=== PATIENT | male | born 1930 | race Caucasian/White ===

== ENCOUNTER → 2016-04-17 | Outpatient (CLI) | payer MEDICARE, BC, OTHER | LOC: YCHH 10:20 | PROVIDERS: ATTEND Family Medicine | DX: I50.33 Acute on chronic diastolic (congestive) heart failure (principal); E11.9 Type 2 diabetes mellitus without complications; D50.9 Iron deficiency anemia, unspecified; N19 Unspecified kidney failure ==

== ENCOUNTER → 2016-05-09 | Outpatient (CLI) | payer MEDICARE, BC, OTHER | LOC: YCHH 10:19 | PROVIDERS: ATTEND Family Medicine | DX: N18.3 Chronic kidney disease, stage 3 (moderate) (principal); N17.9 Acute kidney failure, unspecified ==

== ENCOUNTER → 2016-05-15 | Outpatient (CLI) | payer MEDICARE, BC, OTHER | LOC: YCHH 11:40 | PROVIDERS: ATTEND Family Medicine | DX: N18.3 Chronic kidney disease, stage 3 (moderate) (principal); N17.9 Acute kidney failure, unspecified; E11.9 Type 2 diabetes mellitus without complications ==

== ENCOUNTER 2016-06-04 15:11 | Inpatient (IN) | payer MEDICARE, BC, OTHER ==
[2016-06-04] MEDS ORDERED: FUROSEMIDE INJ 40 MG/4 ML VIAL IV ONE ×2 (15:58→19:58)
[2016-06-04] MEDS ORDERED: metOLazone 2.5 MG TAB PO ONE (15:58)
--- NOTE | 2016-06-04 16:39 | RAD ---
EXAM DESCRIPTION: XR CHEST 2 VIEWS CLINICAL HISTORY: Shortness of Breath. COMPARISON: 12/07/2015 TECHNIQUE: Two-views of the chest. FINDINGS: Median sternotomy wires. Heart size normal. Atherosclerotic aorta. Hiatal hernia Stable increased density medial left lung base likely linear subsegmental atelectasis or scar. Paucity of vascular markings in the lung apices similar to prior study. There is some linear scar in the left lung apex No pulmonary edema, acute alveolar infiltrate or effusion. No pneumothorax IMPRESSION: Stable chest. No acute infiltrate Paucity of vascular markings in the lung apices may relate to emphysema Stable linear subsegmental atelectasis or scar Electronically signed by: Hitesh Olvera MD 06/04/2016 16:37
--- NOTE | 2016-06-04 17:32 | ED.PDOC ---
History of Present Illness - General Chief Complaint: Cardiovascular Problem Stated Complaint: increased of work of breathing, weight gain Time Seen by Provider: 06/04/16 15:35 Source: patient Exam Limitations: no limitations - History of Present Illness Initial Comments: The patient is an 86-year-old male presenting to the emergency room secondary to progressive shortness of breath over the last week to week and a half. He has been retaining fluid with an increase in his baseline weight of approximately 7 pounds over the last week. He does take Lasix but his Lasix dose was decreased about a week ago as well. He does have some renal insufficiency which is the reason for reducing the Lasix dose. He is technically saturating well as far as his oxygen levels but he gets very short of breath with any activity. His abdomen is distended with some moderate ascites. No real peripheral edema. He does have some mild rales at bilateral lung bases. He does have a history of iron deficiency. He has had upper and lower endoscopies along with a pill endoscopy that were negative for any source of bleeding he has also been followed by Dr. Murguia and has received IV iron infusions in the past. No chest pain. No syncope. No near syncope.he does have a history of congestive heart failure. He has had admissions for this in the past. Timing/Duration: 1 week Severity: moderate Improving Factors: rest Worsening Factors: movement Associated Symptoms: loss of appetite, malaise, shortness of breath, weakness Allergies/Adverse Reactions: Allergies Clonidine [From Catapres-TTS] Allergy (Verified 06/04/16 15:26) Rash Lisinopril Allergy (Verified 06/04/16 15:26) Anaphylaxis Home Medications: Ambulatory Orders Aspirin [Aspirin EC] 81 mg PO DAILY 01/31/14 Fexofenadine HCl [Natividad Allergy] 180 mg PO DAILY 01/31/14 Simvastatin 20 mg PO BEDTIME 11/25/14 DULoxetine HCL [Cymbalta] 60 mg PO BEDTIME 06/14/15 Diltiazem HCl [Diltiazem HCl ER] 90 mg PO BID 06/14/15 Dutasteride [Avodart] 0.5 mg PO DAILY 06/14/15 Fluticasone/Salmeterol 250/50 [Advair 250/50 Diskus] 1 puff INH BID 06/14/15 Ipratropium/Albuterol [Duoneb] 3 ml NEB QID 06/14/15 Nystatin Powder 15 gm TOP DAILY PRN 06/15/15 Ferrous Gluconate [Fergon] 325 mg PO DAILY 09/05/15 Furosemide 40 mg PO DAILY 09/05/15 Glucosamine 1 each PO DAILY 09/05/15 Metoprolol Tartrate 50 mg PO BID 09/05/15 Ondansetron [Zofran Odt] 4 mg PO Q6HRS PRN #20 tab 09/05/15 Pantoprazole Sodium 40 mg PO DAILY 09/05/15 Polyethylene Glycol 3350 [Miralax] 17 gm PO DAILY 09/05/15 Sucralfate Suspension [Carafate Suspension] 1 gm PO QID 09/05/15 Tamsulosin HCl [Flomax] 0.4 mg PO DAILY 09/05/15 hydrALAZINE HCl [HydrALAzine HCl] 25 mg PO TID 09/05/15 Carbamazepine [Tegretol-Xr] 400 mg PO BID 12/07/15 Spiriva Respimat 2 puff INH DAILY 12/07/15 Cefdinir [Omnicef] 300 mg PO BID #12 cap 12/09/15 Magnesium Hydroxide [Milk Of Magnesia] 30 ml PO DAILY PRN #1 bottle 12/09/15 predniSONE [Prednisone] 30 mg PO DAILY #3 tab 12/09/15 Review of Systems - Review of Systems Constitutional: States: malaise EENTM: States: no symptoms reported Respiratory: States: orthopnea, short of breath Cardiology: States: no symptoms reported Gastrointestinal/Abdominal: States: no symptoms reported Genitourinary: States: no symptoms reported Musculoskeletal: States: no symptoms reported Skin: States: no symptoms reported Neurological: States: no symptoms reported Endocrine: States: no symptoms reported All other Systems: No Change from Baseline Past Medical History (General) - Patient Medical History Hx Seizures: No Hx Stroke: No Hx Dementia: No - BORDERLINE Hx Asthma: Yes Hx of COPD: Yes Hx Cardiac Disorders: Yes - CABG 2001 Hx Congestive Heart Failure: Yes Hx Pacemaker: No Hx Hypertension: Yes Hx Thyroid Disease: No Hx Diabetes: No Hx Gastroesophageal Reflux: Yes Hx Renal Disease: Yes Hx Cancer: No Hx of HIV: No Hx Hepatitis C: No Hx MRSA: No Surgical History: coronary bypass surgery - Vaccination History Hx Tetanus, Diphtheria Vaccination: Yes Hx Influenza Vaccination: Yes - 2016 Hx Pneumococcal Vaccination: Yes - 2011 - Social History Hx Tobacco Use: Yes - Quit 2004 Hx Chewing Tobacco Use: No Hx Alcohol Use: No Hx Substance Use: No Hx Substance Use Treatment: No Hx Depression: No Hx Physical Abuse: No Hx Emotional Abuse: No Hx Suspected Abuse: No - Activities of Daily Living Fdc/Assisted Living (if applicable):: [facility] Family Medical History - Family History Mother Name: Edilia Cabrera Living Status: Age at (years of age): 79 Cause of : Pneumonia Hx Family Hypertension: Yes Hx Family Diabetes: Yes Physical Exam - Physical Exam General Appearance: Alert, Comfortable, No apparent distress Eye Exam: bilateral normal Ears, Nose, Throat: normal ENT inspection, normal pharynx Neck: non-tender, full range of motion, supple, normal inspection Respiratory: chest non-tender, no respiratory distress, no accessory muscle use , crackles Cardiovascular/Chest: normal peripheral pulses, no edema, other - regular rate Peripheral Pulses: radial,right: 2+, radial,left: 2+, dorsalis pedis,right: 2+, dorsalis pedis,left: 2+ Gastrointestinal/Abdominal: non tender, soft, other - ascites Rectal Exam: deferred Back Exam: normal inspection, no CVA tenderness Extremity: normal range of motion, non-tender, normal inspection, no pedal edema , normal capillary refill Neurologic: alert, normal mood/affect, oriented x 3 Skin Exam: normal color Comments: Vital Signs - 24 hr 06/04/16 15:24 Temperature 98.1 F Pulse Rate [ 63 Left Radial] Respiratory 26 H Rate Blood Pressure 154/50 [Left Arm] O2 Sat by Pulse 94 L Oximetry Progress - Progress Progress: 06/04/16 17:37 the patient is an 86-year-old male presenting to the emergency room secondary to symptoms consistent with a CHF exacerbation including increasing abdominal distention along with orthopnea and dyspnea on exertion. He does have a history of congestive heart failure. He has been dosed with dose of IV Lasix and oral metolazone here. The issue is likely being exacerbated by symptomatic anemia. He has had multiple workups for the anemia but the source is not yet identified identified. No evidence of any bernarda GI bleed at this time. He is not having any chest pain. He does have a mild elevation of his CK and CK-MB. I would recommend that he have another set performed in approximately 8 hours to confirm no recent myocardial infarction however he is not having any chest pain whatsoever or any acute changes in the last 12 hours. The patient will be brought in and transfuse. Monitor renal function. He may benefit symptomatically from some low flow supplemental oxygen. 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 - Results/Orders Results/Orders: Laboratory Tests 06/04/16 16:15 WBC 4.4 L RBC 2.80 L Hgb 7.4 L* Hct 23.7 L MCV 84.8 MCH 26.4 L MCHC 31.3 L RDW 17.8 H Plt Count 195 MPV 7.2 L Absolute Neuts (auto) 2.80 Absolute Lymphs (auto) 0.80 L Absolute Monos (auto) 0.40 Absolute Eos (auto) 0.30 Absolute Basos (auto) 0.10 Neutrophils % 63.7 Lymphocytes % 17.6 L Monocytes % 8.8 Eosinophils % 7.4 H Basophils % 2.5 H PT 11.2 INR 0.990 PTT (SP) 30.2 Sodium 135 Potassium 4.5 Chloride 100 L Carbon Dioxide 26 Anion Gap 13.5 BUN 34 H Creatinine 1.70 H BUN/Creatinine Ratio 20.0 Random Glucose 108 H Serum Osmolality 278.2 Calcium 8.1 L Total Bilirubin 0.4 AST 18 ALT 15 Alkaline Phosphatase 74 Creatine Kinase 220 H* CK-MB (CK-2) 6.2 H* CK-MB (CK-2) % 2.82 Troponin I 0.02 B-Natriuretic Peptide 529.0 H* Serum Total Protein 6.3 L Albumin 3.9 Globulin 2.4 Albumin/Globulin Ratio 1.6 ekg with a regular rhythm but can not confirm sinus rhythm on this ekg. mild bradycardia. slow r wave progression. no acute st seg ment changes. cxr without acute changes. chronic changes present. Departure - Departure Clinical Impression: Symptomatic anemia Congestive heart failure Qualifiers: Congestive heart failure type: unspecified congestive heart failure type Congestive heart failure chronicity: acute on chronic Qualifier Code: (I50.9) Heart failure, unspecified Disposition: Admit Patient Home Medications: Ambulatory Orders Aspirin [Aspirin EC] 81 mg PO DAILY 01/31/14 Fexofenadine HCl [Natividad Allergy] 180 mg PO DAILY 01/31/14 Simvastatin 20 mg PO BEDTIME 11/25/14 DULoxetine HCL [Cymbalta] 60 mg PO BEDTIME 06/14/15 Diltiazem HCl [Diltiazem HCl ER] 90 mg PO BID 06/14/15 Dutasteride [Avodart] 0.5 mg PO DAILY 06/14/15 Fluticasone/Salmeterol 250/50 [Advair 250/50 Diskus] 1 puff INH BID 06/14/15 Ipratropium/Albuterol [Duoneb] 3 ml NEB QID 06/14/15 Nystatin Powder 15 gm TOP DAILY PRN 06/15/15 Ferrous Gluconate [Fergon] 325 mg PO DAILY 09/05/15 Furosemide 40 mg PO DAILY 09/05/15 Glucosamine 1 each PO DAILY 09/05/15 Metoprolol Tartrate 50 mg PO BID 09/05/15 Ondansetron [Zofran Odt] 4 mg PO Q6HRS PRN #20 tab 09/05/15 Pantoprazole Sodium 40 mg PO DAILY 09/05/15 Polyethylene Glycol 3350 [Miralax] 17 gm PO DAILY 09/05/15 Sucralfate Suspension [Carafate Suspension] 1 gm PO QID 09/05/15 Tamsulosin HCl [Flomax] 0.4 mg PO DAILY 09/05/15 hydrALAZINE HCl [HydrALAzine HCl] 25 mg PO TID 09/05/15 Carbamazepine [Tegretol-Xr] 400 mg PO BID 12/07/15 Spiriva Respimat 2 puff INH DAILY 12/07/15 Cefdinir [Omnicef] 300 mg PO BID #12 cap 12/09/15 Magnesium Hydroxide [Milk Of Magnesia] 30 ml PO DAILY PRN #1 bottle 12/09/15 predniSONE [Prednisone] 30 mg PO DAILY #3 tab 12/09/15 Decision To Admit - Decistion To Admit Decision to Admit Reason: Medical Nature Decision to Admit Date: 06/04/16 Decision to Admit Time: 17:39
[2016-06-04] MEDS ORDERED: ACETAMINOPHEN 325 MG TAB PO ONE ×2 (17:42→19:58)
[2016-06-04] MEDS ORDERED: predniSONE 20 MG TAB PO ONE (17:42)
--- NOTE | 2016-06-04 18:08 | HP ---
SUPERVISING PHYSICIAN: Valdez Gilman M.D. CHIEF COMPLAINT: Shortness of breath. HISTORY OF PRESENT ILLNESS: This is an 86 year-old male patient who lives at [facility]. He is a patient of Dr. Mccord. He has had progressive shortness of breath over the last week to week and a half, but over the last 2 days it has progressed to the point that he had to come to the Emergency Room. He has had a 5 to 7 pound weight gain over the last week or so. He does have a history of congestive heart failure as well as chronic obstructive pulmonary disease. He was thinking it was his chronic obstructive pulmonary disease that was causing the problem, although he felt like he had "fluid on his stomach." He also has a history of chronic anemia that is associated with iron deficiency anemia as well as anemia of chronic disease due to his chronic kidney disease. He received several units of blood and some iron within the last [address] Tolentino did an endoscopy recently and it was negative for any source of bleeding. In the Emergency Room, his oxygen saturations remained above 93% but his BNP was 529. He was found to have a hemoglobin of 7.4 and hematocrit 23.7. BUN 34, creatinine 1.7. He has a baseline creatinine of about 1.4 to 1.7. His chest x-ray in the Emergency Room showed a stable chest with no acute infiltrates and paucity of vascular markings in the lung apices that may be related to the emphysema. PT 11.2, INR 0.99, PTT 30.2. I was called for admission to the hospital. PAST MEDICAL HISTORY: 1. Anemia of chronic kidney disease. 2. Chronic kidney disease stage III. 3. Chronic obstructive pulmonary disease. 4. Gastroesophageal reflux disease. 5. History of tobacco abuse. 6. Hyperlipidemia. 7. Hypertension. 8. Idiopathic progressive polyneuropathy. 9. Congestive heart failure. He sees Dr. Combs in [place] and his last echocardiogram that I have has an ejection fraction of 57% in 2009. PAST SURGICAL HISTORY: 1. Coronary artery bypass graft in 1989. 2. Hernia repair. OUTPATIENT MEDICATIONS: Per the EMR and awaiting verification. ALLERGIES: LISINOPRIL AND ADHESIVE IN THE CATAPRES PATCH. SOCIAL HISTORY: He is retired . He is . He lives at [facility]. He has 4 children. He has a past history of cigarette smoking but he quit in 1988. He drinks alcohol socially approximately 1 to 2 times per month. He denies any illicit drug use. REVIEW OF SYSTEMS: GENERAL: Complains of fatigue and weight change of 5 to 7 pounds over the last 1 to 2 weeks. Denies fever or chills. HEENT: Denies sinus symptoms, ear pain, vision changes or sore throat. RESPIRATORY: Complains of shortness of breath and a mild cough as well as occasional wheezing. CARDIAC: Denies chest pain, palpitations or tachycardia. ABDOMEN: Complains of "tightness across my belly" but he denies constipation, diarrhea, nausea or vomiting. EXTREMITIES: Denies edema. NEUROLOGIC: Complains of weakness. Denies seizures, headache or dizziness. PHYSICAL EXAMINATION: VITAL SIGNS: He is afebrile. Pulse rate 68, blood pressure in the Emergency Room was 147/57, it is now 171/62, respiratory rate 22, O2 sat is 93% on 2 liters nasal cannula. GENERAL: This is an 86 year-old male who is lying in his hospital bed. He is in no acute distress. HEENT: Normocephalic and atraumatic. Pupils are equal and reactive. Oropharynx is clear. Oral mucous membranes are moist. NECK: Supple without mass. There is no discernible jugular venous distention. CHEST: There are scattered crackles throughout all lung harding. There is equal rise and fall of the chest with inspiration and expiration. CARDIOVASCULAR: Regular rate and rhythm. ABDOMEN: Rounded. There is ascites. It is non-tender. Bowel sounds are positive. EXTREMITIES: No cyanosis, clubbing or edema. He has a skin tear to the right arm that has a bandage on it and it is dry and intact. NEUROLOGIC: He is awake, alert and oriented times three. LABORATORY: As per the history of present illness with the exception of WBCs are 4.4, chloride 100. Urine is within normal limits. All other labs and films have been reviewed via the EMR. ASSESSMENT: 1. Congestive heart failure, unknown etiology. He has a BNP of 529 and his last echocardiogram on record is in 2009 with an ejection fraction of 57%. 2. Anemia most likely due to chronic disease with an H&H of 7.2 and 23.7. 3. Chronic obstructive pulmonary disease. 4. Chronic kidney disease stage III with a baseline creatinine of 1.4 to 1.7. 5. History of iron deficiency anemia receiving multiple iron infusions as well as multiple blood transfusions in the past. 6. Gastroesophageal reflux disease. 7. Neuropathy. PLAN: We will admit the patient to the hospital. We will initiate congestive heart failure guidelines. I will also give him 2 units of packed red blood cells slowly. I have restarted his medications, including his COPD medications as well as his antihypertensive. I will try to call Dr. Holland's office in the morning and get his latest echocardiogram report as well as the report from Dr. Tolentino on his last scope. I have started routine DuoNeb as well as Albuterol p.r.n. nebulizer treatments and Protonix for ulcer prophylaxis. I will hold off on Lovenox for now to make sure he is not bleeding acutely. I have done stool guaiacs and I have ordered SCDs for DVT prophylaxis. Dr. Gilman is the collaborating physician available for consultation. #[id number] [facility]
[2016-06-04] MEDS ORDERED: diphenhydrAMINE HCL 50 MG/ML VIAL IV ONE (19:58)
[2016-06-04] MEDS ORDERED: SODIUM CHLORIDE 0.9% 500ML 500 ML IVS SCH (20:00)
[2016-06-04] MEDS ORDERED: NITROGLYCERIN 0.4 MG 25 EA TAB SL PRN (20:03)
[2016-06-04] MEDS ORDERED: ACETAMINOPHEN 325 MG TAB PO PRN (20:03)
[2016-06-04] MEDS ORDERED: ONDANSETRON INJ 4 MG/2 ML VIAL IV PRN (20:03)
[2016-06-04] MEDS ORDERED: ALBUTEROL SULFATE 2.5 MG/3 ML VIAL NEB PRN (20:03)
[2016-06-04] MEDS ORDERED: carBAMazepine 200 MG TAB ONE (20:53)
[2016-06-04] MEDS ORDERED: diltiaZEM HCL TAB 30 MG TAB ONE (20:54)
[2016-06-04] MEDS: DILTIAZEM HCL 90 MG PO SCH (20:55)
[2016-06-04] MEDS: CARBAMAZEPINE 400 MG PO SCH (20:55)
[2016-06-04] MEDS: IV SET AND CAP CHANGE INJ INJ SCH (20:55)
[2016-06-04] MEDS: SUCRALFATE 1 GM/10 ML 1 GM UD PO SCH (20:55)
[2016-06-04] MEDS: SIMVASTATIN 20 MG TAB PO SCH (20:56)
[2016-06-04] MEDS ORDERED: METOPROLOL TARTRATE 50 MG TAB PO SCH (21:00)
--- NOTE | 2016-06-04 21:00 | PCM.CORE ---
Physician DVT/VTE - Nurse DVT Assessment & Total Each Risk Factor Represents 3 Points: Age over 75 years, Medical PT with Hx of AK, CHF, Severe infection/sepsis Each Risk Factor is 1 Point: Serious Lung disease (pnemonia <1month, COPD, emphysema,etc) DVT Assessment Score: 7
[2016-06-04] MEDS: FLUTICASONE/SALMETEROL 250/50 14 PUFF/17 GM INH INH SCH (22:00)
[2016-06-05] MEDS ORDERED: SODIUM CHLORIDE 0.9% 500ML 500 ML IVS PRN (07:06)
[2016-06-05] MEDS ORDERED: SODIUM CHLORIDE 0.9% 10 ML VIAL IV PRN (07:07)
[2016-06-05] MEDS: METOPROLOL TARTRATE 50 MG TAB PO SCH ×3 (08:01→17:31)
[2016-06-05] MEDS: NON-FORMULARY MEDICATION 1 EA MIS (Tiotropium Bromide Monohydrate [Spiriva Respimat] 2 PUF IN SCH (08:48)
[2016-06-05] MEDS: IPRATROPIUM/ALBUTEROL 3 ML VIAL INH SCH ×4 (08:48→20:29)
[2016-06-05] MEDS: FLUTICASONE/SALMETEROL 250/50 14 PUFF/17 GM INH INH SCH ×2 (08:48→20:33)
[2016-06-05] MEDS: FUROSEMIDE INJ 40 MG/4 ML VIAL IV SCH ×2 (09:17→17:31)
[2016-06-05] MEDS: DUTASTERIDE 0.5 MG CAP PO SCH (09:18)
[2016-06-05] MEDS: DULoxetine HCL 30 MG CAP PO SCH (09:19)
[2016-06-05] MEDS: SUCRALFATE 1 GM/10 ML 1 GM UD PO SCH ×3 (09:19→21:18)
[2016-06-05] MEDS: LORATADINE 10 MG TAB PO SCH (09:19)
[2016-06-05] MEDS: DILTIAZEM HCL 90 MG PO SCH ×2 (09:19→21:18)
[2016-06-05] MEDS: TAMSULOSIN 0.4 MG CAP PO SCH (09:19)
[2016-06-05] MEDS: CARBAMAZEPINE 400 MG PO SCH ×2 (09:20→21:23)
[2016-06-05] MEDS ORDERED: predniSONE 20 MG TAB PO ONE (14:33)
[2016-06-05] MEDS ORDERED: IPRATROPIUM/ALBUTEROL 3 ML VIAL NEB ONE (14:34)
[2016-06-05] MEDS ORDERED: cefTRIAXone SODIUM 1 GM VIAL ONE (15:00)
[2016-06-05] MEDS ORDERED: SODIUM CHL 0.9% 50ML MIN-BAG+ 50 ML IVPB ONE (15:00)
[2016-06-05] MEDS: cefTRIAXone SODIUM 1 GM in SODIUM CHL 0.9% 50ML MIN-BAG+ 50 ML IVPB SCH (15:08)
--- NOTE | 2016-06-05 15:29 | RAD ---
EXAM DESCRIPTION: XR ABDOMEN 2 VIEWS SUPINE ERECT CLINICAL HISTORY: Anemia, Abdominal distention COMPARISON: September 05, 2015 FINDINGS: AP supine and upright views of the abdomen show a nonspecific, nonobstructive bowel gas pattern with no evidence for free intraperitoneal air. Findings suggest moderate left retrocardiac hiatal hernia. No air-filled dilated loops of small bowel are seen. No significant air-fluid levels are identified. Increased amount of formed fecal material throughout the colon is seen. No obvious organomegaly is seen. No abnormal calcifications are seen in the expected location of the renal collecting systems. Visualized lung bases show no acute infiltrate. IMPRESSION: Nonspecific abdominal series. Moderate constipation or obstipation is seen. Probable retrocardiac hiatal hernia. Electronically signed by: Siva Gary MD 06/05/2016 15:27
[2016-06-05] MEDS ORDERED: MAGNESIUM HYDROXIDE 30 ML UD PO ONE (20:00)
--- NOTE | 2016-06-05 20:25 | PN ---
DATE: 06/05/16 SUPERVISING PHYSICIAN: Valdez Gilman M.D. SUBJECTIVE: The patient is lying in his hospital bed. He is in no acute distress. His daughter is at the bedside. He states he feels much better since he has gotten the blood. He also denies any shortness of breath, chest pain or dizziness. He does complain of some abdominal pain that is rather diffuse in nature mostly along the epigastric and right upper quadrant. He did say he had a bowel movement today but it was very small. OBJECTIVE: He is afebrile, heart rate 62, blood pressure 152/60, respiratory rate 22, O2 sat is 93%. GENERAL: This is an 86 year-old male patient who is lying in his hospital bed in no acute distress. RESPIRATORY: Coarse breath sounds throughout and there are no noticeable crackles. He does have a few expiratory wheezes in the apices. CARDIAC: Regular rate and rhythm. ABDOMEN: Rounded. He does have an umbilical hernia and he is slightly tender in that left upper quadrant. Bowel sounds are positive. There is some ascites but it is slightly improved since yesterday. EXTREMITIES: No cyanosis, clubbing or edema. NEUROLOGIC: He is awake, alert and oriented times three. LABORATORY: His WBCs have improved from 4.4 to 5.3 today. Hemoglobin and hematocrit are improved to 10 and 31.7 since the 2 units of blood yesterday. Sodium 139, potassium 4.8, chloride 99, BUN 35, creatinine 1.68, glucose 133, magnesium 2.7. Abdominal x-ray shows moderate constipation with a retrocardiac hiatal hernia. All other labs and films have been reviewed via the EMR. ASSESSMENT: 1. Congestive heart failure of unknown etiology with a BNP of 529 and his last echocardiogram on record is 2009 with an ejection fraction of 57%. 2. Anemia most likely due to chronic disease that has improved after 2 units of packed red blood cells. 3. Exacerbation of chronic obstructive pulmonary disease. 4. Chronic kidney disease stage III with a baseline creatinine of 1.4 to 1.7. 5. History of iron deficiency anemia receiving multiple iron infusions as well as multiple blood transfusions in the past. 6. Gastroesophageal reflux disease. 7. Neuropathy. PLAN: His anemia has improved, but I believe his condition has been complicated by an exacerbation of chronic obstructive pulmonary disease. I have given him 1 dose of p.o. steroids and will continue a tapered dose tomorrow. I have started him on some Rocephin and I will continue with some gentle diuresis. We have ordered pulmonary hygiene as well as incentive spirometry. I am going to give him 2 doses of Milk of Magnesia today as I think his abdominal pain is most likely due to constipation. I will leave him NPO at midnight as we may need to do a CT, but I will discuss that with Dr. Gilman. I will do routine repeat of labs in the morning as well as a chest x- ray. We will continue to monitor the patient closely and followup as needed. #[id number] [facility]
[2016-06-05] MEDS: SIMVASTATIN 20 MG TAB PO SCH (21:17)
[2016-06-05] MEDS: MAGNESIUM HYDROXIDE 30 ML UD PO SCH (21:18)
[2016-06-06] MEDS ORDERED: SODIUM CHL 0.9% 50ML MIN-BAG+ 50 ML IVPB ONE ×2 (03:51→15:39)
[2016-06-06] MEDS ORDERED: cefTRIAXone SODIUM 1 GM VIAL ONE ×2 (03:51→15:39)
[2016-06-06] MEDS: SODIUM CHLORIDE 0.9% (FLUSH) 10 ML SYG IV PRN ×2 (03:55→08:39)
[2016-06-06] MEDS: cefTRIAXone SODIUM 1 GM in SODIUM CHL 0.9% 50ML MIN-BAG+ 50 ML IVPB SCH ×2 (03:55→15:43)
--- NOTE | 2016-06-06 07:02 | RAD ---
EXAM: Two view chest. INDICATION: Chest pain. COMPARISON: Chest x-ray: 06/04/2016. FINDINGS: Cardiac silhouette: Unremarkable. Vicky: Unremarkable. Lobar consolidation: None. Pleural effusion: None. Pneumothorax: None. Other: Median sternotomy wires are noted Bones: Unremarkable. Other: None. IMPRESSION: 1. No acute cardiopulmonary process. 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
[2016-06-06] MEDS: IPRATROPIUM/ALBUTEROL 3 ML VIAL INH SCH ×4 (07:57→20:48)
[2016-06-06] MEDS: NON-FORMULARY MEDICATION 1 EA MIS (Tiotropium Bromide Monohydrate [Spiriva Respimat] 2 PUF IN SCH (07:57)
[2016-06-06] MEDS: FLUTICASONE/SALMETEROL 250/50 14 PUFF/17 GM INH INH SCH ×2 (07:57→20:55)
[2016-06-06] MEDS: METOPROLOL TARTRATE 50 MG TAB PO SCH ×2 (08:07→17:37)
[2016-06-06] MEDS: DUTASTERIDE 0.5 MG CAP PO SCH (08:32)
[2016-06-06] MEDS: DULoxetine HCL 30 MG CAP PO SCH (08:33)
[2016-06-06] MEDS: predniSONE 20 MG TAB PO SCH (08:33)
[2016-06-06] MEDS: LORATADINE 10 MG TAB PO SCH (08:34)
[2016-06-06] MEDS: SUCRALFATE 1 GM/10 ML 1 GM UD PO SCH ×3 (08:35→20:31)
[2016-06-06] MEDS: CARBAMAZEPINE 400 MG PO SCH ×2 (08:35→20:31)
[2016-06-06] MEDS: TAMSULOSIN 0.4 MG CAP PO SCH (08:35)
[2016-06-06] MEDS: DILTIAZEM HCL 90 MG PO SCH ×2 (08:36→20:31)
[2016-06-06] MEDS: FUROSEMIDE INJ 40 MG/4 ML VIAL IV SCH ×2 (08:37→17:35)
--- NOTE | 2016-06-06 10:13 | CT ---
Study: CT abdomen and pelvis. Indication: abdominal pain Technique: CT of the abdomen and pelvis obtained without intravenous contrast. Comparison: None. Findings: Mild left basilar atelectasis versus scarring noted. Mild cardiomegaly. Median sternotomy wires. Large hiatal hernia. Several calcified gallstones within the gallbladder. Liver, pancreas, spleen, adrenal glands, and right kidney demonstrate a normal unenhanced CT appearance. 2 mm central nonobstructing left renal calculus. No hydronephrosis. Bladder distended. Prostatomegaly. Tiny fat containing left inguinal hernia. The sigmoid colon is redundant. There is an umbilical hernia with a fascial defect measuring up to 3.3 cm which contains a loop of mildly constricted mid sigmoid colon. Mild constipation. Mild colonic diverticulosis without diverticulitis. Small bowel and appendix unremarkable. No free fluid. No free air. No pathologically enlarged abdominopelvic lymphadenopathy. Calcific atherosclerosis. No acute osseous abnormality. Impression: Cholelithiasis. 2 mm central nonobstructing left renal calculus. Prostatomegaly. Correlation PSA and physical exam recommended. Distended bladder likely secondary to chronic bladder outlet obstruction. Umbilical hernia containing the anterior wall of the mid sigmoid colon which is mildly constricted. Surgical consultation advised. Large hiatal hernia. Atherosclerosis. Additional findings as above. Electronically signed by: Michael Dolan MD 06/06/2016 10:10
--- NOTE | 2016-06-06 13:20 | CONS ---
DATE OF CONSULTATION: 06/06/16 HISTORY OF PRESENT ILLNESS: The patient is an 86-year-old male who was admitted with shortness of breath and found to have abdominal distention with a history of no bowel movement for several days having passed gas approximately two days ago. He has been on increased diuretics due to an increase in abdominal girth and weight increase. There is no history of melanotic stools, change in bowel habits, blood per rectum, or bloody vomitus. PAST MEDICAL HISTORY: 1. Coronary artery disease status post coronary artery bypassing. 2. Chronic hypertension. 3. Left ventricular hypertrophy. 4. Hypercholesterolemia. 5. Chronic obstructive pulmonary disease, which is severe. PAST SURGICAL HISTORY: 1. Incarcerated ventral hernia repair. 2. Coronary artery bypass grafting. CURRENT MEDICATIONS: 1. Baby aspirin. 2. Advair. 3. Avodart. 4. Duloxetine. 5. Diltiazem. 6. Furosemide. 7. Hydralazine. 8. Metoprolol. 9. Nystatin. 10. Pantoprazole. 11. Simvastatin. 12. Spiriva. 13. Tamsulosin. 14. Sucralfate. 15. Tegretol. 16. Glucosamine. 17. MiraLAX. 18. Probiotic. 19. Cetirizine p.r.n. 20. Albuterol ipratropium. ALLERGIES: NO KNOWN DRUG ALLERGIES. HE HAS BEEN TAKEN OFF RADHA INHIBITORS FOR HIS RENAL DYSFUNCTION. FAMILY HISTORY: Positive for diabetes and coronary artery disease. SOCIAL HISTORY: There is history of tobacco use. He does not drink alcohol. He previously served in the [employer]. He is currently retired. REVIEW OF SYSTEMS: Noncontributory except as in the history of present illness. PHYSICAL EXAMINATION: GENERAL: The patient is awake, alert, cooperative, in no acute distress. ABDOMEN: Soft and distended. There is mild diffuse tenderness. There is a reducible hernia above the umbilicus and associated with a previous incision. It is mildly tender, but reducible with movement of gas associate with it. RECTAL: Deferred. LABORATORY: CT scan is reviewed which reveals a ventral, umbilical, or incisional hernia with colon as the sigmoid colon as part of its wall or within the hernia. White count 7.6, hemoglobin 9.8, platelet count 232,000, 87.9% neutrophils. Coags are normal. Chemistries reveal potassium 4.5, creatinine 1.97, calcium 8.3, magnesium mildly elevated at 3.4. CK was elevated on admission as was CK-MB, but troponin and percentage of CK-MB was within normal limits. BNP was elevated at 529. ASSESSMENT: 1. Reducible hernia containing colon without signs of strangulation or inflammatory process. 2. Obstipation. 3. Coronary artery disease. 4. Chronic obstructive pulmonary disease, seems to be currently stable. PLAN: Recommend gentle catharsis from below today and follow on a daily basis. He probably should have this hernia repaired, but the question is to whether or not this should be done in a hospital with an ICU or here in [place]. We will follow him with you. #[id number] [facility]
[2016-06-06] MEDS ORDERED: SODIUM BICARBONATE 10MEQ/10ML 75 MEQ in DEXTROSE 5% 1000ML 1,000 ML IV PRN (17:09)
[2016-06-06] MEDS ORDERED: SODIUM BICARBONATE VIAL 50 MEQ/50 ML VIAL ONE ×2 (17:20→17:29)
[2016-06-06] MEDS ORDERED: DEXTROSE 5% 1000ML 1,000 ML IVS ONE (17:21)
[2016-06-06] MEDS ORDERED: SODIUM BICARBONATE VIAL 75 MEQ in DEXTROSE 5% 1000ML 1,000 ML IVS PRN (17:34)
--- NOTE | 2016-06-06 18:07 | PN ---
DATE: 06/06/16 SUPERVISING PHYSICIAN: Hitesh Stahl M.D. SUBJECTIVE: The patient is lying in his hospital bed. He continues complaints of some diffuse epigastric and left upper quadrant abdominal pain plus he complains of pain around the umbilical hernia. He received several doses of Milk of Magnesia last night and has not had a bowel movement since. Otherwise he denies any shortness of breath, chest pain, nausea or vomiting. His daughter is at the bedside and she has no questions at this time either. OBJECTIVE: VITAL SIGNS: Temperature 97.4, heart rate 66, blood pressure 157/72 , respiratory rate 18, O2 sats are 92% on room air. GENERAL: This is an 86 year -old obese male patient who is sitting up in his hospital bed. He is in no acute distress. RESPIRATORY: Coarse sounds bilaterally, somewhat diminished at the bases. CARDIAC: regular rate and rhythm. ABDOMEN: Slightly distended. It is somewhat firm. There is some mild tenderness around the umbilical hernia as well as the left upper quadrant. EXTREMITIES: No cyanosis, clubbing or edema. NEUROLOGIC: He is awake, alert and oriented times three. LABORATORY: WBC 7.6, hemoglobin 9.8, hematocrit 30.9, neutrophils 87.9. BUN 47 , creatinine 1.97, calcium 8.3, magnesium 3.4. He has 2 stool occult bloods that are positive. Abdominal x-ray from yesterday shows a moderate amount of constipation. There is a questionable small bowel obstruction. CT of the abdomen shows cholelithiasis with a 2 mm central nonobstructing left renal calculous, prostatomegaly with correlation of PSA and physical exam recommended. He has a distended bladder most likely secondary to chronic bladder outlet obstruction. He also has an umbilical hernia containing the anterior wall of the mid sigmoid colon which is mildly constricted. A surgical consultation is advised. He has a large hiatal hernia and atherosclerosis. All other labs and films have been reviewed via the EMR. ASSESSMENT: 1. Congestive heart failure of diastolic etiology. BNP was 529 on admission and ejection fraction of 67% on his echocardiogram per Dr. Combs in December of 2015. 2. Anemia most likely due to chronic disease that is improved after 2 units of packed red blood cells. 3. Exacerbation of chronic obstructive pulmonary disease. 4. Chronic kidney disease stage III with a baseline creatinine of 1.4 to 1.7. 5. History of iron deficiency anemia receiving multiple iron infusions as well as multiple blood transfusions in the past. 6. Constipation. 7. Reducible hernia containing colon without signs of strangulation or inflammatory process. 8. Neuropathy. 9. Gastroesophageal reflux disease. PLAN: I have consulted Dr. Roy in regards to this hernia. I have taken his recommendations and ordered an soap suds enema. If he has no results or minimal results, we will give him a Dulcolax suppository. We will repeat his labs and a chest and abdominal x-ray in the morning. He has also been placed on a clear liquid diet until his constipation resolves. He may need to be transferred to a higher level of care if there are any complications from his abdominal issues as he has a quite complicated history with his chronic obstructive pulmonary disease and coronary artery disease as well as his chronic renal insufficiency. I will continue to monitor him closely and followup as needed. Dr. Stahl is the collaborating physician available for consultation. #[id number] [facility]
[2016-06-06] MEDS ORDERED: BISACODYL SUPPOSITORY 10 MG PR ONE (20:00)
[2016-06-06] MEDS: SIMVASTATIN 20 MG TAB PO SCH (20:31)
[2016-06-06] MEDS: MAGNESIUM HYDROXIDE 30 ML UD PO SCH (20:31)
[2016-06-07] MEDS ORDERED: cefTRIAXone SODIUM 1 GM VIAL ONE ×2 (03:17→15:05)
[2016-06-07] MEDS ORDERED: SODIUM CHL 0.9% 50ML MIN-BAG+ 50 ML IVPB ONE ×2 (03:17→15:04)
[2016-06-07] MEDS: cefTRIAXone SODIUM 1 GM in SODIUM CHL 0.9% 50ML MIN-BAG+ 50 ML IVPB SCH ×2 (03:21→15:35)
--- NOTE | 2016-06-07 06:41 | RAD ---
EXAM: Two view chest. INDICATION: Chest pain. COMPARISON: Chest x-ray: 06/06/2016. FINDINGS: Cardiac silhouette: Unremarkable. Vicky: Unremarkable. Lobar consolidation: None. Pleural effusion: None. Pneumothorax: None. Other: Median sternotomy wires are noted Bones: Unremarkable. Other: None. IMPRESSION: 1. No acute cardiopulmonary process. Electronically signed by: Tavares Alarcon MD 06/07/2016 6:40 AM BRAND DEVELOPMENT MANAGER
--- NOTE | 2016-06-07 06:41 | RAD ---
CLINICAL HISTORY:?SBO. :1930. Sex:Male. TECHNIQUE: Supine and upright views of the abdomen. There is moderate, nonspecific gaseous distention of the colon. There is a large amount of stool within the colon. There are no dilated loops of small bowel. There is no mass. There is no free air. There is no opaque calculus. Skeletal structures are unremarkable. The visible lung bases are clear IMPRESSION: Moderate distention of the colon with a large amount of stool. Electronically signed by: Tavares Alarcon MD 06/07/2016 6:40 AM FIRE CONTROL MECHANIC
[2016-06-07] MEDS: METOPROLOL TARTRATE 50 MG TAB PO SCH ×2 (08:00→16:44)
[2016-06-07] MEDS: NON-FORMULARY MEDICATION 1 EA MIS (Tiotropium Bromide Monohydrate [Spiriva Respimat] 2 PUF IN SCH (08:50)
[2016-06-07] MEDS: FLUTICASONE/SALMETEROL 250/50 14 PUFF/17 GM INH INH SCH ×2 (08:50→20:21)
[2016-06-07] MEDS: IPRATROPIUM/ALBUTEROL 3 ML VIAL INH SCH ×4 (08:50→20:21)
[2016-06-07] MEDS: SUCRALFATE 1 GM/10 ML 1 GM UD PO SCH ×3 (09:14→21:14)
[2016-06-07] MEDS: LORATADINE 10 MG TAB PO SCH (09:14)
[2016-06-07] MEDS: DULoxetine HCL 30 MG CAP PO SCH (09:14)
[2016-06-07] MEDS: DUTASTERIDE 0.5 MG CAP PO SCH (09:14)
[2016-06-07] MEDS: predniSONE 20 MG TAB PO SCH (09:14)
[2016-06-07] MEDS: TAMSULOSIN 0.4 MG CAP PO SCH (09:15)
[2016-06-07] MEDS: FUROSEMIDE INJ 40 MG/4 ML VIAL IV SCH (09:15)
[2016-06-07] MEDS: CARBAMAZEPINE 400 MG PO SCH ×2 (09:15→21:30)
[2016-06-07] MEDS: DILTIAZEM HCL 90 MG PO SCH ×2 (09:16→21:30)
[2016-06-07] MEDS ORDERED: BISACODYL TAB 5 MG TAB PO ONE ×2 (10:11→11:31)
[2016-06-07] MEDS: POLYETHYLENE GLYCOL 3350 17 GM PCKT PO SCH (11:35)
--- NOTE | 2016-06-07 14:26 | PN ---
DATE: 06/07/16 SUPERVISING PHYSICIAN: Hitesh Stahl M.D. SUBJECTIVE: The patient is sitting on the side of the bed. He has just ambulated in the hallway. He has no complaints of shortness of breath, chest pain, nausea or vomiting or dizziness. He does state he has abdominal pain but it is much less painful than it was yesterday. He says that he had a very small bowel movement at midnight last night, but he felt better after getting up and walking in the halls. Dr. Roy is at bedside and had a lengthy discussion about his plan of care, including additional enemas as well as a laxative and putting him on MiraLAX. The patient's daughter states that he has an appointment with Dr. Tolentino next Thursday to review one of his tests. OBJECTIVE: VITAL SIGNS: He is afebrile, pulse rate 58, blood pressure 130s to 150s/70s, but his last blood pressure was 188/68. Respiratory rate 20, O2 sat 96% on room air. GENERAL: This is an 86 year-old male patient who is sitting on the side of his bed. He is in no acute distress. RESPIRATORY: He is essentially clear to auscultation. CARDIAC: Regular rate and rhythm. ABDOMEN: Rounded, slightly firm. He still has an umbilical hernia that is reducible. There is no acute tenderness noted other than around the hernia and it has improved since yesterday. Bowel sounds are positive. EXTREMITIES: No cyanosis , clubbing or edema. NEUROLOGIC: He is awake, alert and oriented times three. LABORATORY: Hemoglobin 9.3, hematocrit 29.2. Sodium 135, potassium 3.8, chloride 93, carbon dioxide 32, BUN 53, creatinine 1.88, magnesium 3.7. Abdominal x-ray is somewhat improved since yesterday, but he still has moderate distention of the colon along with a large amount of stool. Chest x-ray shows a stable chest. All other labs and films have been reviewed via the EMR. ASSESSMENT: 1. Congestive heart failure of diastolic etiology. His BNP was 529 on admission and and ejection fraction of 67% on his echocardiogram per Dr. Bragg in 2015. The congestive mechanism is mostly resolved. 2. Anemia most likely due to chronic disease as it has improved after 2 units of packed red blood cells. May be beneficial to watch his H&H as it is stable at this time but it is slightly trending downward. 3. Reducible hernia containing colon without signs of strangulation or inflammatory process. 4. Constipation. 5. Exacerbation of chronic obstructive pulmonary disease that has improved and now stable. 6. Chronic kidney disease stage III with a baseline creatinine of 1.4 to 1.7. 7. History of iron deficiency anemia. 8. Neuropathy. 9. Gastroesophageal reflux disease. Dr. Roy is monitoring the patient's gastrointestinal status. PLAN: We will give 1,000 mL of soap suds enema today as well as some Dulcolax laxative. If he has no results by this afternoon, we will repeat that. I have also added MiraLAX daily. He may need to be on Amitiza or Linzess at some point. Most of his chronic obstructive pulmonary disease and congestive heart failure symptoms have resolved. I will repeat an H&H, a BNP and magnesium in the morning. I will taper off his steroids. I will discontinue his IV Lasix and put him on p.o. Lasix. Continue to monitor the patient closely and followup as needed. Dr. Stahl is the collaborating physician available for consultation. #[id number] [facility]
[2016-06-07] MEDS: IV SET AND CAP CHANGE INJ INJ SCH (20:30)
[2016-06-07] MEDS: SIMVASTATIN 20 MG TAB PO SCH (21:14)
[2016-06-07] MEDS: MAGNESIUM HYDROXIDE 30 ML UD PO SCH (21:14)
[2016-06-07] MEDS: SODIUM CHLORIDE 0.9% (FLUSH) 10 ML SYG IV SCH (21:14)
[2016-06-08] MEDS ORDERED: SODIUM CHL 0.9% 50ML MIN-BAG+ 50 ML IVPB ONE ×2 (03:00→14:17)
[2016-06-08] MEDS ORDERED: cefTRIAXone SODIUM 1 GM VIAL ONE ×2 (03:00→14:17)
[2016-06-08] MEDS: SODIUM CHLORIDE 0.9% (FLUSH) 10 ML SYG IV PRN (03:05)
[2016-06-08] MEDS: cefTRIAXone SODIUM 1 GM in SODIUM CHL 0.9% 50ML MIN-BAG+ 50 ML IVPB SCH ×2 (03:06→15:02)
[2016-06-08] MEDS ORDERED: predniSONE 10 MG TAB ONE (07:29)
[2016-06-08] MEDS ORDERED: FUROSEMIDE 40 MG TAB ONE (07:29)
[2016-06-08] MEDS: METOPROLOL TARTRATE 50 MG TAB PO SCH ×2 (07:58→16:51)
[2016-06-08] MEDS: NON-FORMULARY MEDICATION 1 EA MIS (Tiotropium Bromide Monohydrate [Spiriva Respimat] 2 PUF IN SCH (08:40)
[2016-06-08] MEDS: FLUTICASONE/SALMETEROL 250/50 14 PUFF/17 GM INH INH SCH ×2 (08:40→19:56)
[2016-06-08] MEDS: IPRATROPIUM/ALBUTEROL 3 ML VIAL INH SCH ×3 (08:40→19:55)
[2016-06-08] MEDS: FUROSEMIDE 40 MG TAB PO SCH (08:55)
[2016-06-08] MEDS: SUCRALFATE 1 GM/10 ML 1 GM UD PO SCH ×3 (08:55→20:48)
[2016-06-08] MEDS: POLYETHYLENE GLYCOL 3350 17 GM PCKT PO SCH (08:55)
[2016-06-08] MEDS: DULoxetine HCL 30 MG CAP PO SCH (08:56)
[2016-06-08] MEDS: CARBAMAZEPINE 400 MG PO SCH ×2 (08:56→20:47)
[2016-06-08] MEDS: LORATADINE 10 MG TAB PO SCH (08:56)
[2016-06-08] MEDS: DILTIAZEM HCL 90 MG PO SCH ×2 (08:56→20:47)
[2016-06-08] MEDS: DUTASTERIDE 0.5 MG CAP PO SCH (08:57)
[2016-06-08] MEDS: TAMSULOSIN 0.4 MG CAP PO SCH (08:59)
[2016-06-08] MEDS: PANTOPRAZOLE SODIUM TAB 40 MG PO SCH (09:00)
[2016-06-08] MEDS ORDERED: predniSONE 10 MG TAB PO SCH (09:00)
[2016-06-08] MEDS: SODIUM CHLORIDE 0.9% (FLUSH) 10 ML SYG IV SCH ×2 (09:01→20:48)
[2016-06-08] MEDS ORDERED: BISACODYL SUPPOSITORY 10 MG PR ONE ×2 (09:26→11:05)
[2016-06-08] MEDS ORDERED: BISACODYL TAB 5 MG TAB PO ONE ×2 (09:27→11:05)
--- NOTE | 2016-06-08 11:24 | PN ---
DATE: 06/08/16 SUBJECTIVE: The patient is lying in the bed but admits to special interest in increasing his activity today. Moderate response to enemas yesterday which will be repeated and continued to observe for today. Abdomen is a little more tight and distended today compared to yesterday. Still with a hernia in the lower abdomen to the left of midline. Appetite is slightly improved. He admits to having had a colonoscopy in the past as well as swallowed a camera which has followed through his small bowel. He is scheduled to be seen by Dr. Tolentino this next Thursday in the [place] office. OBJECTIVE: Afebrile, pulse 58, blood pressure 143/66, pulse oximetry 99% on 2 liters and will attempt to decrease some of his oxygen supplementation. He is fully alert. The patient is seen along with Dr. Roy, General Surgery, for evaluation. Appetite is slightly improved but abdomen is still somewhat tender upon palpation. He does have faint bowel tone activities. No significant tympani. Moderate results to soap suds enema yesterday. Heart and lungs otherwise unchanged. Hernia is still present in the lower abdomen. His weight is down a little bit. LABORATORY: Hemoglobin has dropped from 9.3 from a high of 10 down to 8.7 to be reevaluated tomorrow. Chemistry does show his BUN is still elevated at 51 while creatinine is down to 1.66. Sodium 134, osmolality normal at 282, calcium 7.5 while albumin is 3.9. Magnesium is high at 3.7. Third stool hemoccult is positive. Chest x-ray yesterday showed no acute findings and abdominal film yesterday showed colonic distention with fecal impaction. ASSESSMENT: 1. History of congestive heart failure with an acute exacerbation. Apparent diastolic etiology with BNP elevated at 529 on admission with an ejection fraction 67% on echocardiogram performed by Dr. Bragg 12/2015. 2. Significant anemia requiring 2 units of packed red blood cells with persistence with a hypochromic normocytic presentation. 3. Gastrointestinal hemorrhage with repeat hemoccults positive. 4. Large reducible hernia containing part of the colon without signs of strangulation though somewhat tender today compared to yesterday. 5. Significant fecal impaction with constipation contributing to some of his symptoms. 6. History of chronic obstructive pulmonary disease with an acute exacerbation showing slight improvement. 7. Chronic kidney disease stage III with a baseline creatinine of 1.4. 8. History of iron deficiency anemia. 9. History of neuropathy. 10. History of gastroesophageal reflux disease. PLAN: Will repeat some Dulcolax suppository and if no results consider soap suds enema. Try Dulcolax p.o. for peristaltic stimulation. To discuss the case with Dr. Tolentino, GI clinic, tomorrow. The patient to have an appointment with the GI clinic on Thursday to discuss the swallowed camera small bowel follow-through. Will decrease corticosteroid administration. Start the patient on proton pump inhibitors. Repeat lab in the morning to check on anemia state with continued GI bleed and to discuss with Dr. Tolentino. #[id number] [facility]
[2016-06-08] MEDS: SIMVASTATIN 20 MG TAB PO SCH (20:47)
[2016-06-08] MEDS: MAGNESIUM HYDROXIDE 30 ML UD PO SCH (20:48)
--- NOTE | 2016-06-09 00:52 | RAD ---
CLINICAL HISTORY:Anemia, Abdominal distention. :1930. Sex:Male. TECHNIQUE: Supine and upright views of the abdomen. There is no intraperitoneal free air. There is a dilated loop of bowel within the mid abdomen measuring up to 7.7 cm. There are some nonspecific air-fluid levels along the right side of the abdomen. There are no abnormal calcifications. There is no acute fracture. IMPRESSION: Nonspecific bowel gas pattern with dilated loops of bowel and air-fluid levels. This could be due to a small bowel obstruction. Electronically signed by: Tavares Alarcon MD 06/06/2016 7:00 AM SENIOR MOBILE SOLUTIONS ARCHITECT
--- NOTE | 2016-06-09 00:53 | RAD ---
EXAM: Two view chest. INDICATION: Chest pain. COMPARISON: Chest x-ray: 06/04/2016. FINDINGS: Cardiac silhouette: Unremarkable. Vicky: Unremarkable. Lobar consolidation: None. Pleural effusion: None. Pneumothorax: None. Other: Median sternotomy wires are noted Bones: Unremarkable. Other: None. IMPRESSION: 1. No acute cardiopulmonary process. Electronically signed by: Tavares Alarcon MD 06/06/2016 7:01 AM STORAGE FACILITY HOUSEKEEPER
--- NOTE | 2016-06-09 00:57 | RAD ---
EXAM: Two view chest. INDICATION: Chest pain. COMPARISON: Chest x-ray: 06/06/2016. FINDINGS: Cardiac silhouette: Unremarkable. Vicky: Unremarkable. Lobar consolidation: None. Pleural effusion: None. Pneumothorax: None. Other: Median sternotomy wires are noted Bones: Unremarkable. Other: None. IMPRESSION: 1. No acute cardiopulmonary process. Electronically signed by: Tavares Alarcon MD 06/07/2016 6:40 AM FARM EQUIPMENT ENGINEER
[2016-06-09] MEDS ORDERED: cefTRIAXone SODIUM 1 GM VIAL ONE ×2 (01:19→12:47)
[2016-06-09] MEDS ORDERED: SODIUM CHL 0.9% 50ML MIN-BAG+ 50 ML IVPB ONE ×2 (01:19→12:47)
[2016-06-09] MEDS: SODIUM CHLORIDE 0.9% (FLUSH) 10 ML SYG IV PRN (02:29)
[2016-06-09] MEDS: cefTRIAXone SODIUM 1 GM in SODIUM CHL 0.9% 50ML MIN-BAG+ 50 ML IVPB SCH ×2 (02:30→15:00)
[2016-06-09] MEDS: PANTOPRAZOLE SODIUM TAB 40 MG PO SCH (06:11)
--- NOTE | 2016-06-09 07:14 | RAD ---
CLINICAL HISTORY:fecal impaction. :1930. Sex:Male. TECHNIQUE: Supine and upright views of the abdomen. There are some dilated loops of bowel with some nonspecific air-fluid levels.. There is no mass. There is no free air. There is no opaque calculus. Skeletal structures are unremarkable. IMPRESSION: Dilated loops of bowel with nonspecific air-fluid levels. This may be due to an obstruction. Electronically signed by: Tavares Alarcon MD 06/09/2016 7:12 AM COMPUTED TOMOGRAPHY TECHNICIAN
[2016-06-09] MEDS: METOPROLOL TARTRATE 50 MG TAB PO SCH ×2 (07:41→16:58)
[2016-06-09] MEDS: FLUTICASONE/SALMETEROL 250/50 14 PUFF/17 GM INH INH SCH ×2 (07:50→21:14)
[2016-06-09] MEDS: IPRATROPIUM/ALBUTEROL 3 ML VIAL INH SCH ×4 (07:50→21:14)
[2016-06-09] MEDS: NON-FORMULARY MEDICATION 1 EA MIS (Tiotropium Bromide Monohydrate [Spiriva Respimat] 2 PUF IN SCH (07:50)
[2016-06-09] MEDS: FUROSEMIDE 40 MG TAB PO SCH (09:07)
[2016-06-09] MEDS: LORATADINE 10 MG TAB PO SCH (09:07)
[2016-06-09] MEDS: DUTASTERIDE 0.5 MG CAP PO SCH (09:07)
[2016-06-09] MEDS: predniSONE 20 MG TAB PO SCH (09:08)
[2016-06-09] MEDS: DULoxetine HCL 30 MG CAP PO SCH (09:08)
[2016-06-09] MEDS: CARBAMAZEPINE 400 MG PO SCH ×2 (09:08→20:38)
[2016-06-09] MEDS: TAMSULOSIN 0.4 MG CAP PO SCH (09:08)
[2016-06-09] MEDS: DILTIAZEM HCL 90 MG PO SCH ×2 (09:09→20:38)
[2016-06-09] MEDS: SODIUM CHLORIDE 0.9% (FLUSH) 10 ML SYG IV SCH ×2 (09:10→20:37)
[2016-06-09] MEDS: POLYETHYLENE GLYCOL 3350 17 GM PCKT PO SCH (09:10)
[2016-06-09] MEDS: SUCRALFATE 1 GM/10 ML 1 GM UD PO SCH ×3 (09:10→20:39)
[2016-06-09] MEDS ORDERED: MAGNESIUM HYDROXIDE 30 ML UD PO ONE (13:00)
--- NOTE | 2016-06-09 14:48 | PN ---
DATE: 06/09/16 SUBJECTIVE: The patient is able to sit up and even encouraged to increase his activity to help with the bowel ileus and elimination problems. He is awake, alert, and communicative. He is a little hungrier today than yesterday. His abdomen is still distended, but seems to be less tender today compared to yesterday. OBJECTIVE: VITAL SIGNS: Afebrile. Pulse 54. Blood pressure 146/60. Pulse oximetry 96% on room air. Weight 97.5 kg. LUNGS: Clear. HEART: Regular. ABDOMEN: Bowel tone activity is present though slightly decreased compared to yesterday. Increased tympany especially noted across the upper abdomen, possibly with gas in the transverse colon. Less tender today compared to yesterday. X-rays of the abdomen show gas distention with some stool present, maybe less stool compared to yesterday. ASSESSMENT: 1. Significant anemia on presentation and admission, requiring 2 units of packed red blood cells with persistence with a normocytic/hypochromic presentation. 2. Chronic gastrointestinal hemorrhage with repeat Hemoccults positive. 3. History of congestive heart failure with an acute exacerbation showing stabilization and an apparent diastolic etiology with a BNP elevated at 529 on admission with an ejection fraction of 67% on echocardiogram performed by Dr. Bragg in December 2015. 4. Large reducible ventral hernia containing a portion of the sigmoid colon with no evidence at this point of clinical strangulation or incarceration. 5. Significant fecal impaction with constipation and associated ileus with treatment adjustments to continue. 6. History of chronic obstructive pulmonary disease with an acute exacerbation, showing improvement. 7. Chronic renal disease, stage 3, baseline creatinine of 1.4, slowing improving with fluid hydration. 8. History of iron deficiency anemia. 9. History of neuropathy. 10. History of gastroesophageal reflux disease. PLAN: Dr. Tolentino, GI specialist in [place], was contacted and he was able to review his recent treatment of the patient. This includes an upper endoscopy two months ago and a lower endoscopy about three weeks ago, all of which failed to show a source of bleeding. A couple of weeks ago, he did have a PillCam that he swallowed to evaluate the small bowel and no pathology was evident from that study. He was notified of the persistence of the stool guaiac -positive results and the fecal impaction with hernia and will assist with ongoing followup. He will call the patient's home in a couple of days to reschedule another appointment. Dr. Holland is to assist with ongoing clinical followup as well here. Increase laxatives today and observe. We will advance to a full liquid and observe response with increased activity level. Reevaluate in the morning and home if stable. #[id number] [facility]
[2016-06-09] MEDS: SIMVASTATIN 20 MG TAB PO SCH (20:38)
[2016-06-09] MEDS: MAGNESIUM HYDROXIDE 30 ML UD PO SCH (20:38)
[2016-06-10] MEDS ORDERED: cefTRIAXone SODIUM 1 GM VIAL ONE ×2 (00:47→15:54)
[2016-06-10] MEDS ORDERED: SODIUM CHL 0.9% 50ML MIN-BAG+ 50 ML IVPB ONE ×2 (00:47→15:53)
[2016-06-10] MEDS: SODIUM CHLORIDE 0.9% (FLUSH) 10 ML SYG IV PRN (02:42)
[2016-06-10] MEDS: cefTRIAXone SODIUM 1 GM in SODIUM CHL 0.9% 50ML MIN-BAG+ 50 ML IVPB SCH ×2 (02:43→16:03)
[2016-06-10] MEDS: PANTOPRAZOLE SODIUM TAB 40 MG PO SCH (06:00)
[2016-06-10] MEDS: METOPROLOL TARTRATE 50 MG TAB PO SCH ×2 (08:00→17:03)
[2016-06-10] MEDS: TAMSULOSIN 0.4 MG CAP PO SCH (09:08)
[2016-06-10] MEDS: LORATADINE 10 MG TAB PO SCH (09:08)
[2016-06-10] MEDS: DUTASTERIDE 0.5 MG CAP PO SCH (09:08)
[2016-06-10] MEDS: predniSONE 20 MG TAB PO SCH (09:08)
[2016-06-10] MEDS: DULoxetine HCL 30 MG CAP PO SCH (09:08)
[2016-06-10] MEDS: FUROSEMIDE 40 MG TAB PO SCH (09:08)
[2016-06-10] MEDS: CARBAMAZEPINE 400 MG PO SCH ×2 (09:09→20:53)
[2016-06-10] MEDS: POLYETHYLENE GLYCOL 3350 17 GM PCKT PO SCH (09:09)
[2016-06-10] MEDS: DILTIAZEM HCL 90 MG PO SCH ×2 (09:09→20:54)
[2016-06-10] MEDS: SODIUM CHLORIDE 0.9% (FLUSH) 10 ML SYG IV SCH ×2 (09:11→20:55)
[2016-06-10] MEDS: SUCRALFATE 1 GM/10 ML 1 GM UD PO SCH ×3 (09:11→20:54)
[2016-06-10] MEDS: IPRATROPIUM/ALBUTEROL 3 ML VIAL INH SCH ×4 (09:55→21:23)
[2016-06-10] MEDS: NON-FORMULARY MEDICATION 1 EA MIS (Tiotropium Bromide Monohydrate [Spiriva Respimat] 2 PUF IN SCH (09:55)
[2016-06-10] MEDS: FLUTICASONE/SALMETEROL 250/50 14 PUFF/17 GM INH INH SCH ×2 (09:55→21:24)
[2016-06-10] MEDS ORDERED: BISACODYL TAB 5 MG TAB PO ONE ×2 (10:38→16:00)
[2016-06-10] MEDS ORDERED: POLYETHYLENE GLYCOL 3350 17 GM PCKT PO ONE (10:38)
--- NOTE | 2016-06-10 11:15 | PN ---
DATE: 06/10/16 SUBJECTIVE: The patient is resting today but has increasing abdominal distention. He has had a large abdomen for a number of years. Unfortunately he has had some dehiscence of a ventral hernia after hernia repair in the past which has resulted in a ventral hernia with a small portion of the sigmoid colon within it. At this time, there is no nausea or vomiting. Appetite is fair. Still no definitive bowel movement in the last day and will work on assisting that bowel movement today after the patient was seen by Dr. Roy. He has suggested the orders as listed with increased Dulcolax and an enema as needed in an effort to help open up and get rid of some gas and stools to make sure that we are not dealing with an early obstructive phenomenon. OBJECTIVE: Afebrile, pulse 51, blood pressure 134/64, pulse oximetry 96% on room air. No lab today. ASSESSMENT: 1. Significant anemia requiring 2 units of packed red blood cells chronic in nature with normocytic hypochromic presentation. History of iron deficiency state receiving parenteral iron in the past and will require further close followup. 2. Chronic gastrointestinal hemorrhage with repeat hemoccults positive with no known source of the bleeding after colonoscopy pill camera sweep of the small bowel as well as upper endoscopy a couple of months ago. 3. History of congestive heart failure with a recent acute exacerbation improving with stabilization with diastolic etiology. 4. Large reducible ventral hernia containing a portion of the sigmoid colon with no evidence of clinical strangulation or incarceration yet with an increased abdominal girth and pressure has to be observed with surgical followup necessary for at least 1 more day before home. 5. Significant fecal impaction with constipation and ileus with treatment to continue. 6. History of chronic obstructive pulmonary disease with acute exacerbation improved. 7. Chronic renal disease stage III with baseline creatinine of 1.4. 8. History of iron deficiency anemia. 9. History of neuropathy. 10. History of gastroesophageal reflux disease. PLAN: Dr. Roy has seen the patient and requests Dulcolax pills as well as an extra dose of MiraLAX today and if no results by 6:00 PM today, will try a little Fleet's enema for stimulation effect for increased passage of gas and stool. Reevaluate in the morning and consider transfer back to [place] at that time after surgical clearance with continued treatment. #[id number] [facility]
[2016-06-10] MEDS ORDERED: SODIUM PHOS/BIPHOS ENEMA ADULT 133 ML BTTL PR ONE (18:00)
[2016-06-10] MEDS: IV SET AND CAP CHANGE INJ INJ SCH (20:53)
[2016-06-10] MEDS: SIMVASTATIN 20 MG TAB PO SCH (20:53)
[2016-06-10] MEDS: MAGNESIUM HYDROXIDE 30 ML UD PO SCH (21:06)
[2016-06-11] MEDS ORDERED: cefTRIAXone SODIUM 1 GM VIAL ONE ×2 (02:27→14:14)
[2016-06-11] MEDS ORDERED: SODIUM CHL 0.9% 50ML MIN-BAG+ 50 ML IVPB ONE ×2 (02:27→14:14)
[2016-06-11] MEDS: SODIUM CHLORIDE 0.9% (FLUSH) 10 ML SYG IV PRN (02:31)
[2016-06-11] MEDS: cefTRIAXone SODIUM 1 GM in SODIUM CHL 0.9% 50ML MIN-BAG+ 50 ML IVPB SCH ×2 (02:32→15:09)
[2016-06-11] MEDS: PANTOPRAZOLE SODIUM TAB 40 MG PO SCH (06:12)
[2016-06-11] MEDS: METOPROLOL TARTRATE 50 MG TAB PO SCH ×2 (07:48→17:50)
[2016-06-11] MEDS: FLUTICASONE/SALMETEROL 250/50 14 PUFF/17 GM INH INH SCH ×3 (08:35→21:00)
[2016-06-11] MEDS: NON-FORMULARY MEDICATION 1 EA MIS (Tiotropium Bromide Monohydrate [Spiriva Respimat] 2 PUF IN SCH ×2 (08:35)
[2016-06-11] MEDS: IPRATROPIUM/ALBUTEROL 3 ML VIAL INH SCH ×5 (08:35→21:00)
[2016-06-11] MEDS: DUTASTERIDE 0.5 MG CAP PO SCH (11:10)
[2016-06-11] MEDS: DILTIAZEM HCL 90 MG PO SCH ×2 (11:12→21:45)
[2016-06-11] MEDS: LORATADINE 10 MG TAB PO SCH (11:12)
[2016-06-11] MEDS: CARBAMAZEPINE 400 MG PO SCH ×2 (11:12→21:45)
[2016-06-11] MEDS: DULoxetine HCL 30 MG CAP PO SCH (11:12)
[2016-06-11] MEDS: SUCRALFATE 1 GM/10 ML 1 GM UD PO SCH ×3 (11:12→21:45)
[2016-06-11] MEDS: FUROSEMIDE 40 MG TAB PO SCH (11:13)
[2016-06-11] MEDS: TAMSULOSIN 0.4 MG CAP PO SCH (11:13)
[2016-06-11] MEDS: POLYETHYLENE GLYCOL 3350 17 GM PCKT PO SCH (11:13)
[2016-06-11] MEDS: SODIUM CHLORIDE 0.9% (FLUSH) 10 ML SYG IV SCH ×2 (11:14→21:46)
[2016-06-11] MEDS: predniSONE 20 MG TAB PO SCH (11:14)
--- NOTE | 2016-06-11 12:42 | RAD ---
EXAM DESCRIPTION: Abdomen Flat Upright CLINICAL HISTORY: 86 years Male, n/v COMPARISON: June 09, 2016 FINDINGS: Again seen are postoperative changes in the mediastinum. There is no free subdiaphragmatic gas. Air-fluid levels in the upper abdomen are likely of colonic origin. There is a large amount of stool and gas scattered throughout the colon without dilated small bowel loop. Vascular calcifications are noted in the pelvis. There are degenerative changes in the lumbar spine at several levels. IMPRESSION: Large amount of colonic stool and gas with probable colonic air-fluid levels, but no pneumoperitoneum, small bowel obstruction or other acute intra-abdominal abnormality. Overall, no significant change from June 09, 2016. Electronically signed by: Cliff Enrique MD 06/11/2016 12:41 PM COMMERCIAL INSTRUCTOR SUPERVISOR
--- NOTE | 2016-06-11 12:45 | RAD ---
EXAM DESCRIPTION: Chest,2 Views CLINICAL HISTORY: CHF COMPARISON: June 07, 2016 FINDINGS: The right costophrenic angle is excluded from this exam. Again seen are postoperative changes in the mediastinum. There are mural calcifications of the aortic arch. The cardiomediastinal silhouette is unremarkable. There is no airspace consolidation. There is a possible tiny left-sided pleural effusion. No large right-sided effusion is seen. The central bronchovascular markings are slightly indistinct, and there is mild peribronchial cuffing bilaterally. There is no pneumothorax or acute fracture. IMPRESSION: Indistinct central bronchovascular markings with mild peribronchial cuffing suggestive of mild central pulmonary vascular congestion. Bronchitis could have a similar appearance. Possible tiny left-sided pleural effusion. Electronically signed by: Cliff Enrique MD 06/11/2016 12:44 PM FIRER RETORT
[2016-06-11] MEDS: MAGNESIUM HYDROXIDE 30 ML UD PO SCH (21:00)
[2016-06-11] MEDS: SIMVASTATIN 20 MG TAB PO SCH (21:45)
[2016-06-12] MEDS ORDERED: SODIUM CHL 0.9% 50ML MIN-BAG+ 0 ML IVPB ONE (02:34)
[2016-06-12] MEDS ORDERED: cefTRIAXone SODIUM 1 GM VIAL ONE ×2 (02:34→15:30)
[2016-06-12] MEDS: SODIUM CHLORIDE 0.9% (FLUSH) 10 ML SYG IV PRN (02:51)
[2016-06-12] MEDS: cefTRIAXone SODIUM 1 GM in SODIUM CHL 0.9% 50ML MIN-BAG+ 50 ML IVPB SCH ×2 (02:55→16:21)
[2016-06-12] MEDS: PANTOPRAZOLE SODIUM TAB 40 MG PO SCH (06:25)
[2016-06-12] MEDS: METOPROLOL TARTRATE 50 MG TAB PO SCH ×2 (06:26→16:28)
[2016-06-12] MEDS: IPRATROPIUM/ALBUTEROL 3 ML VIAL INH SCH ×3 (07:57→17:03)
[2016-06-12] MEDS: NON-FORMULARY MEDICATION 1 EA MIS (Tiotropium Bromide Monohydrate [Spiriva Respimat] 2 PUF IN SCH (08:30)
[2016-06-12] MEDS: FLUTICASONE/SALMETEROL 250/50 14 PUFF/17 GM INH INH SCH (08:30)
[2016-06-12] MEDS: SUCRALFATE 1 GM/10 ML 1 GM UD PO SCH ×2 (09:05→16:00)
[2016-06-12] MEDS: TAMSULOSIN 0.4 MG CAP PO SCH (09:05)
[2016-06-12] MEDS: FUROSEMIDE 40 MG TAB PO SCH (09:05)
[2016-06-12] MEDS: DULoxetine HCL 30 MG CAP PO SCH (09:06)
[2016-06-12] MEDS: POLYETHYLENE GLYCOL 3350 17 GM PCKT PO SCH (09:06)
[2016-06-12] MEDS: LORATADINE 10 MG TAB PO SCH (09:06)
[2016-06-12] MEDS: SODIUM CHLORIDE 0.9% (FLUSH) 10 ML SYG IV SCH (09:06)
[2016-06-12] MEDS: predniSONE 20 MG TAB PO SCH (09:06)
[2016-06-12] MEDS: DUTASTERIDE 0.5 MG CAP PO SCH (09:08)
[2016-06-12] MEDS: DILTIAZEM HCL 90 MG PO SCH (09:09)
[2016-06-12] MEDS: CARBAMAZEPINE 400 MG PO SCH (09:09)
--- NOTE | 2016-06-12 10:16 | PN ---
SUPERVISING PHYSICIAN: Samir Stahl MD DATE: 06/11/16 SUBJECTIVE: The patient was lying in bed. He is somewhat lethargic. He complains of nausea as well as shortness of breath. His oxygen saturation dropped to the low 80s and was placed on oxygen. He also vomited several times and he complained of abdominal pain. Dr. Roy also evaluated the patient. Lab was done and chest x-ray and abdominal x-ray were obtained. The x-rays were slightly delayed due to the patient's continued complaints of nausea. He received some Zofran and his x-rays were done about noon. While he was going to x-ray, he was incontinent of stool in the wheelchair. He returned to his room. He slept some in the early afternoon and at about 2:30, he was much more alert and awake. He recognized me and his daughter. He had no complaints at that time of shortness of breath, abdominal pain, nausea or vomiting. OBJECTIVE: VITAL SIGNS: Afebrile. Pulse in the 50s. Blood pressure 157/60. Respiratory rate 20. O2 saturations about 11:30 this morning dropped to the low 80s. Oxygen was placed on the patient and it came up to 92%. LUNGS: He has a few scattered crackles throughout as well as some rhonchi. CARDIAC: Regular rate and rhythm. ABDOMEN: Distended, but soft, nontender. Bowel sounds are positive. NEUROLOGIC: Awake, alert and oriented times three. LABORATORY: Hemoglobin 9.3, hematocrit 29.8. D-dimer less than 200. Creatinine kinase was 371, CK 8.0, troponin negative. BNP 723. Chest x-ray showed indistinct central bronchovascular markings with mild peribronchial cupping suggestive of mild central pulmonary vascular congestion with consideration of bronchitis and a possible tiny left sided pleural effusion. His abdominal x-ray showed a large amount of colonic stool and gas with probable colonic air-fluid levels, but no pneumoperitoneum, small bowel obstruction or other acute intraarticular abnormality. All other labs and films have been reviewed via the EMR. ASSESSMENT: 1. Significant anemia requiring 2 units of packed red blood cells, chronic in nature with normocytic/hypochromic presentation. History of iron deficiency state. 2. Chronic gastrointestinal hemorrhage with repeat Hemoccult positive stools with no known source of the bleeding after colonoscopy pill camera sweep of the small bowel as well as upper endoscopy several months ago. 3. History of congestive heart failure with a recent acute exacerbation with stabilization with diastolic etiology. 4. Large reducible ventral hernia containing a portion of the sigmoid colon with no evidence of clinical strangulation or incarceration. 5. Significant fecal impaction with constipation and ileus with treatment to continue, being followed by Dr. Roy. 6. History of chronic obstructive pulmonary disease. 7. Chronic renal disease stage III with baseline creatinine of 1.4. 8. History of iron deficiency anemia. 9. Neuropathy. 10. Gastroesophageal reflux disease. PLAN: The patient has improved greatly from this morning, but we will continue to monitor him closely. We will most likely need to advance his diet. I attempted to call Dr. Tolentino's office to see if it would be beneficial for the patient to be started on Amitiza and I will try to followup with that tomorrow. I will get a CBC, BMP and magnesium in the morning. We will continue to encourage good pulmonary toilet. I have discontinued his Milk of Magnesia. I have also ordered a physical therapy evaluation tomorrow due to his lengthy hospital stay and multiple problems while being hospitalized, he may benefit from strengthening and conditioning in a Swing Bed admission. He will also need a followup with his charge entry clerk as well as his strip cleaner in case hernia repair is needed as at this point is a very high risk and would most likely need some clearance from those specialists. We will continue to encourage good pulmonary toilet. He may need an additional dose of furosemide at some point, but we will continue to watch him as he improved greatly this afternoon. Dr. Stahl is the collaborating physician and available for consultation. #[id number] [facility]
[2016-06-12 10:55] VITALS: TEMP 97.4
[2016-06-12] MEDS ORDERED: SODIUM CHL 0.9% 50ML MIN-BAG+ 50 ML IVPB ONE (15:30)
[2016-06-12 16:29] VITALS: BP 171/74; O2SAT 97
--- NOTE | 2016-06-19 08:21 | DS ---
SUPERVISING PHYSICIAN: Samir Stahl MD DISCHARGE DIAGNOSIS: 1. Significant anemia requiring 2 units of packed red blood cells, chronic in nature with normocytic/hypochromic presentation. History of iron deficiency state. 2. Chronic gastrointestinal hemorrhage with repeat occult positive blood stools with no known source of the bleeding after colonoscopy, PillCam sweep of small bowel as well as an esophagogastroduodenoscopy several months ago per Dr. Tolentino. 3. History of congestive heart failure with a recent acute exacerbation with stabilization with diastolic in etiology. 4. Large reducible ventral hernia containing a portion of the sigmoid colon with no evidence of clinical strangulation or incarceration. 5. Significant fecal impaction with constipation and ileus with treatment to continue, being followed by Dr. Roy. 6. History of chronic obstructive pulmonary disease. 7. History of chronic renal disease, stage 3 with baseline creatinine of 1.4. 8. History of iron deficiency anemia. 9. Neuropathy. 10. Gastroesophageal reflux disease. HISTORY OF PRESENT ILLNESS: This is an 86-year-old male patient who lives at [facility]. He is a patient of Dr. Mccord. On day of admission, he had progressive shortness of breath over the last week and a half, but it had progressed over the last 2 days to the point that he had to come to the Emergency Room. He also had a 5 to 7 pound weight gain over the last week or so. He does have a history of congestive heart failure as well as chronic obstructive pulmonary disease. Initially, he thought it was his chronic obstructive pulmonary disease that was causing the problem, although he felt like he had "fluid on his stomach." He also has a history of chronic anemia that is associated with iron deficiency anemia. Dr. Tolentino did an endoscopy as well as swallow pill study and there was no evidence of an acute bleed, although in the hospital his Hemoccults were positive. He also had had several units of blood and some iron over the last 2 to 3 months. In the Emergency Room , his oxygen saturations were 93% but his BNP was 529. He was found to have a hemoglobin of 7.4 and hematocrit 23.7. BUN 34, creatinine 1.7. He has a baseline creatinine of about 1.4 to 1.7. He was admitted to the hospital. HOSPITAL COURSE: He was given 2 units of packed red blood cells. He was also given Lasix and his congestive mechanism improved. During his stay, he did have complaint of abdominal pain and his abdominopelvic CT showed an umbilical hernia containing the anterior wall of the mid sigmoid colon which is mildly constricted and they recommended surgery consultation. Dr. Roy saw the patient. The patient was also severely constipated, so after 2 to 3 days of aggressive clean out, he finally was no longer constipated and Dr. Ryo felt that the hernia was at least stable at this point. He is stable enough now to be discharged back to [facility]. DISCHARGE PLAN: The patient will be discharged back to [facility]. He will be sent home on MiraLAX. I tried multiple times to call Dr. Tolentino to see if it would be advisable to start him on some Amitiza, but I did not get a hold of him. Dr. Roy recommended that he have at least clearance from Dr. Combs, his lye peel operator, and a pulmonary consult in regards to having the hernia repaired. He does have extensive comorbidities and it may not be advisable, but there could be an issue that he would need to have that hernia repaired at some point in the next few months. He has a followup appointment with Dr. Holland on 06/19/16. He was to resume a bland diet and to followup with Dr. Holland or return to the Emergency Room with any further complications. DISCHARGE MEDICATIONS: 1. Aspirin. 2. Simvastatin. 3. Advair. 4. Diltiazem. 5. Avodart. 6. DuoNeb. 7. Cymbalta. 8. Nystatin. 9. Pantoprazole. 10. Metoprolol tartrate. 11. Hydralazine. 12. Carafate. 13. Furosemide. 14. MiraLAX. 15. Glucosamine. 16. Tamsulosin. 17. Tegretol. 18. Spiriva. 19. Multivitamins. 20. Fexofenadine. 21. Acetaminophen. 22. Milk of Magnesia. 23. Prednisone taper. #[id number] [facility]
== END 2016-06-12 17:23 | DRG 291 ==
LOC: ER 15:11 → MS 18:06
PROVIDERS: ADMIT Nurse Practitioner Acute Care; ATTEND Nurse Practitioner Acute Care
PROC: 30233N1 Transfusion of Nonautologous Red Blood Cells into Peripheral Vein, Percutaneous Approach (ICD-10-PCS; principal; 2016-06-04)
DX: I13.0 Hypertensive heart and chronic kidney disease with heart failure and stage 1 through stage 4 chronic kidney disease, or unspecified chronic kidney disease (principal); I50.33 Acute on chronic diastolic (congestive) heart failure; J44.1 Chronic obstructive pulmonary disease with (acute) exacerbation; K56.7 Ileus, unspecified; D50.9 Iron deficiency anemia, unspecified; I25.10 Atherosclerotic heart disease of native coronary artery without angina pectoris; E78.00 Pure hypercholesterolemia, unspecified; D63.1 Anemia in chronic kidney disease; N18.3 Chronic kidney disease, stage 3 (moderate); K21.9 Gastro-esophageal reflux disease without esophagitis; E78.5 Hyperlipidemia, unspecified; G60.3 Idiopathic progressive neuropathy; K43.9 Ventral hernia without obstruction or gangrene; K59.00 Constipation, unspecified; R19.5 Other fecal abnormalities; Z87.891 Personal history of nicotine dependence; Z95.1 Presence of aortocoronary bypass graft; Z79.899 Other long term (current) drug therapy; Z79.82 Long term (current) use of aspirin; Z79.51 Long term (current) use of inhaled steroids; Z98.890 Other specified postprocedural states

== ENCOUNTER → 2016-07-10 | Outpatient (CLI) | payer MEDICARE, BC, OTHER | LOC: YCHH 10:50 | PROVIDERS: ATTEND Family Medicine | DX: I50.33 Acute on chronic diastolic (congestive) heart failure (principal); R06.02 Shortness of breath; N18.3 Chronic kidney disease, stage 3 (moderate); R60.9 Edema, unspecified; D64.9 Anemia, unspecified ==

== ENCOUNTER → 2016-08-05 | Outpatient (CLI) | payer MEDICARE, BC, OTHER | LOC: GMAB 16:43 | PROVIDERS: ATTEND Family Medicine | DX: L02.411 Cutaneous abscess of right axilla (principal) ==

== ENCOUNTER → 2016-08-21 | Outpatient (CLI) | payer MEDICARE, BC, OTHER | LOC: YCHH 10:07 | PROVIDERS: ATTEND Family Medicine | DX: E11.9 Type 2 diabetes mellitus without complications (principal); D50.9 Iron deficiency anemia, unspecified ==

== ENCOUNTER 2016-10-14 12:48 | Emergency (ER) | payer MEDICARE, BC, OTHER ==
--- NOTE | 2016-10-14 13:00 | ED.PDOC ---
History of Present Illness - General Chief Complaint: Skin/Abrasion/Tear Stated Complaint: skin abscess Time Seen by Provider: 10/14/16 12:54 Source: patient, RN notes reviewed, Vital Signs reviewed Exam Limitations: no limitations - History of Present Illness Initial Comments: Ad Montaño 86 y/o male stated 3 days ago had tender soft tissue swelling developed on his right axillary area which got worse. Timing/Duration: other - 3 days ago Severity: moderate Location: torso Improving Factors: nothing Worsening Factors: nothing Associated Symptoms: change in skin texture Allergies/Adverse Reactions: Allergies Clonidine [From Catapres-TTS] Allergy (Verified 06/04/16 15:26) Rash Lisinopril Allergy (Verified 06/04/16 15:26) Anaphylaxis Home Medications: Ambulatory Orders Aspirin [Aspirin EC] 81 mg PO DAILY 01/31/14 Simvastatin 20 mg PO BEDTIME 11/25/14 DULoxetine HCL [Cymbalta] 60 mg PO DAILY 06/14/15 Diltiazem HCl [Diltiazem HCl ER] 90 mg PO BID 06/14/15 Dutasteride [Avodart] 0.5 mg PO DAILY 06/14/15 Fluticasone/Salmeterol 250/50 [Advair 250/50 Diskus] 1 puff INH BID 06/14/15 Ipratropium/Albuterol [Duoneb] 3 ml NEB QID 06/14/15 Nystatin Powder 15 gm TOP DAILY PRN 06/15/15 Furosemide 80 mg PO DAILY 09/05/15 Glucosamine Hydrochloride [Glucosamine] 500 mg PO DAILY #0 09/05/15 Metoprolol Tartrate 50 mg PO BID 09/05/15 Pantoprazole Sodium 40 mg PO DAILY 09/05/15 Polyethylene Glycol 3350 [Miralax] 17 gm PO DAILY 09/05/15 Sucralfate Suspension [Carafate Suspension] 1 gm PO TID 09/05/15 Tamsulosin HCl [Flomax] 0.4 mg PO DAILY 09/05/15 hydrALAZINE HCl [HydrALAzine HCl] 25 mg PO TID 09/05/15 Carbamazepine [Tegretol-Xr] 400 mg PO BID 12/07/15 Tiotropium [place] Monohydrate [Spiriva Respimat] 2 puff IN DAILY #0 12/07/15 Acetaminophen [Tylenol] 500 - 1,000 mg PO PRN PRN 06/04/16 Fexofenadine HCl 180 mg PO DAILY 06/04/16 Magnesium Hydroxide [Milk Of Magnesia] 30 ml PO WKLY PRN 06/04/16 Multiple Vitamins W/ Minerals [Centrum Silver] 1 tab PO DAILY 06/04/16 Polyethylene Glycol 3350 [Miralax] 17 gm PO DAILY #30 pckt 06/12/16 predniSONE 20 mg PO DAILY #9 tab 06/12/16 Clindamycin HCl 300 mg PO BID #30 cap 10/14/16 Review of Systems - Review of Systems Constitutional: States: no symptoms reported EENTM: States: no symptoms reported Respiratory: States: no symptoms reported Cardiology: States: no symptoms reported Gastrointestinal/Abdominal: States: no symptoms reported Genitourinary: States: no symptoms reported Musculoskeletal: States: no symptoms reported Neurological: States: see HPI Endocrine: States: no symptoms reported Hematologic/Lymphatic: States: no symptoms reported Past Medical History (General) - Patient Medical History Hx Seizures: No Hx Stroke: No Hx Dementia: No - BORDERLINE Hx Asthma: No Hx of COPD: Yes Hx Cardiac Disorders: Yes - CABG 2001 Hx Congestive Heart Failure: Yes Hx Pacemaker: No Hx Hypertension: Yes Hx Thyroid Disease: No Hx Diabetes: No Hx Gastroesophageal Reflux: Yes Hx Renal Disease: Yes Hx Cancer: No Hx of HIV: No Hx Hepatitis C: No Hx MRSA: No Surgical History: coronary bypass surgery, other - hernia repair - Vaccination History Hx Tetanus, Diphtheria Vaccination: Yes Hx Influenza Vaccination: Yes - 2015 Hx Pneumococcal Vaccination: Yes - 2011 - Social History Hx Tobacco Use: Yes - Quit 2004 Hx Chewing Tobacco Use: No Hx Alcohol Use: No Hx Substance Use: No Hx Substance Use Treatment: No Hx Depression: No Hx Physical Abuse: No Hx Emotional Abuse: No Hx Suspected Abuse: No - Activities of Daily Living Fdc/Assisted Living (if applicable):: [place] Grooming Ability: Independent Eating (Feeding) Ability: Independent Toileting Ability: Independent Family Medical History - Family History Mother Name: Edilia Cabrera Living Status: Age at (years of age): 79 Cause of : Pneumonia Hx Family Hypertension: Yes Hx Family Diabetes: Yes Physical Exam - Physical Exam General Appearance: Alert, Comfortable, No apparent distress Eyes, Ears, Nose, Throat Exam: PERRL/EOMI, normal ENT inspection, TMs normal Neck: non-tender, full range of motion, supple Cardiovascular/Chest: normal peripheral pulses, regular rate, rhythm, no edema, no gallop, no murmur Respiratory: chest non-tender, lungs clear, normal breath sounds Gastrointestinal/Abdominal: normal bowel sounds, non tender, soft Back Exam: normal inspection, no CVA tenderness Extremity: normal range of motion, non-tender, no pedal edema, no calf tenderness Neurologic: alert, normal mood/affect, oriented x 3 Skin Exam: warm/dry, normal color Skin Problem Location: torso - right axillary area Skin Character: abscess, erythema, tenderness Lymphatic: no adenopathy Procedures - Incision and Drainage #1 Site: right axillary area Procedure and Prep: sterile drapes applied, sterile dressings applied, gauze wick placed, irrigated, wound culture collected, pus drained Departure - Departure Clinical Impression: Abscess of skin or subcutaneous tissue Qualifiers: Site of cutaneous abscess of extremity: axilla Laterality: right Time of Disposition: 14:08 Disposition: Discharge to Home or Self Care Condition: Good Instructions: DI for Incision and Drainage of a Skin Abscess, DI for Skin Abscess Referrals: Cassius Holland MD [Primary Care Provider] - 1-2 Weeks Prescriptions: Clindamycin HCl 300 mg PO BID #30 cap Home Medications: Ambulatory Orders Aspirin [Aspirin EC] 81 mg PO DAILY 01/31/14 Simvastatin 20 mg PO BEDTIME 11/25/14 DULoxetine HCL [Cymbalta] 60 mg PO DAILY 06/14/15 Diltiazem HCl [Diltiazem HCl ER] 90 mg PO BID 06/14/15 Dutasteride [Avodart] 0.5 mg PO DAILY 06/14/15 Fluticasone/Salmeterol 250/50 [Advair 250/50 Diskus] 1 puff INH BID 06/14/15 Ipratropium/Albuterol [Duoneb] 3 ml NEB QID 06/14/15 Nystatin Powder 15 gm TOP DAILY PRN 06/15/15 Furosemide 80 mg PO DAILY 09/05/15 Glucosamine Hydrochloride [Glucosamine] 500 mg PO DAILY #0 09/05/15 Metoprolol Tartrate 50 mg PO BID 09/05/15 Pantoprazole Sodium 40 mg PO DAILY 09/05/15 Polyethylene Glycol 3350 [Miralax] 17 gm PO DAILY 09/05/15 Sucralfate Suspension [Carafate Suspension] 1 gm PO TID 09/05/15 Tamsulosin HCl [Flomax] 0.4 mg PO DAILY 09/05/15 hydrALAZINE HCl [HydrALAzine HCl] 25 mg PO TID 09/05/15 Carbamazepine [Tegretol-Xr] 400 mg PO BID 12/07/15 Tiotropium [place] Monohydrate [Spiriva Respimat] 2 puff IN DAILY #0 12/07/15 Acetaminophen [Tylenol] 500 - 1,000 mg PO PRN PRN 06/04/16 Fexofenadine HCl 180 mg PO DAILY 06/04/16 Magnesium Hydroxide [Milk Of Magnesia] 30 ml PO WKLY PRN 06/04/16 Multiple Vitamins W/ Minerals [Centrum Silver] 1 tab PO DAILY 06/04/16 Polyethylene Glycol 3350 [Miralax] 17 gm PO DAILY #30 pckt 06/12/16 predniSONE 20 mg PO DAILY #9 tab 06/12/16 Clindamycin HCl 300 mg PO BID #30 cap 10/14/16 Additional Instructions: Return to emergency room for removal of packing o10/15/2016
[2016-10-14] MEDS ORDERED: CLINDAMYCIN PHOSPHATE 150 MG/ML VIAL IM ONE (13:06)
[2016-10-14] MEDS ORDERED: CLINDAMYCIN HCL CAP 150 MG CAP PO ONE (13:07)
[2016-10-14 13:08] VITALS: TEMP 99.2; O2SAT 95
[2016-10-14] MEDS ORDERED: LIDOCAINE 1% 10 ML VIAL INJ ONE (13:22)
[2016-10-14] MEDS ORDERED: NEOMYCIN-BACITRACIN-POLYMYXIN 0.9 GM UD TOP ONE (13:34)
[2016-10-14 14:20] VITALS: BP 144/57
== END 2016-10-14 14:20 | disposition home or self-care (01) ==
LOC: ER 12:48
DX: L02.411 Cutaneous abscess of right axilla (principal); I11.0 Hypertensive heart disease with heart failure; I50.9 Heart failure, unspecified; K21.9 Gastro-esophageal reflux disease without esophagitis; N28.9 Disorder of kidney and ureter, unspecified; J44.9 Chronic obstructive pulmonary disease, unspecified; Z95.1 Presence of aortocoronary bypass graft; Z87.891 Personal history of nicotine dependence; Z79.899 Other long term (current) drug therapy; Z79.82 Long term (current) use of aspirin; Z88.8 Allergy status to other drugs, medicaments and biological substances
CPT/HCPCS: 87070; J3490

== ENCOUNTER → 2016-11-06 | Outpatient (CLI) | payer MEDICARE, BC, OTHER | END | disposition home or self-care (01) | LOC: YCHH 08:56 | PROVIDERS: ATTEND Family Medicine | DX: D50.9 Iron deficiency anemia, unspecified (principal); I50.33 Acute on chronic diastolic (congestive) heart failure; G50.9 Disorder of trigeminal nerve, unspecified ==

== ENCOUNTER → 2016-11-27 | Outpatient (CLI) | payer MEDICARE, BC, OTHER | END | disposition home or self-care (01) | LOC: GMAB 09:57 | PROVIDERS: ATTEND Family Medicine | DX: D64.9 Anemia, unspecified (principal); E11.9 Type 2 diabetes mellitus without complications ==

== ENCOUNTER → 2016-12-11 | Outpatient (CLI) | payer MEDICARE, BC, OTHER | END | disposition home or self-care (01) | LOC: YCHH 10:47 | PROVIDERS: ATTEND Family Medicine | DX: E78.5 Hyperlipidemia, unspecified (principal); R97.20 Elevated prostate specific antigen [PSA]; E11.9 Type 2 diabetes mellitus without complications; D50.9 Iron deficiency anemia, unspecified ==

== ENCOUNTER → 2017-02-03 | Outpatient (CLI) | payer MEDICARE, BC, OTHER | END | disposition home or self-care (01) | LOC: YCHH 08:53 | PROVIDERS: ATTEND Family Medicine | DX: D50.9 Iron deficiency anemia, unspecified (principal); E11.9 Type 2 diabetes mellitus without complications ==

== ENCOUNTER → 2017-02-19 | Outpatient (CLI) | payer MEDICARE, BC, OTHER | END | disposition home or self-care (01) | LOC: YCHH 08:35 | PROVIDERS: ATTEND Family Medicine | DX: D64.9 Anemia, unspecified (principal); D50.9 Iron deficiency anemia, unspecified; E11.9 Type 2 diabetes mellitus without complications ==

== ENCOUNTER 2017-02-28 10:38 | Emergency (ER) | payer MEDICARE, BC, OTHER ==
[2017-02-28 10:55] VITALS: BP 156/61; TEMP 98.4; O2SAT 98
--- NOTE | 2017-02-28 11:23 | ED.PDOC ---
History of Present Illness - General Chief Complaint: Lower Extremity Injury Stated Complaint: Left welch pain Time Seen by Provider: 02/28/17 11:16 Source: RN notes reviewed - History of Present Illness Initial Comments: 86 YEAR OLD FELL 8 DAYS AGO AND SUSTAINED SUPERFICIAL SKIN ABRASION BELOW BOTH KNEES HE HAS BEEN SEEN BY HIS PCP AND TREATED TODAY HIS DAUGHTER BROUGHT HIM HERE WITH CONCERNS OF A BLUISH LONG BRUISE ON THE WELCH OF THE LEFT TIBIA NO NEW FALL REPORTED PATIENT IS ABLE TO WEIGHT BEAR ON THAT LEG AND AMBULATE Improving Factors: immobilization, rest Worsening Factors: nothing Associated Symptoms: denies symptoms Allergies/Adverse Reactions: Allergies Clonidine [From Catapres-TTS] Allergy (Verified 02/28/17 10:54) Rash Lisinopril Allergy (Verified 02/28/17 10:54) Anaphylaxis Home Medications: Ambulatory Orders Aspirin [Aspirin EC] 81 mg PO DAILY 01/31/14 Simvastatin 20 mg PO BEDTIME 11/25/14 DULoxetine HCL [Cymbalta] 60 mg PO DAILY 06/14/15 Diltiazem HCl [Diltiazem HCl ER] 90 mg PO DAILY 06/14/15 Dutasteride [Avodart] 0.5 mg PO DAILY 06/14/15 Fluticasone/Salmeterol 250/50 [Advair 250/50 Diskus] 1 puff INH BID 06/14/15 Ipratropium/Albuterol [Duoneb] 3 ml NEB QID 06/14/15 Nystatin Powder 15 gm TOP BID PRN 06/15/15 Furosemide 60 mg PO DAILY 09/05/15 Pantoprazole Sodium 40 mg PO BID 09/05/15 Sucralfate Suspension [Carafate Suspension] 1 gm PO TID 09/05/15 Tamsulosin HCl [Flomax] 0.4 mg PO DAILY 09/05/15 hydrALAZINE HCl [HydrALAzine HCl] 25 mg PO TID 09/05/15 Tiotropium [place] Monohydrate [Spiriva Respimat] 2 puff IN DAILY #0 12/07/15 Acetaminophen [Tylenol] 500 - 1,000 mg PO PRN PRN 06/04/16 Fexofenadine HCl 100 mg PO DAILY 06/04/16 Magnesium Hydroxide [Milk Of Magnesia] 30 ml PO WKLY PRN 06/04/16 Multiple Vitamins W/ Minerals [Centrum Silver] 1 tab PO DAILY 06/04/16 Polyethylene Glycol 3350 [Miralax] 17 gm PO DAILY #30 pckt 06/12/16 Ferrous Gluconate [Iron 27] 500 mg PO DAILY 10/14/16 Review of Systems - Review of Systems Constitutional: States: no symptoms reported EENTM: States: no symptoms reported Respiratory: States: no symptoms reported Cardiology: States: no symptoms reported Gastrointestinal/Abdominal: States: no symptoms reported Genitourinary: States: no symptoms reported Musculoskeletal: States: no symptoms reported Skin: States: no symptoms reported Neurological: States: no symptoms reported Endocrine: States: no symptoms reported Hematologic/Lymphatic: States: no symptoms reported Past Medical History (General) - Patient Medical History Hx Seizures: No Hx Stroke: No Hx Dementia: No - BORDERLINE Hx Asthma: No Hx of COPD: Yes Hx Cardiac Disorders: Yes - hypercholesterolemia Hx Congestive Heart Failure: Yes Hx Pacemaker: No Hx Hypertension: Yes Hx Thyroid Disease: No Hx Diabetes: No Hx Gastroesophageal Reflux: Yes Hx Renal Disease: Yes Hx Cancer: No Hx of HIV: No Hx Hepatitis C: No Hx MRSA: No MRSA Source:: Wound - Vaccination History Hx Tetanus, Diphtheria Vaccination: Yes Hx Influenza Vaccination: Yes - 2016 Hx Pneumococcal Vaccination: Yes - 2011 - Social History Hx Tobacco Use: Yes - Quit 2004 Hx Chewing Tobacco Use: No Hx Alcohol Use: No Hx Substance Use: No Hx Substance Use Treatment: No Hx Depression: No Hx Physical Abuse: No Hx Emotional Abuse: No Hx Suspected Abuse: No Family Medical History - Family History Mother Name: Edilia Cabrera Living Status: Age at (years of age): 79 Cause of : Pneumonia Hx Family Hypertension: Yes Hx Family Diabetes: Yes Physical Exam - Physical Exam General Appearance: Alert, Comfortable Eye Exam: bilateral normal Ears, Nose, Throat: hearing grossly normal, normal ENT inspection, normal pharynx Neck: non-tender, full range of motion, supple, normal inspection Respiratory: chest non-tender, lungs clear, normal breath sounds, no respiratory distress, no accessory muscle use, respiratory distress Cardiovascular/Chest: normal peripheral pulses, regular rate, rhythm, no edema, no gallop, no JVD, no murmur Gastrointestinal/Abdominal: normal bowel sounds, non tender, soft, no organomegaly Extremity: normal range of motion, non-tender - HE HAS BILATERAL SUPERFICIAL SKIN ABRASIONS BELOW BOTH KNESS THERE IS BRUISING NOTED ON THE LEFT LEG THAT APPEARS OLD Neurologic: alert, normal mood/affect, oriented x 3 Skin Exam: warm/dry Departure - Departure Clinical Impression: Contusion Disposition: Discharge to Home or Self Care Departure Forms: ED Discharge - Pt. Copy, Patient Portal Self Enrollment Activity: ambulate only with walker - FOLLOW UP WITH YOUR PCP Referrals: Cassius Holland MD [Primary Care Provider] - 1-2 Weeks Home Medications: Ambulatory Orders Aspirin [Aspirin EC] 81 mg PO DAILY 01/31/14 Simvastatin 20 mg PO BEDTIME 11/25/14 DULoxetine HCL [Cymbalta] 60 mg PO DAILY 06/14/15 Diltiazem HCl [Diltiazem HCl ER] 90 mg PO DAILY 06/14/15 Dutasteride [Avodart] 0.5 mg PO DAILY 06/14/15 Fluticasone/Salmeterol 250/50 [Advair 250/50 Diskus] 1 puff INH BID 06/14/15 Ipratropium/Albuterol [Duoneb] 3 ml NEB QID 06/14/15 Nystatin Powder 15 gm TOP BID PRN 06/15/15 Furosemide 60 mg PO DAILY 09/05/15 Pantoprazole Sodium 40 mg PO BID 09/05/15 Sucralfate Suspension [Carafate Suspension] 1 gm PO TID 09/05/15 Tamsulosin HCl [Flomax] 0.4 mg PO DAILY 09/05/15 hydrALAZINE HCl [HydrALAzine HCl] 25 mg PO TID 09/05/15 Tiotropium [place] Monohydrate [Spiriva Respimat] 2 puff IN DAILY #0 12/07/15 Acetaminophen [Tylenol] 500 - 1,000 mg PO PRN PRN 06/04/16 Fexofenadine HCl 100 mg PO DAILY 06/04/16 Magnesium Hydroxide [Milk Of Magnesia] 30 ml PO WKLY PRN 06/04/16 Multiple Vitamins W/ Minerals [Centrum Silver] 1 tab PO DAILY 06/04/16 Polyethylene Glycol 3350 [Miralax] 17 gm PO DAILY #30 pckt 06/12/16 Ferrous Gluconate [Iron 27] 500 mg PO DAILY 10/14/16
== END 2017-02-28 11:42 | disposition home or self-care (01) ==
LOC: ER 10:38
DX: S80.12XA Contusion of left lower leg, initial encounter (principal); I11.0 Hypertensive heart disease with heart failure; I50.9 Heart failure, unspecified; J44.9 Chronic obstructive pulmonary disease, unspecified; E78.00 Pure hypercholesterolemia, unspecified; Z79.899 Other long term (current) drug therapy; Z79.82 Long term (current) use of aspirin; Z87.891 Personal history of nicotine dependence; W19.XXXA Unspecified fall, initial encounter

== ENCOUNTER → 2017-03-16 | Outpatient (CLI) | payer MEDICARE, BC, OTHER | END | disposition home or self-care (01) | LOC: GMAB 15:02 | PROVIDERS: ATTEND Family Medicine | DX: D50.0 Iron deficiency anemia secondary to blood loss (chronic) (principal) ==

== ENCOUNTER → 2017-03-23 | Outpatient (CLI) | payer MEDICARE, BC, OTHER | LOC: GMA 21:14 | PROVIDERS: ATTEND Nurse Practitioner Acute Care | DX: L02.414 Cutaneous abscess of left upper limb (principal) ==

== ENCOUNTER → 2017-04-28 | Outpatient (CLI) | payer MEDICARE, BC, OTHER | END | disposition home or self-care (01) | LOC: YCHH 10:14 | PROVIDERS: ATTEND Family Medicine | DX: D50.8 Other iron deficiency anemias (principal) ==

== ENCOUNTER → 2017-05-19 | Outpatient (CLI) | payer MEDICARE, BC | LOC: YCHH 10:25 | PROVIDERS: ATTEND Family Medicine | DX: D64.9 Anemia, unspecified (principal); E11.9 Type 2 diabetes mellitus without complications ==

== ENCOUNTER → 2017-06-09 | Outpatient (CLI) | payer MEDICARE, BC | LOC: YCHH 10:03 | PROVIDERS: ATTEND Family Medicine | DX: D50.9 Iron deficiency anemia, unspecified (principal) ==

== ENCOUNTER → 2017-06-29 | Outpatient (CLI) | payer MEDICARE, BC | LOC: YCHH 13:51 | PROVIDERS: ATTEND Family Medicine | DX: D64.9 Anemia, unspecified (principal) ==

== ENCOUNTER → 2017-08-11 | Outpatient (CLI) | payer MEDICARE, BC | LOC: YCHH 09:49 | PROVIDERS: ATTEND Family Medicine | DX: D64.9 Anemia, unspecified (principal) ==

== ENCOUNTER → 2017-08-25 | Outpatient (CLI) | payer MEDICARE, BC | LOC: YCHH 10:04 | PROVIDERS: ATTEND Family Medicine | DX: D64.9 Anemia, unspecified (principal); E11.9 Type 2 diabetes mellitus without complications ==

== ENCOUNTER → 2017-09-29 | Outpatient (CLI) | payer MEDICARE, BC | LOC: YCHH 11:24 | PROVIDERS: ATTEND Family Medicine | DX: D64.9 Anemia, unspecified (principal); E11.9 Type 2 diabetes mellitus without complications; D50.9 Iron deficiency anemia, unspecified ==

== ENCOUNTER 2017-10-05 13:03 | Emergency (ER) | payer MEDICARE, BC ==
[2017-10-05] MEDS ORDERED: ONDANSETRON INJ 4 MG/2 ML VIAL IV ONE (15:04)
[2017-10-05] MEDS ORDERED: SODIUM CHLORIDE 0.9% (FLUSH) 10 ML SYG IV PRN (15:04)
[2017-10-05] MEDS ORDERED: MORPHINE SULFATE INJ 10 MG/ML VIAL IV ONE (15:05)
[2017-10-05 15:14] VITALS: TEMP 97.5
--- NOTE | 2017-10-05 15:42 | ED.PDOC ---
History of Present Illness - General Chief Complaint: Abdominal Pain Stated Complaint: ABDOMINAL PAIN Time Seen by Provider: 10/05/17 14:26 Information Source: patient, family Exam Limitations: no limitations - History of Present Illness Initial Comments: PT PRESENTS TO THE ED WITH COMPLAINT OF PAIN TO THE SITE OF HIS UMBILICAL HERNIA. PT REPORTS INTERMITTENT NAUSEA/VOMITING. HE REPORTS HE WAS ABLE TO HAVE A BOWEL MOVEMENT AND PASS GAS TODAY. Abdominal Pain Onset Location: periumbilical Pain Radiation: no radiation Quality: moderate, aching Timing/Duration: days Improving Factors: nothing Worsening Factors: nothing Associated Symptoms: nausea/vomiting, swelling/mass in abdomen Review of Systems - Review of Systems Constitutional: Denies: chills, fever EENTM: Denies: nose congestion, throat swelling Respiratory: Denies: cough, short of breath Cardiology: Denies: chest pain, palpitations Gastrointestinal/Abdominal: States: abdominal pain, nausea, vomiting. Denies: diarrhea Genitourinary: Denies: dysuria, frequency Musculoskeletal: Denies: joint pain, joint swelling Skin: Denies: dryness, lesions Neurological: Denies: headache, numbness Endocrine: States: no symptoms reported Hematologic/Lymphatic: States: no symptoms reported Past Medical History (General) - Patient Medical History Hx Seizures: No Hx Stroke: No Hx Dementia: No Hx Asthma: No Hx of COPD: Yes Hx Cardiac Disorders: Yes Hx Congestive Heart Failure: Yes Hx Pacemaker: No Hx Hypertension: Yes Hx Thyroid Disease: No Hx Diabetes: No Hx Gastroesophageal Reflux: Yes Hx Renal Disease: No Hx Cancer: No Hx of HIV: No Hx Hepatitis C: No Hx MRSA: No MRSA Source:: Wound - Vaccination History Hx Tetanus, Diphtheria Vaccination: Yes Hx Influenza Vaccination: Yes Hx Pneumococcal Vaccination: Yes Immunizations Up to Date: Yes - Social History Hx Tobacco Use: No Hx Chewing Tobacco Use: No Hx Alcohol Use: No Hx Substance Use: No Hx Substance Use Treatment: No Hx Depression: No Feels Threatened In Home Enviroment: No Feels Threatened In a Relationship: No Hx Physical Abuse: No Hx Emotional Abuse: No Hx Suspected Abuse: No - Activities of Daily Living Hospice Agency (if applicable):: None Family Medical History - Family History Mother Name: Edilia Cabrera Living Status: Age at (years of age): 79 Cause of : Pneumonia Hx Family Hypertension: Yes Hx Family Diabetes: Yes Physical Exam - Physical Exam General Appearance: Alert, Well Developed, Well Hydrated, Well Nourished Eyes, Ears, Nose, Throat Exam: normal ENT inspection Neck: full range of motion, supple Respiratory: lungs clear, normal breath sounds, no respiratory distress Cardiovascular/Chest: regular rate, rhythm, no murmur Gastrointestinal/Abdominal: soft, tenderness, hernia - NON REDUCIBLE, WITH MILD ERYTHEMA AT HERNIA SITE. Extremity: normal range of motion, non-tender, normal inspection Neurologic: alert, normal mood/affect, oriented x 3 Skin Exam: normal color, warm/dry Progress - Progress Progress: 10/05/17 16:44 PT RESTING COMFORTABLY ON RE-EVAL. LABS AND DIAGNOSTICS DISCUSSED. WILL PLACE ICE PACK AND ATTEMPT TO REDUCE HERNIA. 10/05/17 17:35 PRESSURE APPLIED TO HERNIA WITH SUCCESSFUL REDUCTION, HOWEVER, HERNIA IMMEDIATELY COMES BACK OUT. - EKG/XRAY/CT EKG: Atrial, Fibrillation - @82BPM, RAD, POOR R WAVE PROGRESSION, ST depression - WITH T WAVE INVERSIONS IN LATERAL LEADS, Changed from - 06/04/16. - Consult/PCP Consult/PCP: DR. LEE Consult Reason/Comments: CASE DISCUSSED, FEELS THAT PT SHOULD BE TRANSFERRED. Departure - Departure Clinical Impression: Ventral hernia with bowel obstruction Time of Disposition: 17:36 Disposition: Transfer to Hospital Condition: Fair Departure Forms: ED Discharge - Pt. Copy, Patient Portal Self Enrollment Instructions: DI for Abdominal Pain-Adult Referrals: Cassius Holland MD [Primary Care Provider] - 1-2 Weeks Home Medications: Ambulatory Orders Aspirin [Aspirin EC] 81 mg PO DAILY 01/31/14 Simvastatin 20 mg PO BEDTIME 11/25/14 DULoxetine HCL [Cymbalta] 60 mg PO DAILY 06/14/15 Diltiazem HCl [Diltiazem HCl ER] 90 mg PO DAILY 06/14/15 Dutasteride [Avodart] 0.5 mg PO DAILY 06/14/15 Fluticasone/Salmeterol 250/50 [Advair 250/50 Diskus] 1 puff INH BID 06/14/15 Ipratropium/Albuterol [Duoneb] 3 ml NEB QID 06/14/15 Nystatin Powder 15 gm TOP BID PRN 06/15/15 Furosemide 60 mg PO DAILY 09/05/15 Pantoprazole Sodium 40 mg PO BID 09/05/15 Sucralfate Suspension [Carafate Suspension] 1 gm PO TID 09/05/15 Tamsulosin HCl [Flomax] 0.4 mg PO DAILY 09/05/15 hydrALAZINE HCl [HydrALAzine HCl] 25 mg PO TID 09/05/15 Tiotropium [place] Monohydrate [Spiriva Respimat] 2 puff IN DAILY #0 12/07/15 Acetaminophen [Tylenol] 500 - 1,000 mg PO PRN PRN 06/04/16 Fexofenadine HCl 100 mg PO DAILY 06/04/16 Magnesium Hydroxide [Milk Of Magnesia] 30 ml PO WKLY PRN 06/04/16 Multiple Vitamins W/ Minerals [Centrum Silver] 1 tab PO DAILY 06/04/16 Polyethylene Glycol 3350 [Miralax] 17 gm PO DAILY #30 pckt 06/12/16 Ferrous Gluconate [Iron 27] 500 mg PO DAILY 10/14/16 Transfer to Outside Facility - Transfer Information Accepting Provider:: DR. JEAN-BAPTISTE. Accepting Facility: [facility] Reason for Transfer: required specialist not available - SURGERY
--- NOTE | 2017-10-05 16:35 | CT ---
EXAM DESCRIPTION: Abdomen/Pelvis w/Contrast CLINICAL HISTORY: 87 years Male pain at umbilical hernia site, COMPARISON: 06/06/2016 TECHNIQUE: Contiguous axial images obtained through the abdomen and pelvis following IV contrast. Reformatted images obtained. This exam was performed according to our department optimization program which includes automated exposure control, adjustment of the mA and/or kv according to patient size and/or use of iterative reconstruction technique. FINDINGS: There is an area of rounded atelectasis and pleural thickening in the left lung base similar to the previous study. Large hiatal hernia. Calcification in the coronary arteries and aorta. There is trace perihepatic fluid. Liver appears otherwise unremarkable. The spleen and pancreas are within normal limits. No adrenal masses. No evidence of hydronephrosis. Calcifications in the renal hilum on the left which may reflect vascular calcifications. Stones or not excluded. The gallbladder is present with gallstones noted. No obvious wall thickening or surrounding inflammation. No aneurysmal dilatation of the aorta. There is mild fluid-filled distention of loops of small bowel concerning for obstruction or partial obstruction with relative zone of transition at the level of the large ventral hernia which contains multiple loops of bowel and a small amount of fluid. The distal small bowel appears decompressed. The appendix is unremarkable. Question small area of wall thickening in a loop of colon in the right anterior abdomen. This may reflect area of wall thickening or inflammation such as colitis. The possibility of an underlying mass is not entirely excluded. Incomplete distention of the urinary bladder with a Walton catheter in place. Wall appears thickened. Prostate is enlarged. IMPRESSION: Findings concerning for partial or developing small bowel obstruction with the zone of transition in the region of the ventral hernia which contains loops of decompressed small bowel and small amount of fluid Area of wall thickening in the redundant sigmoid colon , just to the right of the area of herniation which may reflect infectious or inflammatory process. Possibility of an underlying wall mass is not entirely excluded Small amount of free fluid Rounded atelectasis in the left base Moderate hiatal hernia Cholelithiasis Electronically signed by: Jolynn Jay MD 10/05/2017 4:34 PM CDT
[2017-10-05 18:12] VITALS: BP 138/70; O2SAT 95
== END 2017-10-05 18:50 | disposition short-term general hospital (02) ==
LOC: ER 13:03
DX: K43.6 Other and unspecified ventral hernia with obstruction, without gangrene (principal); J44.9 Chronic obstructive pulmonary disease, unspecified; I50.9 Heart failure, unspecified; I11.0 Hypertensive heart disease with heart failure; K21.9 Gastro-esophageal reflux disease without esophagitis; Z79.82 Long term (current) use of aspirin; Z79.899 Other long term (current) drug therapy
CPT/HCPCS: 36415; 74177; 80048; 80076; 83690; 85025; 93005; J2270; J2405

== ENCOUNTER → 2017-12-15 | Outpatient (CLI) | payer MEDICARE, BC | LOC: YCHH 12:17 | PROVIDERS: ATTEND Family Medicine | DX: D64.9 Anemia, unspecified (principal) ==

== ENCOUNTER → 2018-01-16 | Outpatient (CLI) | payer MEDICARE, BC | LOC: YCHH 09:18 | PROVIDERS: ATTEND Family Medicine | DX: N39.0 Urinary tract infection, site not specified (principal) ==

== ENCOUNTER → 2018-01-18 | Outpatient (CLI) | payer MEDICARE, BC | LOC: YCHH 14:18 | PROVIDERS: ATTEND Family Medicine | DX: D64.9 Anemia, unspecified (principal); D62 Acute posthemorrhagic anemia ==

== ENCOUNTER 2018-01-24 17:40 | Emergency (ER) | payer MEDICARE, BC ==
--- NOTE | 2018-01-24 18:20 | ED.PDOC ---
History of Present Illness - General Chief Complaint: Problem Stated Complaint: hematuria Time Seen by Provider: 01/24/18 17:59 Source: patient, family Exam Limitations: no limitations - History of Present Illness Initial Comments: Patient presents with a change in color of his urine. He has a Walton with a leg bag and was recently treated for a UTI with Bactrim. He was on a 5 day course until two days ago. Today he noticed the urine becoming more rust colored. He does not have significant bladder pain like he had last week with his UTI. He says he is drinking plenty of fluids. He has an appointment with a urologist tomorrow. No other complaints. Denies fever or back pain. Timing/Duration: 4-6 hours Severity: mild Improving Factors: nothing Worsening Factors: nothing Associated Symptoms: denies symptoms Allergies/Adverse Reactions: Allergies Lisinopril Allergy (Severe, Verified 11/19/17 00:05) Anaphylaxis Clonidine [From Catapres-TTS] Allergy (Verified 11/19/17 00:05) Rash Home Medications: Ambulatory Orders Simvastatin 20 mg PO BEDTIME 11/25/14 DULoxetine HCL [Cymbalta] 60 mg PO DAILY 06/14/15 Dutasteride [Avodart] 0.5 mg PO DAILY 06/14/15 Nystatin Powder 15 gm TOP BID PRN 06/15/15 Furosemide 40 mg PO DAILY 09/05/15 Pantoprazole Sodium 40 mg PO ACBK 09/05/15 Sucralfate Suspension [Carafate Suspension] 1 gm PO ACHS 09/05/15 Tamsulosin HCl [Flomax] 0.4 mg PO DAILY 09/05/15 hydrALAZINE HCl [HydrALAzine HCl] 50 mg PO TID 09/05/15 Tiotropium [place] Monohydrate [Spiriva Respimat] 2 puff IN RTDAILY #0 12/07/15 Fexofenadine HCl 100 mg PO DAILY 06/04/16 Multiple Vitamins W/ Minerals [Centrum Silver] 1 tab PO DAILY 06/04/16 Apixaban [Eliquis] 2.5 mg PO BID 11/19/17 Arformoterol Tartrate Nebs [Brovana Nebs] 15 mcg NEB RTBID 11/19/17 Budesonide (Inhalation) [Pulmicort] 0.5 mg IN RTBID 11/19/17 Carbamazepine [Tegretol-Xr] 400 mg PO BID 11/19/17 Diltiazem HCl [Diltiazem HCl ER] 90 mg PO BID 11/19/17 HYDROcodone 5MG/APAP 325MG [[place] 5/325] 1 tab PO Q4H PRN 11/19/17 Ipratropium [place] Nebs [Atrovent NEBS] 0.5 mg INH RTQID 11/19/17 Megestrol Acetate (Appetite) [Megace Es] 625 mg PO DAILY 11/19/17 Metoprolol Succinate [Toprol Xl] 50 mg PO BID 11/19/17 Polyethylene Glycol 3350 [Miralax] 17 gm PO BID 11/19/17 Ropinirole Hydrochloride [Ropinirole HCl] 0.25 mg PO BEDTIME PRN 11/20/17 Senna/Docusate Tab [Senokot-S] 2 ea PO BID PRN 11/22/17 ALPRAZolam [Xanax] 0.25 mg PO Q6H PRN 11/25/17 Bifidobacterium Infantis [Align] 4 mg PO DAILY 11/25/17 Sulfa/Trimeth 800/160 (Ds) Tab [Bactrim DS] 1 tablet PO BID #20 tab 01/24/18 Review of Systems - Review of Systems Constitutional: States: no symptoms reported EENTM: States: no symptoms reported Respiratory: States: no symptoms reported Cardiology: States: no symptoms reported Gastrointestinal/Abdominal: States: no symptoms reported Genitourinary: States: see HPI Musculoskeletal: States: no symptoms reported Skin: States: no symptoms reported Neurological: States: no symptoms reported Endocrine: States: no symptoms reported Hematologic/Lymphatic: States: no symptoms reported Past Medical History (General) - Patient Medical History Hx Seizures: No Hx Stroke: No Hx Dementia: No Hx Asthma: Yes Hx of COPD: Yes Hx Cardiac Disorders: Yes Hx Congestive Heart Failure: Yes Hx Pacemaker: No Hx Hypertension: Yes Hx Thyroid Disease: No Hx Diabetes: No Hx Gastroesophageal Reflux: Yes Hx Renal Disease: No Hx Cancer: No Hx of HIV: No Hx Hepatitis C: No Hx MRSA: Yes MRSA Source:: Urine Surgical History: coronary bypass surgery, other - Vaccination History Hx Tetanus, Diphtheria Vaccination: Yes Hx Influenza Vaccination: Yes - 2016 Hx Pneumococcal Vaccination: Yes - 2012 - Social History Hx Tobacco Use: Yes - Quit 1987 Hx Chewing Tobacco Use: No Hx Alcohol Use: No Hx Substance Use: No Hx Substance Use Treatment: No Hx Depression: No Hx Physical Abuse: No Hx Emotional Abuse: No Hx Suspected Abuse: No Family Medical History - Family History Mother Name: Edilia Cabrera Living Status: Age at (years of age): 79 Cause of : Pneumonia Hx Family Hypertension: Yes Hx Family Diabetes: Yes Physical Exam - Physical Exam General Appearance: Alert Respiratory: lungs clear, normal breath sounds Cardiovascular/Chest: normal peripheral pulses, regular rate, rhythm, no edema Gastrointestinal/Abdominal: normal bowel sounds, non tender, soft, other - bladder mildly TTP Back Exam: normal inspection, no CVA tenderness Skin Exam: normal color Lymphatic: no adenopathy Progress - Progress Progress: 01/24/18 19:31 Patient remained asymptomatic in the E.D. His UA showed TNTC blood. His Hct has not fallen from his previous. He is due for evaluation for his anemia this week. Because I cannot rule out an occult UTI, will start Bactrim DS and let him be further evaluated by his pcp on Thursday. Also, his creatinine is 1.42 which is above his baseline. I spoke with the patient and his daughter about the option to admit for fluids versus the option to go home and rehydrate orally. They chose to go home and rehydrate orally and have his BUN/Cr rechecked in Thursday by Dr. Bay. E.D. warnings given. Care instructions given. Questions were elicited and answered. The patient and his daughther voiced understanding and agreement with the plan. Laboratory Tests 01/24/18 01/24/18 01/24/18 18:00 18:22 18:22 WBC 5.1 RBC 2.84 L Hgb 8.3 L Hct 25.9 L MCV 90.9 MCH 29.2 MCHC 32.2 L RDW 15.7 H Plt Count 338 MPV 6.8 L Absolute Neuts (auto) 3.20 Absolute Lymphs (auto) 1.20 Absolute Monos (auto) 0.40 Absolute Eos (auto) 0.30 Absolute Basos (auto) 0.00 Neutrophils % 62.6 Lymphocytes % 23.2 Monocytes % 7.9 Eosinophils % 5.5 H Basophils % 0.8 Sodium 132 L Potassium 5.1 H Chloride 102 Carbon Dioxide 23 Anion Gap 12.1 BUN 36 H Creatinine 1.42 H BUN/Creatinine Ratio 25.4 H Random Glucose 116 H Serum Osmolality 273.8 L Calcium 8.2 L Urine Color Red Urine Appearance Cloudy Urine pH 6.0 Ur Specific [place] 1.015 Urine Protein 100 H Urine Glucose (UA) Negative Urine Ketones Trace Urine Blood Large H Urine Nitrite Positive H Urine Bilirubin Negative Urine Urobilinogen 0.2 Ur Leukocyte Esterase Small H Urine RBC Tntc H Urine WBC Obscured by rbc's H Ur Epithelial Cells 0 Urine Bacteria Obscured by rbc's H Departure - Departure Clinical Impression: Hematuria, Dehydration Disposition: Discharge to Home or Self Care Condition: Fair Departure Forms: ED Discharge - Pt. Copy, Patient Portal Self Enrollment Diet: other - Increase oral fluids by at least two quarts of water per day until your BUN and Creatinine are remeasured. Referrals: KERA BAY MD [Primary Care Provider] - 1-2 Weeks Prescriptions: Sulfa/Trimeth 800/160 (Ds) Tab [Bactrim DS] 1 tablet PO BID #20 tab Home Medications: Ambulatory Orders Simvastatin 20 mg PO BEDTIME 11/25/14 DULoxetine HCL [Cymbalta] 60 mg PO DAILY 06/14/15 Dutasteride [Avodart] 0.5 mg PO DAILY 06/14/15 Nystatin Powder 15 gm TOP BID PRN 06/15/15 Furosemide 40 mg PO DAILY 09/05/15 Pantoprazole Sodium 40 mg PO ACBK 09/05/15 Sucralfate Suspension [Carafate Suspension] 1 gm PO ACHS 09/05/15 Tamsulosin HCl [Flomax] 0.4 mg PO DAILY 09/05/15 hydrALAZINE HCl [HydrALAzine HCl] 50 mg PO TID 09/05/15 Tiotropium [place] Monohydrate [Spiriva Respimat] 2 puff IN RTDAILY #0 12/07/15 Fexofenadine HCl 100 mg PO DAILY 06/04/16 Multiple Vitamins W/ Minerals [Centrum Silver] 1 tab PO DAILY 06/04/16 Apixaban [Eliquis] 2.5 mg PO BID 11/19/17 Arformoterol Tartrate Nebs [Brovana Nebs] 15 mcg NEB RTBID 11/19/17 Budesonide (Inhalation) [Pulmicort] 0.5 mg IN RTBID 11/19/17 Carbamazepine [Tegretol-Xr] 400 mg PO BID 11/19/17 Diltiazem HCl [Diltiazem HCl ER] 90 mg PO BID 11/19/17 HYDROcodone 5MG/APAP 325MG [[place] 5/325] 1 tab PO Q4H PRN 11/19/17 Ipratropium [place] Nebs [Atrovent NEBS] 0.5 mg INH RTQID 11/19/17 Megestrol Acetate (Appetite) [Megace Es] 625 mg PO DAILY 11/19/17 Metoprolol Succinate [Toprol Xl] 50 mg PO BID 11/19/17 Polyethylene Glycol 3350 [Miralax] 17 gm PO BID 11/19/17 Ropinirole Hydrochloride [Ropinirole HCl] 0.25 mg PO BEDTIME PRN 11/20/17 Senna/Docusate Tab [Senokot-S] 2 ea PO BID PRN 11/22/17 ALPRAZolam [Xanax] 0.25 mg PO Q6H PRN 11/25/17 Bifidobacterium Infantis [Align] 4 mg PO DAILY 11/25/17 Sulfa/Trimeth 800/160 (Ds) Tab [Bactrim DS] 1 tablet PO BID #20 tab 01/24/18 Additional Instructions: Increase your fluids by two quarts every day until you can have your BUN and creatinine checked by Dr. Bay. I recommend that you do that on Thursday ( in two days). Return to the E.R. for light-headedness, fainting, or temperature above 100.4. Take your new medications as prescribed. Have your anemia evaluated as scheduled since you are losing some blood in the urine.
[2018-01-24 19:07] VITALS: O2SAT 98
[2018-01-24] MEDS ORDERED: SULFA/TRIMETH 800/160 (DS) TAB 1 EA TAB PO ONE (19:30)
[2018-01-24 19:48] VITALS: BP 149/69; TEMP 98.4
== END 2018-01-24 19:47 | disposition home or self-care (01) ==
LOC: ER 17:40
DX: R31.0 Gross hematuria (principal); E86.0 Dehydration; J44.9 Chronic obstructive pulmonary disease, unspecified; I50.9 Heart failure, unspecified; I11.0 Hypertensive heart disease with heart failure; K21.9 Gastro-esophageal reflux disease without esophagitis; Z87.891 Personal history of nicotine dependence; Z87.440 Personal history of urinary (tract) infections; Z79.899 Other long term (current) drug therapy; Z88.8 Allergy status to other drugs, medicaments and biological substances

== ENCOUNTER → 2018-01-28 | Outpatient (CLI) | payer MEDICARE, BC | LOC: YCHH 10:32 | PROVIDERS: ATTEND Family Medicine | DX: D64.9 Anemia, unspecified (principal) ==

== ENCOUNTER → 2018-02-08 | Outpatient (CLI) | payer MEDICARE, BC | LOC: YCHH 12:13 | PROVIDERS: ATTEND Family Medicine | DX: D64.9 Anemia, unspecified (principal) ==

== ENCOUNTER → 2018-02-15 | Outpatient (CLI) | payer MEDICARE, BC | LOC: YCHH 10:12 | PROVIDERS: ATTEND Family Medicine | DX: D64.9 Anemia, unspecified (principal); E11.9 Type 2 diabetes mellitus without complications; E78.5 Hyperlipidemia, unspecified; R97.20 Elevated prostate specific antigen [PSA] | CPT/HCPCS: 80053; 80061; 82728; 83036; 85025; G0103 ==

== ENCOUNTER → 2018-03-01 | Outpatient (CLI) | payer MEDICARE, BC | LOC: YCHH 11:18 | PROVIDERS: ATTEND Family Medicine | DX: D64.9 Anemia, unspecified (principal) ==

== ENCOUNTER 2018-03-07 11:43 | Inpatient (IN) | payer MEDICARE, BC ==
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
--- NOTE | 2018-03-07 13:04 | RAD ---
PROCEDURE: XR CHEST 1 VIEW HISTORY: SOB COMPARISON: 11/23/2017 TECHNIQUE: Single projection of the chest was done. FINDINGS: There is median sternotomy. Small hiatal hernia is noted . There are no discrete airspace infiltrates, pneumothoraces or pleural effusions. The pulmonary vascularity is normal. The cardiomediastinal silhouette is stable. IMPRESSION: There is no acute pleural-parenchymal process seen in the imaged lung harding. Location of Interpretation: Teleradiology Electronically signed by: Raghavendra Brambila MD 03/07/2018 1:03 PM [facility] Workstation: [id number]
--- NOTE | 2018-03-07 13:06 | CT ---
PROCEDURE: Head HISTORY: CONFUSION, FALL Indication: Same as above Comparison: None Technique: CT of the head was done without intravenous contrast was done in the orthogonal planes. This exam was performed according to our departmental dose-optimization program, which includes automated exposure control, adjustment of the mA and/or KV according to the patient's size and/or use of iterative reconstruction technique. FINDINGS: There is no intracranial hemorrhage, midline shift mass effect or acute focal infarct. There is prominence of the sylvian fissures and the cortical sulci reflecting age related volume loss. There is periventricular and deep white matter low attenuation, most likely related to small vessel white matter ischemic disease. Intracranial atherosclerotic vascular wall calcifications are seen. If clinical concern exists regarding an acute ischemic/vascular pathology being responsible for patient's symptomatology, an MRI of the brain is more sensitive than the current study, in ruling out such a possibility. There is good portillo/white matter differentiation. The ventricular system is normal. The mastoid air cells are unremarkable . The paranasal sinuses are unremarkable . There is no visualization of acute fractures involving the calvarium or the skull base. IMPRESSION: There is no acute intracranial abnormality. Age related and chronic involutional changes are seen. Electronically signed by: Ragahvendra Brambila MD 03/07/2018 1:[address] [facility] Workstation: [id number]
[2018-03-07] MEDS ORDERED: ACETAMINOPHEN 500 MG TAB PO ONE (13:54)
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
[2018-03-07] MEDS ORDERED: ACETAMINOPHEN 325 MG TAB PO ONE (15:36)
[2018-03-07] MEDS ORDERED: diphenhydrAMINE HCL 50 MG/ML VIAL IV ONE (15:36)
[2018-03-07] MEDS ORDERED: ONDANSETRON INJ 4 MG/2 ML VIAL IV PRN (15:38)
[2018-03-07] MEDS ORDERED: SODIUM CHLORIDE 0.9% 500ML 500 ML IVS SCH (16:00)
[2018-03-07] MEDS ORDERED: IV SET AND CAP CHANGE INJ INJ SCH (16:00)
[2018-03-07] MEDS ORDERED: levoFLOXacin 250MG IV 50 ML IVPB ONE (16:03)
[2018-03-07] MEDS: levoFLOXacin 250MG IV 250 MG in PREMIX BAG 1 BAG IVPB SCH (16:06)
[2018-03-07] MEDS: SODIUM CHLORIDE 0.9% (FLUSH) 10 ML SYG IV PRN ×2 (16:06→20:43)
[2018-03-07] MEDS: ALPRAZolam 0.25 MG TAB PO PRN ×2 (17:30→23:50)
[2018-03-07] MEDS ORDERED: FUROSEMIDE INJ 20 MG/2 ML VIAL IV ONE (18:21)
[2018-03-07] MEDS ORDERED: SUCRALFATE 1 GM TAB PO ONE (19:32)
[2018-03-07] MEDS ORDERED: BUDESONIDE 0.5 MG IN SCH (20:00)
[2018-03-07] MEDS: ARFORMOTEROL TARTRATE 15 MCG/2 ML NEB NEB SCH (20:03)
[2018-03-07] MEDS: CARBAMAZEPINE 400 MG PO SCH (20:40)
[2018-03-07] MEDS: APIXABAN 2.5 MG TAB PO SCH (20:40)
[2018-03-07] MEDS: POLYETHYLENE GLYCOL 3350 17 GM PCKT PO SCH (20:40)
[2018-03-07] MEDS: SUCRALFATE 1 GM/10 ML 1 GM UD PO SCH (20:41)
[2018-03-07] MEDS: METOPROLOL SUCCINATE XL 50 MG TAB PO SCH (20:41)
[2018-03-07] MEDS: SIMVASTATIN 20 MG TAB PO SCH (20:41)
[2018-03-07] MEDS: ACETAMINOPHEN PO SCH (22:09)
[2018-03-08] MEDS ORDERED: SUCRALFATE 1 GM TAB PO ONE (05:38)
[2018-03-08] MEDS: SUCRALFATE 1 GM/10 ML 1 GM UD PO SCH ×4 (06:16→20:40)
[2018-03-08] MEDS: PANTOPRAZOLE SODIUM TAB 40 MG PO SCH (06:16)
[2018-03-08] MEDS: ACETAMINOPHEN PO SCH ×2 (06:17→14:02)
[2018-03-08] MEDS: ACETAMINOPHEN 325 MG TAB PO PRN ×2 (07:05→19:47)
[2018-03-08] MEDS: BUDESONIDE 0.5 MG IN SCH ×2 (08:15→20:37)
[2018-03-08] MEDS ORDERED: diltiaZEM HCL CD 180 MG CAP ONE (08:17)
[2018-03-08] MEDS: ARFORMOTEROL TARTRATE 15 MCG/2 ML NEB NEB SCH ×2 (08:17→20:37)
[2018-03-08] MEDS ORDERED: BIFIDOBACTERIUM INFANTIS 4 MG CAP ONE (08:18)
[2018-03-08] MEDS ORDERED: DULoxetine HCL 30 MG CAP PO ONE (08:18)
[2018-03-08] MEDS ORDERED: MEGESTROL ACETATE 625 MG PO SCH (09:00)
[2018-03-08] MEDS ORDERED: LORATADINE 10 MG TAB PO SCH (09:00)
[2018-03-08] MEDS ORDERED: LORATADINE 10 MG TAB PO ONE (09:05)
--- NOTE | 2018-03-08 09:19 | RAD ---
Study: Frontal and Lateral Views of the Chest. Indication: copd Comparison: March 07, 2018 Impression: Median sternotomy wires. Mild cardiomegaly. Atherosclerosis aorta. Hiatal hernia suspected. Emphysema suspected. Tiny left pleural effusion. Patchy bibasilar atelectasis versus scarring. No definite consolidation or pneumothorax. Osteopenia. If this is a new finding, DEXA scan recommended as well as evaluation for possible osteoporosis treatment. Electronically signed by: Michael Dolan MD 03/08/2018 9:18 AM [facility]
[2018-03-08] MEDS: DUTASTERIDE 0.5 MG CAP PO SCH (09:20)
[2018-03-08] MEDS: APIXABAN 2.5 MG TAB PO SCH ×2 (09:20→20:40)
[2018-03-08] MEDS: TAMSULOSIN 0.4 MG CAP PO SCH (09:21)
[2018-03-08] MEDS: diltiaZEM HCL CD 180 MG CAP PO SCH (09:23)
[2018-03-08] MEDS: DULoxetine HCL 30 MG CAP PO SCH (09:23)
[2018-03-08] MEDS: CARBAMAZEPINE 400 MG PO SCH ×2 (09:24→20:42)
[2018-03-08] MEDS: FUROSEMIDE 40 MG TAB PO SCH (09:27)
[2018-03-08] MEDS: POLYETHYLENE GLYCOL 3350 17 GM PCKT PO SCH ×2 (09:28→20:40)
[2018-03-08] MEDS: SENNOSIDES 8.6 MG TAB PO SCH (10:13)
[2018-03-08] MEDS: METOPROLOL SUCCINATE XL 50 MG TAB PO SCH ×2 (10:13→20:40)
[2018-03-08] MEDS: BIFIDOBACTERIUM INFANTIS 4 MG CAP PO SCH (10:13)
--- NOTE | 2018-03-08 10:30 | PN ---
SUPERVISING PHYSICIAN: Valdez Gilman MD DATE: 03/08/18 SUBJECTIVE: The patient is lying in bed, states he feels much stronger than yesterday. He still has occasional shortness of breath but since he received the blood he feels much better. He denies chest pain, nausea, vomiting, diarrhea or constipation. OBJECTIVE: VITAL SIGNS: T-max 24-hours is 99, heart rate 73, blood pressure 167/74, respiratory rate is 20, 02 saturation 98% on 2 liters. RESPIRATORY: Scattered rhonchi throughout, somewhat diminished at the bases. CARDIAC: Regular rate, irregular rhythm. GI: Abdomen soft, nondistended, non- tender. Bowel sounds are positive. EXTREMITIES: No cyanosis, clubbing, or edema. NEURO: He is awake, alert and oriented x 3. LABORATORY WBC 7.8, hemoglobin 9.9, hematocrit 31 after 2 units of packed red blood cells. He continues to have a left shift on his differential. Electrolytes are basically within normal limits except his calcium is low at 8.2 , BUN 41, creatinine 1.62. Urine cultures are pending. Chest x-ray shows emphysema with type 2 bibasilar atelectasis versus scaring. No definite consolidations or pneumothorax. Osteopenia, DEXA is recommended, no evaluation has been done for osteoporosis in the past. All other labs and films have been reviewed via the EMR. ASSESSMENT: 1. Symptomatic anemia secondary to chronic iron deficiency anemia. There is no current evidence of blood loss. Continue to await stools for occult blood sampling. . 2. Chronic obstructive pulmonary disease with concerns for possible bibasilar pneumonia, community acquired. 3. Chronic atrial fibrillation on chronic anticoagulation with Eliquis showing controlled ventricular rate. 4. Chronic kidney disease with some worsening from baseline may be due to prerenal azotemic due to his severe anemia. 5. History of congestive heart failure with diastolic etiology with an ejection fraction of 57% on echocardiogram of 2009. There is no current exacerbation on admission, although patient did have an elevated BNP on admission. 6. Gastroesophageal reflux disease. 7. Urinary tract infection with chronic Walton catheter. His culture results from 03/05 showed Klebsiella aerogenes. He is presently on Levaquin. . PLAN: We will continue present supportive care. Recheck his labs in the morning as well as monitor cultures as those become available. Will continue his Levaquin and I have discontinued his IV fluids. Will plan for discharge in the next one to two days. He lives in [facility] and has [facility]. #[id number] MTDD
[2018-03-08] MEDS ORDERED: levoFLOXacin 250MG IV 50 ML IVPB ONE (15:06)
[2018-03-08] MEDS: levoFLOXacin 250MG IV 250 MG in PREMIX BAG 1 BAG IVPB SCH (15:14)
[2018-03-08] MEDS: ALPRAZolam 0.25 MG TAB PO PRN (19:47)
[2018-03-08] MEDS: SODIUM CHLORIDE 0.9% (FLUSH) 10 ML SYG IV PRN (20:41)
[2018-03-08] MEDS: SIMVASTATIN 20 MG TAB PO SCH (20:41)
[2018-03-09] MEDS: PANTOPRAZOLE SODIUM TAB 40 MG PO SCH (06:09)
[2018-03-09] MEDS: SUCRALFATE 1 GM/10 ML 1 GM UD PO SCH ×4 (06:09→20:56)
[2018-03-09] MEDS: ARFORMOTEROL TARTRATE 15 MCG/2 ML NEB NEB SCH ×2 (08:22→20:05)
[2018-03-09] MEDS: BUDESONIDE 0.5 MG IN SCH ×2 (08:22→20:05)
[2018-03-09] MEDS: CARBAMAZEPINE 400 MG PO SCH ×2 (08:51→20:57)
[2018-03-09] MEDS: MEGESTROL ACETATE 40 MG/ML PO SCH (08:52)
[2018-03-09] MEDS: diltiaZEM HCL CD 180 MG CAP PO SCH (08:53)
[2018-03-09] MEDS: FUROSEMIDE 40 MG TAB PO SCH (08:53)
[2018-03-09] MEDS: POLYETHYLENE GLYCOL 3350 17 GM PCKT PO SCH ×2 (08:53→20:57)
[2018-03-09] MEDS: DUTASTERIDE 0.5 MG CAP PO SCH (08:54)
[2018-03-09] MEDS: DULoxetine HCL 30 MG CAP PO SCH (08:54)
[2018-03-09] MEDS: BIFIDOBACTERIUM INFANTIS 4 MG CAP PO SCH (08:54)
[2018-03-09] MEDS: APIXABAN 2.5 MG TAB PO SCH ×2 (08:55→20:57)
[2018-03-09] MEDS: SENNOSIDES 8.6 MG TAB PO SCH (08:55)
[2018-03-09] MEDS: METOPROLOL SUCCINATE XL 50 MG TAB PO SCH ×2 (08:55→20:57)
[2018-03-09] MEDS: TAMSULOSIN 0.4 MG CAP PO SCH (08:55)
[2018-03-09] MEDS ORDERED: MEGESTROL ACETATE SUSP 400 MG/10 ML UD PO SCH (09:00)
--- NOTE | 2018-03-09 13:15 | PN ---
SUPERVISING PHYSICIAN: Valdez Gilman MD DATE: 03/09/18 SUBJECTIVE: The patient is sitting in his chair in his room. He is in no acute distress. He complains of continued weakness as well as shortness of breath with exertion, but feels much improved since yesterday. He denies chest pain, nausea, vomiting, diarrhea or constipation. OBJECTIVE: VITAL SIGNS: T-max 24-hours is 99. Heart rate 94. Blood pressure 152/69. Respiratory rate 20. O2 saturation 92% on 2 liters nasal cannula. RESPIRATORY: Diminished at the bases with a few scattered rhonchi. CARDIAC: Regular rate, irregular rhythm. GASTROINTESTINAL: Abdomen soft, nondistended, nontender. Bowel sounds are positive. EXTREMITIES: No cyanosis, clubbing, or edema. NEUROLOGIC: He is awake, alert and oriented x 3. LABORATORY WBC 6.5, hemoglobin dropped to 9.4, hematocrit dropped to 28.9. Electrolytes are basically within normal limits. BUN 42, creatinine 1.43. Urine culture is pending. All other labs and films have been reviewed via the EMR. ASSESSMENT: 1. Symptomatic anemia secondary to deficiency anemia. Awaiting stools for occult blood. 2. Chronic obstructive pulmonary disease with concerns for possible bibasilar pneumonia, community acquired. 3. Chronic atrial fibrillation on chronic anticoagulation with Eliquis showing controlled ventricular rate. 4. Chronic kidney disease with some slight improvement from yesterday, but still worsening from baseline, may be due to prerenal azotemic due to his severe anemia. 5. History of congestive heart failure with diastolic etiology with an ejection fraction of 57% on echocardiogram of 2009. There is no current exacerbation on admission, although patient did have an elevated BNP on admission. 6. Gastroesophageal reflux disease. 7. Urinary tract infection with chronic Walton catheter. His culture results from 03/05 showed Klebsiella aerogenes. He is presently on Levaquin. PLAN: We will continue present supportive care. I will repeat his labs in the morning and hopefully he can be discharged tomorrow. He will ambulate in the hallways 4 times daily and I will consult physical therapy for safety on discharge. I have ordered labs and x-ray in the morning. We will continue to follow him closely and followup as needed. #[id number] [facility]
[2018-03-09] MEDS ORDERED: levoFLOXacin 250MG IV 50 ML IVPB ONE (15:43)
[2018-03-09] MEDS: levoFLOXacin 250MG IV 250 MG in PREMIX BAG 1 BAG IVPB SCH (15:50)
[2018-03-09] MEDS: SODIUM CHLORIDE 0.9% (FLUSH) 10 ML SYG IV PRN (20:56)
[2018-03-09] MEDS: SIMVASTATIN 20 MG TAB PO SCH (20:57)
[2018-03-09] MEDS: ALPRAZolam 0.25 MG TAB PO PRN (20:58)
[2018-03-09] MEDS: ACETAMINOPHEN 325 MG TAB PO PRN (20:58)
[2018-03-10] MEDS: PANTOPRAZOLE SODIUM TAB 40 MG PO SCH (06:30)
[2018-03-10] MEDS: SUCRALFATE 1 GM/10 ML 1 GM UD PO SCH ×2 (06:30→12:03)
[2018-03-10] MEDS: ARFORMOTEROL TARTRATE 15 MCG/2 ML NEB NEB SCH (08:50)
[2018-03-10] MEDS: BUDESONIDE 0.5 MG IN SCH (08:50)
--- NOTE | 2018-03-10 08:51 | RAD ---
Study: Frontal and Lateral Views of the Chest. Indication: copd Comparison: February Impression: Median sternotomy wires. Mild cardiomegaly. Atherosclerosis aorta. Hiatal hernia suspected. Emphysema suspected. Tiny left pleural effusion. Stable patchy bibasilar atelectasis versus scarring. No definite consolidation or pneumothorax. Osteopenia. If this is a new finding, DEXA scan recommended as well as evaluation for possible osteoporosis treatment. Electronically signed by: Michael Dolan MD 03/10/2018 8:50 AM [facility]
[2018-03-10] MEDS: DULoxetine HCL 30 MG CAP PO SCH (09:13)
[2018-03-10] MEDS: FUROSEMIDE 40 MG TAB PO SCH (09:13)
[2018-03-10] MEDS: SENNOSIDES 8.6 MG TAB PO SCH (09:13)
[2018-03-10] MEDS: POLYETHYLENE GLYCOL 3350 17 GM PCKT PO SCH (09:13)
[2018-03-10] MEDS: BIFIDOBACTERIUM INFANTIS 4 MG CAP PO SCH (09:13)
[2018-03-10] MEDS: METOPROLOL SUCCINATE XL 50 MG TAB PO SCH (09:13)
[2018-03-10] MEDS: DUTASTERIDE 0.5 MG CAP PO SCH (09:13)
[2018-03-10] MEDS: TAMSULOSIN 0.4 MG CAP PO SCH (09:14)
[2018-03-10] MEDS: APIXABAN 2.5 MG TAB PO SCH (09:14)
[2018-03-10] MEDS: CARBAMAZEPINE 400 MG PO SCH (09:14)
[2018-03-10] MEDS: diltiaZEM HCL CD 180 MG CAP PO SCH (09:14)
[2018-03-10] MEDS: MEGESTROL ACETATE 40 MG/ML PO SCH (09:15)
[2018-03-10] MEDS: ACETAMINOPHEN 325 MG TAB PO PRN (09:24)
[2018-03-10 10:32] VITALS: BP 159/56; TEMP 97.9; O2SAT 98
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
== END 2018-03-10 13:56 | disposition swing bed (61) | DRG 194 ==
LOC: ER 11:43 → MS 13:57
PROVIDERS: ADMIT Family Medicine; ATTEND Nurse Practitioner Family
PROC: 30253N1 (ICD-10-PCS; principal; 2018-03-07)
DX: J18.9 Pneumonia, unspecified organism (principal); I13.0 Hypertensive heart and chronic kidney disease with heart failure and stage 1 through stage 4 chronic kidney disease, or unspecified chronic kidney disease; I50.32 Chronic diastolic (congestive) heart failure; J44.0 Chronic obstructive pulmonary disease with (acute) lower respiratory infection; T83.511A Infection and inflammatory reaction due to indwelling urethral catheter, initial encounter; N39.0 Urinary tract infection, site not specified; D50.9 Iron deficiency anemia, unspecified; N18.9 Chronic kidney disease, unspecified; G50.0 Trigeminal neuralgia; E78.5 Hyperlipidemia, unspecified; I25.10 Atherosclerotic heart disease of native coronary artery without angina pectoris; R33.9 Retention of urine, unspecified; Z95.1 Presence of aortocoronary bypass graft; Z88.8 Allergy status to other drugs, medicaments and biological substances; I48.91 Unspecified atrial fibrillation; Z79.01 Long term (current) use of anticoagulants; K21.9 Gastro-esophageal reflux disease without esophagitis; B96.1 Klebsiella pneumoniae [K. pneumoniae] as the cause of diseases classified elsewhere

== ENCOUNTER 2018-03-10 14:00 | Inpatient (IN) | payer MEDICARE, BC ==
[2018-03-10] MEDS ORDERED: SODIUM PHOS/BIPHOS ENEMA ADULT 133 ML BTTL PR PRN (15:33)
[2018-03-10] MEDS ORDERED: MAGNESIUM HYDROXIDE 30 ML UD PO PRN (15:33)
[2018-03-10] MEDS ORDERED: ALBUTEROL SULFATE 2.5 MG/3 ML VIAL NEB PRN (15:37)
[2018-03-10] MEDS ORDERED: NYSTATIN POWDER 15GM BTTL TOP PRN ×2 (15:49→16:02)
[2018-03-10] MEDS: IPRATROPIUM/ALBUTEROL 3 ML VIAL INH SCH ×2 (16:45→20:30)
[2018-03-10] MEDS: levoFLOXacin 500 MG TAB PO SCH (16:52)
[2018-03-10] MEDS: SUCRALFATE 1 GM/10 ML 1 GM UD PO SCH ×2 (16:52→21:05)
[2018-03-10] MEDS ORDERED: IPRATROPIUM/ALBUTEROL 3 ML VIAL NEB SCH (17:00)
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
[2018-03-10] MEDS: IPRATROPIUM/ALBUTEROL 3 ML VIAL NEB SCH ×2 (17:20→22:50)
[2018-03-10] MEDS ORDERED: BUDESONIDE NEBS 0.5 MG/2 ML VIAL NEB SCH (20:00)
[2018-03-10] MEDS ORDERED: ARFORMOTEROL TARTRATE 15 MCG/2 ML NEB NEB SCH (20:00)
[2018-03-10] MEDS: ARFORMOTEROL TARTRATE 15 MCG/2 ML NEB NEB SCH (20:30)
[2018-03-10] MEDS ORDERED: ALPRAZolam 0.5 MG TAB ONE (20:30)
[2018-03-10] MEDS: BUDESONIDE NEBS 0.5 MG/2 ML VIAL NEB SCH (20:30)
[2018-03-10] MEDS ORDERED: CARBAMAZEPINE 400 MG PO SCH (21:00)
[2018-03-10] MEDS ORDERED: SIMVASTATIN 20 MG TAB PO SCH (21:00)
[2018-03-10] MEDS: METOPROLOL SUCCINATE XL 50 MG TAB PO SCH (21:05)
[2018-03-10] MEDS: ACETAMINOPHEN 500 MG TAB PO PRN (21:05)
[2018-03-10] MEDS: CARBAMAZEPINE 400 MG PO SCH (21:05)
[2018-03-10] MEDS: APIXABAN 2.5 MG TAB PO SCH (21:05)
[2018-03-10] MEDS: POLYETHYLENE GLYCOL 3350 17 GM PCKT PO SCH (21:05)
[2018-03-10] MEDS: SIMVASTATIN 20 MG TAB PO SCH (21:06)
[2018-03-10] MEDS: ALPRAZolam 0.25 MG TAB PO PRN (21:07)
[2018-03-11] MEDS ORDERED: PANTOPRAZOLE SODIUM TAB 40 MG PO ONE (02:19)
[2018-03-11] MEDS: SUCRALFATE 1 GM/10 ML 1 GM UD PO SCH ×4 (06:44→21:26)
[2018-03-11] MEDS: PANTOPRAZOLE SODIUM TAB 40 MG PO SCH (06:44)
[2018-03-11] MEDS ORDERED: NON-FORMULARY MEDICATION 1 EA MIS (Tiotropium Bromide Monohydrate [Spiriva Respimat] 2 PUF IN SCH (08:00)
[2018-03-11] MEDS: BUDESONIDE NEBS 0.5 MG/2 ML VIAL NEB SCH ×2 (08:05→19:58)
[2018-03-11] MEDS: IPRATROPIUM/ALBUTEROL 3 ML VIAL NEB SCH ×4 (08:05→19:58)
[2018-03-11] MEDS: ARFORMOTEROL TARTRATE 15 MCG/2 ML NEB NEB SCH ×2 (08:05→19:57)
[2018-03-11] MEDS: NON-FORMULARY MEDICATION 1 EA MIS (Tiotropium Bromide Monohydrate [Spiriva Respimat] 2 PUF IN SCH (08:05)
[2018-03-11] MEDS ORDERED: NON-FORMULARY MEDICATION 1 EA MIS (Duloxetine Hcl [Cymbalta] 60 MG) PO SCH (09:00)
[2018-03-11] MEDS ORDERED: FEXOFENADINE HCL 180 MG PO SCH (09:00)
[2018-03-11] MEDS ORDERED: SENNOSIDES 8.6 MG TAB PO SCH ×3 (09:00→19:00)
[2018-03-11] MEDS ORDERED: MEGESTROL ACETATE SUSP 400 MG/10 ML UD PO SCH (09:00)
[2018-03-11] MEDS ORDERED: MULTIPLE VITAMINS W/ MINERALS 1 EA TAB PO SCH (09:00)
[2018-03-11] MEDS ORDERED: LORATADINE 10 MG TAB PO SCH ×2 (09:00)
[2018-03-11] MEDS ORDERED: DILTIAZEM HCL PO SCH (09:00)
[2018-03-11] MEDS: DOCUSATE SODIUM 100 MG CAP PO SCH (09:04)
[2018-03-11] MEDS: DULoxetine HCL 30 MG CAP PO SCH (09:04)
[2018-03-11] MEDS: FUROSEMIDE 40 MG TAB PO SCH (09:04)
[2018-03-11] MEDS: MULTIPLE VITAMINS W/ MINERALS 1 EA TAB PO SCH (09:04)
[2018-03-11] MEDS: METOPROLOL SUCCINATE XL 50 MG TAB PO SCH ×2 (09:05→21:27)
[2018-03-11] MEDS: TAMSULOSIN 0.4 MG CAP PO SCH (09:05)
[2018-03-11] MEDS: BIFIDOBACTERIUM INFANTIS 4 MG CAP PO SCH (09:05)
[2018-03-11] MEDS: CARBAMAZEPINE 400 MG PO SCH ×2 (09:05→21:27)
[2018-03-11] MEDS: APIXABAN 2.5 MG TAB PO SCH ×2 (09:05→21:26)
[2018-03-11] MEDS: diltiaZEM HCL CD 180 MG CAP PO SCH (09:05)
[2018-03-11] MEDS: MEGESTROL ACETATE SUSP 400 MG/10 ML UD PO SCH (09:06)
[2018-03-11] MEDS: FEXOFENADINE HCL 180 MG PO SCH (09:07)
[2018-03-11] MEDS: POLYETHYLENE GLYCOL 3350 17 GM PCKT PO SCH ×2 (09:08→21:27)
[2018-03-11] MEDS: DUTASTERIDE 0.5 MG CAP PO SCH (09:16)
[2018-03-11] MEDS: levoFLOXacin 500 MG TAB PO SCH (15:32)
[2018-03-11] MEDS: ACETAMINOPHEN 500 MG TAB PO PRN (17:55)
[2018-03-11] MEDS ORDERED: ALPRAZolam 0.5 MG TAB ONE (19:44)
[2018-03-11] MEDS: SIMVASTATIN 20 MG TAB PO SCH (21:26)
[2018-03-11] MEDS: ALPRAZolam 0.25 MG TAB PO PRN (21:28)
[2018-03-12] MEDS: PANTOPRAZOLE SODIUM TAB 40 MG PO SCH (06:30)
[2018-03-12] MEDS: SUCRALFATE 1 GM/10 ML 1 GM UD PO SCH ×4 (06:30→20:40)
[2018-03-12] MEDS: FEXOFENADINE HCL 180 MG PO SCH (08:03)
[2018-03-12] MEDS: MEGESTROL ACETATE SUSP 400 MG/10 ML UD PO SCH (08:03)
[2018-03-12] MEDS: CARBAMAZEPINE 400 MG PO SCH ×2 (08:04→20:40)
[2018-03-12] MEDS: FUROSEMIDE 40 MG TAB PO SCH (08:04)
[2018-03-12] MEDS: DULoxetine HCL 30 MG CAP PO SCH (08:04)
[2018-03-12] MEDS: METOPROLOL SUCCINATE XL 50 MG TAB PO SCH ×2 (08:04→20:41)
[2018-03-12] MEDS: DOCUSATE SODIUM 100 MG CAP PO SCH (08:05)
[2018-03-12] MEDS: diltiaZEM HCL CD 180 MG CAP PO SCH (08:05)
[2018-03-12] MEDS: DUTASTERIDE 0.5 MG CAP PO SCH (08:05)
[2018-03-12] MEDS: BIFIDOBACTERIUM INFANTIS 4 MG CAP PO SCH (08:05)
[2018-03-12] MEDS: MULTIPLE VITAMINS W/ MINERALS 1 EA TAB PO SCH (08:05)
[2018-03-12] MEDS: TAMSULOSIN 0.4 MG CAP PO SCH (08:05)
[2018-03-12] MEDS: APIXABAN 2.5 MG TAB PO SCH ×2 (08:05→20:41)
[2018-03-12] MEDS: POLYETHYLENE GLYCOL 3350 17 GM PCKT PO SCH ×2 (08:06→20:41)
[2018-03-12] MEDS: ARFORMOTEROL TARTRATE 15 MCG/2 ML NEB NEB SCH ×2 (08:45→20:17)
[2018-03-12] MEDS: BUDESONIDE NEBS 0.5 MG/2 ML VIAL NEB SCH ×2 (08:45→20:17)
[2018-03-12] MEDS: IPRATROPIUM/ALBUTEROL 3 ML VIAL NEB SCH ×4 (08:45→20:17)
[2018-03-12] MEDS: NON-FORMULARY MEDICATION 1 EA MIS (Tiotropium Bromide Monohydrate [Spiriva Respimat] 2 PUF IN SCH (08:46)
[2018-03-12] MEDS: levoFLOXacin 500 MG TAB PO SCH (15:34)
[2018-03-12] MEDS ORDERED: ALPRAZolam 0.5 MG TAB ONE (20:27)
[2018-03-12] MEDS: SIMVASTATIN 20 MG TAB PO SCH (20:42)
[2018-03-12] MEDS: ALPRAZolam 0.25 MG TAB PO PRN (20:43)
[2018-03-12] MEDS: ACETAMINOPHEN 500 MG TAB PO PRN (20:46)
[2018-03-13] MEDS: SUCRALFATE 1 GM/10 ML 1 GM UD PO SCH ×4 (06:43→20:29)
[2018-03-13] MEDS: PANTOPRAZOLE SODIUM TAB 40 MG PO SCH (06:43)
[2018-03-13] MEDS: diltiaZEM HCL CD 180 MG CAP PO SCH (08:02)
[2018-03-13] MEDS: MULTIPLE VITAMINS W/ MINERALS 1 EA TAB PO SCH (08:02)
[2018-03-13] MEDS: DULoxetine HCL 30 MG CAP PO SCH (08:02)
[2018-03-13] MEDS: DUTASTERIDE 0.5 MG CAP PO SCH (08:02)
[2018-03-13] MEDS: TAMSULOSIN 0.4 MG CAP PO SCH (08:03)
[2018-03-13] MEDS: APIXABAN 2.5 MG TAB PO SCH ×2 (08:03→20:29)
[2018-03-13] MEDS: METOPROLOL SUCCINATE XL 50 MG TAB PO SCH ×2 (08:03→20:29)
[2018-03-13] MEDS: FUROSEMIDE 40 MG TAB PO SCH (08:03)
[2018-03-13] MEDS: DOCUSATE SODIUM 100 MG CAP PO SCH (08:03)
[2018-03-13] MEDS: BIFIDOBACTERIUM INFANTIS 4 MG CAP PO SCH (08:03)
[2018-03-13] MEDS: POLYETHYLENE GLYCOL 3350 17 GM PCKT PO SCH ×2 (08:03→20:31)
[2018-03-13] MEDS: CARBAMAZEPINE 400 MG PO SCH ×2 (08:06→20:29)
[2018-03-13] MEDS: FEXOFENADINE HCL 180 MG PO SCH (08:07)
[2018-03-13] MEDS: MEGESTROL ACETATE SUSP 400 MG/10 ML UD PO SCH (08:07)
[2018-03-13] MEDS: ARFORMOTEROL TARTRATE 15 MCG/2 ML NEB NEB SCH ×2 (08:59→20:28)
[2018-03-13] MEDS: BUDESONIDE NEBS 0.5 MG/2 ML VIAL NEB SCH ×2 (08:59→20:28)
[2018-03-13] MEDS: NON-FORMULARY MEDICATION 1 EA MIS (Tiotropium Bromide Monohydrate [Spiriva Respimat] 2 PUF IN SCH (08:59)
[2018-03-13] MEDS: IPRATROPIUM/ALBUTEROL 3 ML VIAL NEB SCH ×4 (08:59→20:28)
[2018-03-13] MEDS: ACETAMINOPHEN 500 MG TAB PO PRN ×2 (10:33→19:35)
[2018-03-13] MEDS: levoFLOXacin 500 MG TAB PO SCH (15:34)
[2018-03-13] MEDS: SIMVASTATIN 20 MG TAB PO SCH (20:29)
[2018-03-14] MEDS: SUCRALFATE 1 GM/10 ML 1 GM UD PO SCH ×4 (06:27→20:33)
[2018-03-14] MEDS: PANTOPRAZOLE SODIUM TAB 40 MG PO SCH (06:27)
[2018-03-14] MEDS: IPRATROPIUM/ALBUTEROL 3 ML VIAL NEB SCH ×4 (07:43→20:39)
[2018-03-14] MEDS: BUDESONIDE NEBS 0.5 MG/2 ML VIAL NEB SCH ×2 (07:43→20:38)
[2018-03-14] MEDS: NON-FORMULARY MEDICATION 1 EA MIS (Tiotropium Bromide Monohydrate [Spiriva Respimat] 2 PUF IN SCH (07:43)
[2018-03-14] MEDS: ARFORMOTEROL TARTRATE 15 MCG/2 ML NEB NEB SCH ×2 (07:43→20:38)
[2018-03-14] MEDS: DUTASTERIDE 0.5 MG CAP PO SCH (09:41)
[2018-03-14] MEDS: APIXABAN 2.5 MG TAB PO SCH ×2 (09:41→20:33)
[2018-03-14] MEDS: MULTIPLE VITAMINS W/ MINERALS 1 EA TAB PO SCH (09:41)
[2018-03-14] MEDS: DULoxetine HCL 30 MG CAP PO SCH (09:41)
[2018-03-14] MEDS: METOPROLOL SUCCINATE XL 50 MG TAB PO SCH ×2 (09:42→20:33)
[2018-03-14] MEDS: DOCUSATE SODIUM 100 MG CAP PO SCH (09:42)
[2018-03-14] MEDS: MEGESTROL ACETATE SUSP 400 MG/10 ML UD PO SCH (09:42)
[2018-03-14] MEDS: FUROSEMIDE 40 MG TAB PO SCH (09:42)
[2018-03-14] MEDS: CARBAMAZEPINE 400 MG PO SCH ×2 (09:42→20:33)
[2018-03-14] MEDS: FEXOFENADINE HCL 180 MG PO SCH (09:42)
[2018-03-14] MEDS: diltiaZEM HCL CD 180 MG CAP PO SCH (09:42)
[2018-03-14] MEDS: BIFIDOBACTERIUM INFANTIS 4 MG CAP PO SCH (09:42)
[2018-03-14] MEDS: POLYETHYLENE GLYCOL 3350 17 GM PCKT PO SCH ×2 (09:43→20:34)
[2018-03-14] MEDS: TAMSULOSIN 0.4 MG CAP PO SCH (11:55)
[2018-03-14] MEDS: levoFLOXacin 500 MG TAB PO SCH (15:50)
[2018-03-14] MEDS: ACETAMINOPHEN 500 MG TAB PO PRN (18:09)
[2018-03-14] MEDS ORDERED: tiZANidine 4 MG TAB PO PRN (18:22)
[2018-03-14] MEDS ORDERED: ALPRAZolam 0.5 MG TAB ONE (19:39)
[2018-03-14] MEDS: SIMVASTATIN 20 MG TAB PO SCH (20:33)
[2018-03-14] MEDS: ALPRAZolam 0.25 MG TAB PO PRN (20:33)
[2018-03-15] MEDS: PANTOPRAZOLE SODIUM TAB 40 MG PO SCH (06:07)
[2018-03-15] MEDS: SUCRALFATE 1 GM/10 ML 1 GM UD PO SCH ×4 (06:07→20:43)
[2018-03-15] MEDS: BUDESONIDE NEBS 0.5 MG/2 ML VIAL NEB SCH ×2 (08:09→20:17)
[2018-03-15] MEDS: NON-FORMULARY MEDICATION 1 EA MIS (Tiotropium Bromide Monohydrate [Spiriva Respimat] 2 PUF IN SCH (08:09)
[2018-03-15] MEDS: IPRATROPIUM/ALBUTEROL 3 ML VIAL NEB SCH ×4 (08:09→20:17)
[2018-03-15] MEDS: ARFORMOTEROL TARTRATE 15 MCG/2 ML NEB NEB SCH ×2 (08:10→20:17)
[2018-03-15] MEDS: MULTIPLE VITAMINS W/ MINERALS 1 EA TAB PO SCH (08:46)
[2018-03-15] MEDS: POLYETHYLENE GLYCOL 3350 17 GM PCKT PO SCH ×2 (08:46→20:45)
[2018-03-15] MEDS: FUROSEMIDE 40 MG TAB PO SCH (08:46)
[2018-03-15] MEDS: METOPROLOL SUCCINATE XL 50 MG TAB PO SCH ×2 (08:46→20:45)
[2018-03-15] MEDS: DUTASTERIDE 0.5 MG CAP PO SCH (08:46)
[2018-03-15] MEDS: APIXABAN 2.5 MG TAB PO SCH ×2 (08:46→20:44)
[2018-03-15] MEDS: BIFIDOBACTERIUM INFANTIS 4 MG CAP PO SCH (08:47)
[2018-03-15] MEDS: TAMSULOSIN 0.4 MG CAP PO SCH (08:47)
[2018-03-15] MEDS: diltiaZEM HCL CD 180 MG CAP PO SCH (08:47)
[2018-03-15] MEDS: MEGESTROL ACETATE SUSP 400 MG/10 ML UD PO SCH (08:47)
[2018-03-15] MEDS: DULoxetine HCL 30 MG CAP PO SCH (08:47)
[2018-03-15] MEDS: FEXOFENADINE HCL 180 MG PO SCH (08:48)
[2018-03-15] MEDS: CARBAMAZEPINE 400 MG PO SCH ×2 (08:48→20:43)
[2018-03-15] MEDS: DOCUSATE SODIUM 100 MG CAP PO SCH (08:49)
[2018-03-15] MEDS: ACETAMINOPHEN 500 MG TAB PO PRN ×2 (14:08→20:44)
[2018-03-15] MEDS: levoFLOXacin 500 MG TAB PO SCH (16:58)
[2018-03-15] MEDS ORDERED: ALPRAZolam 0.5 MG TAB ONE (20:10)
[2018-03-15] MEDS: SIMVASTATIN 20 MG TAB PO SCH (20:44)
[2018-03-15] MEDS: ALPRAZolam 0.25 MG TAB PO PRN (20:45)
[2018-03-16] MEDS: ACETAMINOPHEN 500 MG TAB PO PRN ×3 (05:54→21:46)
[2018-03-16] MEDS: SUCRALFATE 1 GM/10 ML 1 GM UD PO SCH ×4 (06:31→21:31)
[2018-03-16] MEDS: PANTOPRAZOLE SODIUM TAB 40 MG PO SCH (06:31)
--- NOTE | 2018-03-16 07:54 | PN ---
SUPERVISING PHYSICIAN: Hitesh Stahl MD DATE: 03/15/18 SUBJECTIVE: The patient is doing well with his physical therapy. I anticipate he will hopefully be able to discharge later this week if he continues to meet his goals. He continues with catheter complications and I collected additional urine and it is without any significant evidence of infectious process. We will continue full treatment of his course of antibiotics as appropriate. He has had no additional complaints. He has a good appetite and otherwise is progressing well with his physical therapy. OBJECTIVE: VITAL SIGNS: Vital signs stable have been stable. Temperature 97.9 today. Pulse 96. Blood pressure 120/60. Respiratory rate 20. Oxygen saturation 100% on room air. GENERAL: The patient appears to be well-nourished, he is comfortable, in no acute distress. He is in good spirits. CHEST: Lungs clear to auscultation. HEART: Regular rate and rhythm. ABDOMEN: Soft, nontender. Positive bowel sounds. GENITOURINARY: Walton catheter remains in place without any signs of infection. EXTREMITIES: No cyanosis, clubbing or edema. NEUROLOGIC: Alert and oriented times three. LABORATORY: Repeat urinalysis on 03/13/18 showed trace intact blood with 3 to 5 RBCs, but no WBCs, epithelial cells or bacteria and negative for nitrites. ASSESSMENT: 1. Deconditioning due to anemia and chronic illnesses. He is on Swing Bed for strengthening and conditioning with Physical Therapy. 2. Symptomatic anemia secondary to iron-deficiency anemia having received 2 units of packed red blood cells during Acute Care stay. 3. Chronic obstructive pulmonary disease without any signs of exacerbation. He has been on Levaquin. 4. Chronic kidney disease with a baseline creatinine of 1.5. 5. History of congestive heart failure with a diastolic etiology with ejection fraction of 57% on his echocardiogram in 2009. 6. Gastroesophageal reflux disease. 7. Urinary tract infection with a chronic Walton catheter with culture results from 03/05/18 showing Klebsiella aerogenes sensitive to Levaquin with the patient continuing treatment and showing no other signs of urinary tract infection. PLAN: We will continue his Levaquin for full treatment course and continue physical therapy. We will follow him as he continues with his physical therapy and once he meets his goals, hopefully he will be able to discharge back home to assisted living either Thursday or . Again, we will continue to monitor and follow along as needed. #[id number] [facility]
[2018-03-16] MEDS: ARFORMOTEROL TARTRATE 15 MCG/2 ML NEB NEB SCH ×2 (08:29→20:22)
[2018-03-16] MEDS: BUDESONIDE NEBS 0.5 MG/2 ML VIAL NEB SCH ×2 (08:29→20:22)
[2018-03-16] MEDS: IPRATROPIUM/ALBUTEROL 3 ML VIAL NEB SCH ×4 (08:29→20:22)
[2018-03-16] MEDS: NON-FORMULARY MEDICATION 1 EA MIS (Tiotropium Bromide Monohydrate [Spiriva Respimat] 2 PUF IN SCH (08:30)
[2018-03-16] MEDS: diltiaZEM HCL CD 180 MG CAP PO SCH (09:30)
[2018-03-16] MEDS: TAMSULOSIN 0.4 MG CAP PO SCH (09:30)
[2018-03-16] MEDS: BIFIDOBACTERIUM INFANTIS 4 MG CAP PO SCH (09:30)
[2018-03-16] MEDS: CARBAMAZEPINE 400 MG PO SCH ×2 (09:30→21:31)
[2018-03-16] MEDS: FEXOFENADINE HCL 180 MG PO SCH (09:30)
[2018-03-16] MEDS: POLYETHYLENE GLYCOL 3350 17 GM PCKT PO SCH ×2 (09:31→21:32)
[2018-03-16] MEDS: METOPROLOL SUCCINATE XL 50 MG TAB PO SCH ×2 (09:31→21:32)
[2018-03-16] MEDS: APIXABAN 2.5 MG TAB PO SCH ×2 (09:31→21:32)
[2018-03-16] MEDS: DUTASTERIDE 0.5 MG CAP PO SCH (09:31)
[2018-03-16] MEDS: FUROSEMIDE 40 MG TAB PO SCH (09:31)
[2018-03-16] MEDS: MULTIPLE VITAMINS W/ MINERALS 1 EA TAB PO SCH (09:31)
[2018-03-16] MEDS: MEGESTROL ACETATE SUSP 400 MG/10 ML UD PO SCH (09:31)
[2018-03-16] MEDS: DULoxetine HCL 30 MG CAP PO SCH (09:31)
[2018-03-16] MEDS: DOCUSATE SODIUM 100 MG CAP PO SCH (09:37)
[2018-03-16] MEDS: levoFLOXacin 500 MG TAB PO SCH (16:26)
[2018-03-16] MEDS: SIMVASTATIN 20 MG TAB PO SCH (21:33)
[2018-03-16] MEDS ORDERED: ALPRAZolam 0.25 MG TAB ONE (22:39)
[2018-03-16] MEDS: ALPRAZolam 0.25 MG TAB PO PRN (22:41)
[2018-03-17] MEDS: SUCRALFATE 1 GM/10 ML 1 GM UD PO SCH ×4 (06:57→19:45)
[2018-03-17] MEDS: PANTOPRAZOLE SODIUM TAB 40 MG PO SCH (06:57)
[2018-03-17] MEDS: BUDESONIDE NEBS 0.5 MG/2 ML VIAL NEB SCH ×2 (07:35→20:12)
[2018-03-17] MEDS: IPRATROPIUM/ALBUTEROL 3 ML VIAL NEB SCH ×4 (07:35→20:12)
[2018-03-17] MEDS: NON-FORMULARY MEDICATION 1 EA MIS (Tiotropium Bromide Monohydrate [Spiriva Respimat] 2 PUF IN SCH (07:35)
[2018-03-17] MEDS: ARFORMOTEROL TARTRATE 15 MCG/2 ML NEB NEB SCH ×2 (07:35→20:12)
[2018-03-17] MEDS: MULTIPLE VITAMINS W/ MINERALS 1 EA TAB PO SCH (08:00)
[2018-03-17] MEDS: FUROSEMIDE 40 MG TAB PO SCH (08:00)
[2018-03-17] MEDS: BIFIDOBACTERIUM INFANTIS 4 MG CAP PO SCH (08:00)
[2018-03-17] MEDS: DUTASTERIDE 0.5 MG CAP PO SCH (08:00)
[2018-03-17] MEDS: DOCUSATE SODIUM 100 MG CAP PO SCH (08:00)
[2018-03-17] MEDS: POLYETHYLENE GLYCOL 3350 17 GM PCKT PO SCH ×2 (08:00→19:45)
[2018-03-17] MEDS: MEGESTROL ACETATE SUSP 400 MG/10 ML UD PO SCH (08:00)
[2018-03-17] MEDS: METOPROLOL SUCCINATE XL 50 MG TAB PO SCH ×2 (08:00→19:47)
[2018-03-17] MEDS: TAMSULOSIN 0.4 MG CAP PO SCH (08:00)
[2018-03-17] MEDS: DULoxetine HCL 30 MG CAP PO SCH (08:00)
[2018-03-17] MEDS: APIXABAN 2.5 MG TAB PO SCH ×2 (08:00→19:44)
[2018-03-17] MEDS: diltiaZEM HCL CD 180 MG CAP PO SCH (08:00)
[2018-03-17] MEDS: FEXOFENADINE HCL 180 MG PO SCH (08:01)
[2018-03-17] MEDS: CARBAMAZEPINE 400 MG PO SCH ×2 (08:01→21:49)
[2018-03-17] MEDS ORDERED: ALPRAZolam 0.5 MG TAB PO PRN (10:26)
[2018-03-17] MEDS: ACETAMINOPHEN 500 MG TAB PO PRN ×2 (11:28→18:39)
[2018-03-17] MEDS ORDERED: carBAMazepine 200 MG TAB ONE (19:33)
[2018-03-17] MEDS: SIMVASTATIN 20 MG TAB PO SCH (19:44)
[2018-03-18] MEDS: SUCRALFATE 1 GM/10 ML 1 GM UD PO SCH (06:53)
[2018-03-18] MEDS: PANTOPRAZOLE SODIUM TAB 40 MG PO SCH (06:53)
[2018-03-18 07:12] VITALS: TEMP 98.1; O2SAT 96
[2018-03-18 07:14] VITALS: BP 156/71
[2018-03-18] MEDS: BUDESONIDE NEBS 0.5 MG/2 ML VIAL NEB SCH (07:45)
[2018-03-18] MEDS: NON-FORMULARY MEDICATION 1 EA MIS (Tiotropium Bromide Monohydrate [Spiriva Respimat] 2 PUF IN SCH (07:45)
[2018-03-18] MEDS: IPRATROPIUM/ALBUTEROL 3 ML VIAL NEB SCH (07:45)
[2018-03-18] MEDS: ARFORMOTEROL TARTRATE 15 MCG/2 ML NEB NEB SCH (07:45)
[2018-03-18] MEDS: DOCUSATE SODIUM 100 MG CAP PO SCH (08:00)
[2018-03-18] MEDS: MULTIPLE VITAMINS W/ MINERALS 1 EA TAB PO SCH (08:00)
[2018-03-18] MEDS: TAMSULOSIN 0.4 MG CAP PO SCH (08:00)
[2018-03-18] MEDS: FUROSEMIDE 40 MG TAB PO SCH (08:00)
[2018-03-18] MEDS: DUTASTERIDE 0.5 MG CAP PO SCH (08:00)
[2018-03-18] MEDS: diltiaZEM HCL CD 180 MG CAP PO SCH (08:00)
[2018-03-18] MEDS: MEGESTROL ACETATE SUSP 400 MG/10 ML UD PO SCH (08:00)
[2018-03-18] MEDS: METOPROLOL SUCCINATE XL 50 MG TAB PO SCH (08:00)
[2018-03-18] MEDS: DULoxetine HCL 30 MG CAP PO SCH (08:01)
[2018-03-18] MEDS: CARBAMAZEPINE 400 MG PO SCH (08:01)
[2018-03-18] MEDS: APIXABAN 2.5 MG TAB PO SCH (08:01)
[2018-03-18] MEDS: FEXOFENADINE HCL 180 MG PO SCH (08:02)
[2018-03-18] MEDS: BIFIDOBACTERIUM INFANTIS 4 MG CAP PO SCH (08:03)
[2018-03-18] MEDS: POLYETHYLENE GLYCOL 3350 17 GM PCKT PO SCH (08:04)
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
== END 2018-03-18 11:11 | DRG 812 ==
LOC: MS 14:00
PROVIDERS: ADMIT Nurse Practitioner Acute Care; ATTEND Nurse Practitioner Acute Care
DX: D50.9 Iron deficiency anemia, unspecified (principal); I50.42 Chronic combined systolic (congestive) and diastolic (congestive) heart failure; E87.1 Hypo-osmolality and hyponatremia; I13.0 Hypertensive heart and chronic kidney disease with heart failure and stage 1 through stage 4 chronic kidney disease, or unspecified chronic kidney disease; D63.1 Anemia in chronic kidney disease; N18.9 Chronic kidney disease, unspecified; J44.9 Chronic obstructive pulmonary disease, unspecified; K21.9 Gastro-esophageal reflux disease without esophagitis; R33.9 Retention of urine, unspecified; T83.511D Infection and inflammatory reaction due to indwelling urethral catheter, subsequent encounter; Y84.6 Urinary catheterization as the cause of abnormal reaction of the patient, or of later complication, without mention of misadventure at the time of the procedure; E78.5 Hyperlipidemia, unspecified; G50.0 Trigeminal neuralgia

== ENCOUNTER → 2018-03-26 | Outpatient (CLI) | payer MEDICARE, BC | LOC: YCHH 10:24 | PROVIDERS: ATTEND Family Medicine | DX: D50.9 Iron deficiency anemia, unspecified (principal); D64.9 Anemia, unspecified ==

== ENCOUNTER → 2018-04-12 | Outpatient (CLI) | payer MEDICARE, BC | LOC: YCHH 11:51 | PROVIDERS: ATTEND Family Medicine | DX: D64.9 Anemia, unspecified (principal) ==

== ENCOUNTER 2018-04-22 09:09 | Emergency (ER) | payer MEDICARE, BC ==
[2018-04-22 09:18] VITALS: TEMP 98.9; O2SAT 98
--- NOTE | 2018-04-22 09:34 | ED.PDOC ---
History of Present Illness - General Chief Complaint: Problem Time Seen by Provider: 04/22/18 09:15 Source: patient Exam Limitations: no limitations - History of Present Illness Initial Comments: the patient is an 87-year-old male presenting to the emergency room secondary to his Walton catheters ceasing to drain overnight. It is been approximately 12 hours the catheter stopped draining. This Walton catheter has been placed 3-4 weeks. He has been placed secondary tochronic urinary retention. He does have corresponding lower abdominal pain that goes along with the bladder distention. Ultrasound was used to confirm bladder distention before the catheter was changed. Timing/Duration: other - 12 hours Severity: moderate Improving Factors: nothing Worsening Factors: nothing Allergies/Adverse Reactions: Allergies Lisinopril Allergy (Severe, Verified 03/07/18 12:06) Anaphylaxis Clonidine [From Catapres-TTS] Allergy (Verified 03/07/18 12:06) Rash Home Medications: Ambulatory Orders Simvastatin 20 mg PO BEDTIME 11/25/14 Dutasteride [Avodart] 0.5 mg PO DAILY 06/14/15 Nystatin Powder 15 gm TOP BID PRN 06/15/15 Furosemide 40 mg PO DAILY 09/05/15 Pantoprazole Sodium 40 mg PO ACBK 09/05/15 Sucralfate Suspension [Carafate Suspension] 1 gm PO ACHS 09/05/15 Tamsulosin HCl [Flomax] 0.4 mg PO DAILY 09/05/15 hydrALAZINE HCl [HydrALAzine HCl] 50 mg PO TID 09/05/15 Tiotropium [place] Monohydrate [Spiriva Respimat] 2 puff IN RTDAILY #0 12/07/15 Fexofenadine HCl 180 mg PO DAILY 06/04/16 Multiple Vitamins W/ Minerals [Centrum Silver] 1 tab PO DAILY 06/04/16 Apixaban [Eliquis] 2.5 mg PO BID 11/19/17 Budesonide (Inhalation) [Pulmicort] 0.5 mg IN RTBID 11/19/17 Polyethylene Glycol 3350 [Miralax] 17 gm PO BID 11/19/17 ALPRAZolam [Xanax] 0.25 mg PO Q6H PRN 11/25/17 Acetaminophen [Tylenol 8 Hour Arthritis] 2 tablet PO Q8HR 03/07/18 Arformoterol Tartrate Nebs [Brovana Nebs] 15 mcg NEB RTBID 03/07/18 Bifidobacterium Infantis [Align] 4 mg PO DAILY 03/07/18 Carbamazepine [Tegretol-Xr] 400 mg PO BID 03/07/18 Diltiazem HCl Extended Release [Diltiazem HCl ER] 180 mg PO DAILY 03/07/18 Duloxetine HCl [Cymbalta] 60 mg PO DAILY 03/07/18 Ipratropium-Albuterol [Ipratropium [place]/Albut 0.5-2.5 (3) mg/3Ml] 1 perlita IN QID 03/07/18 Metoprolol Succinate [Toprol Xl] 50 mg PO BID 03/07/18 Sennosides [Senokot] 2 tablet PO DAILY 03/07/18 Megestrol Acetate 400 mg PO DAILY 03/09/18 Review of Systems - Review of Systems Review of Systems: 04/22/18 09:33 review of systems is for new symptoms only. Constitutional: States: no symptoms reported EENTM: States: no symptoms reported Respiratory: States: no symptoms reported Cardiology: States: no symptoms reported Gastrointestinal/Abdominal: States: abdominal pain Genitourinary: States: see HPI Musculoskeletal: States: no symptoms reported Skin: States: no symptoms reported Neurological: States: no symptoms reported Endocrine: States: no symptoms reported Hematologic/Lymphatic: States: no symptoms reported All other Systems: No Change from Baseline Past Medical History (General) - Patient Medical History Hx Seizures: No Hx Stroke: No Hx Dementia: No Hx Asthma: Yes Hx of COPD: Yes Hx Cardiac Disorders: - High cholesterol, A fib Hx Congestive Heart Failure: Yes Hx Pacemaker: No Hx Hypertension: Yes Hx Thyroid Disease: No Hx Diabetes: No Hx Gastroesophageal Reflux: Yes Hx Renal Disease: No Hx Cancer: No Hx of HIV: No Hx Hepatitis C: No Hx MRSA: Yes MRSA Source:: Urine - Vaccination History Hx Tetanus, Diphtheria Vaccination: Yes Hx Influenza Vaccination: Yes Hx Pneumococcal Vaccination: Yes - 2013 - Social History Hx Tobacco Use: Yes - Quit around 1994 Hx Chewing Tobacco Use: No Hx Alcohol Use: No Hx Substance Use: No Hx Substance Use Treatment: No Hx Depression: No Hx Physical Abuse: No Hx Emotional Abuse: No Hx Suspected Abuse: No - Activities of Daily Living Snf/Assisted Living (if applicable):: [facility] Family Medical History - Family History Mother Name: Edilia Cabrera Living Status: Age at (years of age): 79 Cause of : Pneumonia Hx Family Hypertension: Yes Hx Family Diabetes: Yes Physical Exam - Physical Exam General Appearance: Alert, Obvious distress Eye Exam: bilateral normal Ears, Nose, Throat: hearing grossly normal, normal pharynx Neck: full range of motion, supple Respiratory: no respiratory distress, no accessory muscle use Cardiovascular/Chest: normal peripheral pulses, no edema, other - regular rate Peripheral Pulses: radial,right: 2+, radial,left: 2+ Gastrointestinal/Abdominal: soft, other - suprapubic discomfort palpation Rectal Exam: deferred Back Exam: no CVA tenderness, no vertebral tenderness Extremity: non-tender, normal inspection, no pedal edema, normal capillary refill Neurologic: manager meat II-XII nml as tested, alert, oriented x 3 Skin Exam: normal color Comments: Vital Signs - 24 hr 04/22/18 09:12 Temperature 98.9 F Pulse Rate [ 97 H Left Radial] Respiratory 20 Rate Blood Pressure 178/78 [Left Arm] O2 Sat by Pulse 98 Oximetry Progress - Progress Progress: 04/22/18 09:34 the patient is an 87-year-old male presenting to the emergency room secondary to urinary retention overnight due to a nondraining Walton catheter. Catheter was changed out and the patient is much more comfortable. Keep routine follow-up with primary care doctor. - Results/Orders Results/Orders: Laboratory Results - last 24 hr 04/22/18 09:48 Urine Color Yellow Urine Appearance Cloudy Urine pH 6.5 Ur Specific [place] 1.015 Urine Protein 100 H Urine Glucose (UA) Negative Urine Ketones Negative Urine Blood Large H Urine Nitrite Negative Urine Bilirubin Negative Urine Urobilinogen 0.2 Ur Leukocyte Esterase Negative Urine RBC Tntc H Urine WBC 0 Ur Epithelial Cells 0 Urine Bacteria 0 Departure - Departure Clinical Impression: Retention of urine Disposition: Discharge to Home or Self Care Condition: Fair Departure Forms: ED Discharge - Pt. Copy, Patient Portal Self Enrollment Instructions: DI for Urinary Retention in Men Diet: regular diet Activity: increase activity as tolerated Referrals: KERA BAY MD [Primary Care Provider] - 1-2 Weeks Home Medications: Ambulatory Orders Simvastatin 20 mg PO BEDTIME 11/25/14 Dutasteride [Avodart] 0.5 mg PO DAILY 06/14/15 Nystatin Powder 15 gm TOP BID PRN 06/15/15 Furosemide 40 mg PO DAILY 09/05/15 Pantoprazole Sodium 40 mg PO ACBK 09/05/15 Sucralfate Suspension [Carafate Suspension] 1 gm PO ACHS 09/05/15 Tamsulosin HCl [Flomax] 0.4 mg PO DAILY 09/05/15 hydrALAZINE HCl [HydrALAzine HCl] 50 mg PO TID 09/05/15 Tiotropium [place] Monohydrate [Spiriva Respimat] 2 puff IN RTDAILY #0 12/07/15 Fexofenadine HCl 180 mg PO DAILY 06/04/16 Multiple Vitamins W/ Minerals [Centrum Silver] 1 tab PO DAILY 06/04/16 Apixaban [Eliquis] 2.5 mg PO BID 11/19/17 Budesonide (Inhalation) [Pulmicort] 0.5 mg IN RTBID 11/19/17 Polyethylene Glycol 3350 [Miralax] 17 gm PO BID 11/19/17 ALPRAZolam [Xanax] 0.25 mg PO Q6H PRN 11/25/17 Acetaminophen [Tylenol 8 Hour Arthritis] 2 tablet PO Q8HR 03/07/18 Arformoterol Tartrate Nebs [Brovana Nebs] 15 mcg NEB RTBID 03/07/18 Bifidobacterium Infantis [Align] 4 mg PO DAILY 03/07/18 Carbamazepine [Tegretol-Xr] 400 mg PO BID 03/07/18 Diltiazem HCl Extended Release [Diltiazem HCl ER] 180 mg PO DAILY 03/07/18 Duloxetine HCl [Cymbalta] 60 mg PO DAILY 03/07/18 Ipratropium-Albuterol [Ipratropium [place]/Albut 0.5-2.5 (3) mg/3Ml] 1 perlita IN QID 03/07/18 Metoprolol Succinate [Toprol Xl] 50 mg PO BID 03/07/18 Sennosides [Senokot] 2 tablet PO DAILY 03/07/18 Megestrol Acetate 400 mg PO DAILY 03/09/18 Additional Instructions: the patient is an 87-year-old male presenting to the emergency room secondary to urinary retention overnight due to a nondraining Walton catheter. Catheter was changed out and the patient is much more comfortable. Keep routine follow-up with primary care doctor.
[2018-04-22 10:36] VITALS: BP 149/78
== END 2018-04-22 10:25 | disposition home or self-care (01) ==
LOC: ER 09:09
DX: R33.9 Retention of urine, unspecified (principal); J44.9 Chronic obstructive pulmonary disease, unspecified; E78.00 Pure hypercholesterolemia, unspecified; I48.91 Unspecified atrial fibrillation; I50.9 Heart failure, unspecified; I11.0 Hypertensive heart disease with heart failure; K21.9 Gastro-esophageal reflux disease without esophagitis; Z87.891 Personal history of nicotine dependence; Z79.899 Other long term (current) drug therapy; Z88.8 Allergy status to other drugs, medicaments and biological substances

== ENCOUNTER → 2018-04-26 | Outpatient (CLI) | payer MEDICARE, BC | LOC: YCHH 11:57 | PROVIDERS: ATTEND Family Medicine | DX: D50.9 Iron deficiency anemia, unspecified (principal) ==

== ENCOUNTER → 2018-05-10 | Outpatient (CLI) | payer MEDICARE, BC | LOC: GMAE 11:37 | PROVIDERS: ATTEND Family Medicine | DX: D64.9 Anemia, unspecified (principal) ==

== ENCOUNTER → 2018-05-17 | Outpatient (CLI) | payer MEDICARE, BC | LOC: YCHH 12:11 | PROVIDERS: ATTEND Family Medicine | DX: D64.9 Anemia, unspecified (principal) ==

== ENCOUNTER → 2018-05-19 | Outpatient (CLI) | payer MEDICARE, BC | LOC: YCHH 09:22 | PROVIDERS: ATTEND Family Medicine | DX: D64.9 Anemia, unspecified (principal) ==

== ENCOUNTER → 2018-05-24 | Outpatient (CLI) | payer MEDICARE, BC | LOC: YCHH 08:54 | PROVIDERS: ATTEND Family Medicine | DX: D50.9 Iron deficiency anemia, unspecified (principal) ==

== ENCOUNTER → 2018-06-10 | Outpatient (CLI) | payer MEDICARE, BC | LOC: YCHH 09:55 | PROVIDERS: ATTEND Family Medicine | DX: D50.9 Iron deficiency anemia, unspecified (principal) ==

== ENCOUNTER 2018-06-18 22:47 | Emergency (ER) | payer MEDICARE, BC ==
--- NOTE | 2018-06-18 23:35 | ED.PDOC ---
History of Present Illness - General Chief Complaint: Neuro Symptoms/Deficits Stated Complaint: numbness of left face and lower arm Time Seen by Provider: 06/18/18 23:14 Source: patient, family Exam Limitations: no limitations - History of Present Illness Initial Comments: Patient comes to ER for numbness of this left face and left forearm. Patient received an iron infusion today and felt fine. He returned to his assisted living facility and noticed about an hour after arrival that his left forearm (arm he had received treatment in) and his L cheek felt numb. This was at about 3 pm. At first they thought maybe it was because the bandage was still on and tight. He loosened the area but his forearm remained numb. His face is feeling better although not completely normal. Patient denies any LOC, headache, vision change or weakness. 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 Patient does have severe arthritis. Timing/Duration: other Severity: mild Improving Factors: nothing Worsening Factors: nothing Associated Symptoms: denies symptoms Allergies/Adverse Reactions: Allergies Lisinopril Allergy (Severe, Verified 04/22/18 10:04) Anaphylaxis Clonidine [From Catapres-TTS] Allergy (Verified 03/07/18 12:06) Rash Home Medications: Ambulatory Orders Simvastatin 20 mg PO BEDTIME 11/25/14 Dutasteride [Avodart] 0.5 mg PO DAILY 06/14/15 Nystatin Powder 15 gm TOP BID PRN 06/15/15 Furosemide 40 mg PO DAILY 09/05/15 Pantoprazole Sodium 40 mg PO ACBK 09/05/15 Sucralfate Suspension [Carafate Suspension] 1 gm PO ACHS 09/05/15 Tamsulosin HCl [Flomax] 0.4 mg PO DAILY 09/05/15 hydrALAZINE HCl [HydrALAzine HCl] 50 mg PO TID 09/05/15 Tiotropium [place] Monohydrate [Spiriva Respimat] 2 puff IN RTDAILY #0 12/07/15 Fexofenadine HCl 180 mg PO DAILY 06/04/16 Multiple Vitamins W/ Minerals [Centrum Silver] 1 tab PO DAILY 06/04/16 Apixaban [Eliquis] 2.5 mg PO BID 11/19/17 Budesonide (Inhalation) [Pulmicort] 0.5 mg IN RTBID 11/19/17 Polyethylene Glycol 3350 [Miralax] 17 gm PO BID 11/19/17 ALPRAZolam [Xanax] 0.25 mg PO Q6H PRN 11/25/17 Acetaminophen [Tylenol 8 Hour Arthritis] 2 tablet PO Q8HR 03/07/18 Arformoterol Tartrate Nebs [Brovana Nebs] 15 mcg NEB RTBID 03/07/18 Bifidobacterium Infantis [Align] 4 mg PO DAILY 03/07/18 Carbamazepine [Tegretol-Xr] 400 mg PO BID 03/07/18 Diltiazem HCl Extended Release [Diltiazem HCl ER] 180 mg PO DAILY 03/07/18 Duloxetine HCl [Cymbalta] 60 mg PO DAILY 03/07/18 Ipratropium-Albuterol [Ipratropium [place]/Albut 0.5-2.5 (3) mg/3Ml] 1 perlita IN QID 03/07/18 Metoprolol Succinate [Toprol Xl] 50 mg PO BID 03/07/18 Sennosides [Senokot] 2 tablet PO DAILY 03/07/18 Review of Systems - Review of Systems Constitutional: States: no symptoms reported. Denies: chills, fever EENTM: States: no symptoms reported. Denies: eye pain, blurred vision, double vision, nose congestion, throat pain Respiratory: States: no symptoms reported. Denies: cough, short of breath Cardiology: States: no symptoms reported. Denies: chest pain Gastrointestinal/Abdominal: States: no symptoms reported. Denies: abdominal pain, nausea Genitourinary: States: no symptoms reported Neurological: States: see HPI Past Medical History (General) - Patient Medical History Hx Seizures: No Hx Stroke: No Hx Dementia: No Hx Asthma: Yes Hx of COPD: Yes Hx Cardiac Disorders: - High cholesterol, A fib Hx Congestive Heart Failure: Yes Hx Pacemaker: No Hx Hypertension: Yes Hx Thyroid Disease: No Hx Diabetes: No Hx Gastroesophageal Reflux: Yes Hx Renal Disease: No Hx Cancer: No Hx of HIV: No Hx Hepatitis C: No Hx MRSA: Yes MRSA Source:: Urine - Vaccination History Hx Tetanus, Diphtheria Vaccination: Yes Hx Influenza Vaccination: Yes Hx Pneumococcal Vaccination: Yes - 2012 - Social History Hx Tobacco Use: Yes - Quit around 1994 Hx Chewing Tobacco Use: No Hx Alcohol Use: No Hx Substance Use: No Hx Substance Use Treatment: No Hx Depression: No Hx Physical Abuse: No Hx Emotional Abuse: No Hx Suspected Abuse: No Family Medical History - Family History Mother Name: Edilia Cabrera Living Status: Age at (years of age): 79 Cause of : Pneumonia Hx Family Hypertension: Yes Hx Family Diabetes: Yes Physical Exam - Physical Exam General Appearance: Alert, Comfortable, No apparent distress Eye Exam: bilateral normal ENT Exam: normal ENT inspection, hearing grossly normal, TMs normal, pharynx normal Neck: non-tender, full range of motion, supple, normal inspection Respiratory: chest non-tender, lungs clear, normal breath sounds, no respiratory distress Cardiovascular/Chest: normal peripheral pulses, regular rate, rhythm, no murmur Peripheral Pulses: radial,right: 2+, radial,left: 2+ Gastrointestinal/Abdominal: normal bowel sounds, non tender, soft 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 <1% of patients will report paresthesias after iron infusion. Explained that small strokes sometimes will not be able to be seen on CT and would suggest close follow up. follow up with PCP on Thursday to discuss if MRI should be performed if symptoms persist. At this time it is improving and there is only the paresthesias no weakness or altered LOC - Results/Orders Results/Orders: CT shows no acute intracranial process Departure - Departure Clinical Impression: Paresthesia Disposition: Discharge to Asst Living Departure Forms: ED Discharge - Pt. Copy, Patient Portal Self Enrollment Referrals: KERA BAY MD [Primary Care Provider] - 1-2 Weeks Home Medications: Ambulatory Orders Simvastatin 20 mg PO BEDTIME 11/25/14 Dutasteride [Avodart] 0.5 mg PO DAILY 06/14/15 Nystatin Powder 15 gm TOP BID PRN 06/15/15 Furosemide 40 mg PO DAILY 09/05/15 Pantoprazole Sodium 40 mg PO ACBK 09/05/15 Sucralfate Suspension [Carafate Suspension] 1 gm PO ACHS 09/05/15 Tamsulosin HCl [Flomax] 0.4 mg PO DAILY 09/05/15 hydrALAZINE HCl [HydrALAzine HCl] 50 mg PO TID 09/05/15 Tiotropium [place] Monohydrate [Spiriva Respimat] 2 puff IN RTDAILY #0 12/07/15 Fexofenadine HCl 180 mg PO DAILY 06/04/16 Multiple Vitamins W/ Minerals [Centrum Silver] 1 tab PO DAILY 06/04/16 Apixaban [Eliquis] 2.5 mg PO BID 11/19/17 Budesonide (Inhalation) [Pulmicort] 0.5 mg IN RTBID 11/19/17 Polyethylene Glycol 3350 [Miralax] 17 gm PO BID 11/19/17 ALPRAZolam [Xanax] 0.25 mg PO Q6H PRN 11/25/17 Acetaminophen [Tylenol 8 Hour Arthritis] 2 tablet PO Q8HR 03/07/18 Arformoterol Tartrate Nebs [Brovana Nebs] 15 mcg NEB RTBID 03/07/18 Bifidobacterium Infantis [Align] 4 mg PO DAILY 03/07/18 Carbamazepine [Tegretol-Xr] 400 mg PO BID 03/07/18 Diltiazem HCl Extended Release [Diltiazem HCl ER] 180 mg PO DAILY 03/07/18 Duloxetine HCl [Cymbalta] 60 mg PO DAILY 03/07/18 Ipratropium-Albuterol [Ipratropium [place]/Albut 0.5-2.5 (3) mg/3Ml] 1 perlita IN QID 03/07/18 Metoprolol Succinate [Toprol Xl] 50 mg PO BID 03/07/18 Sennosides [Senokot] 2 tablet PO DAILY 03/07/18 Additional Instructions: follow up with PCP on Thursday to discuss if MRI should be performed if symptoms persist. Return to ER for worsening of numbness, weakness, or altered LOC
--- NOTE | 2018-06-18 23:41 | CT ---
EXAM: CT head CLINICAL INDICATION: Left-sided facial numbness COMPARISON: 03/07/2018 TECHNIQUE: The CT scan was done using contiguous axial 5 mm sections through the brain. This exam was performed according to our departmental dose-optimization program, which includes automated exposure control, adjustment of the mA and/or kV according to patient size and/or use of iterative reconstruction technique. FINDINGS: There is no midline shift, mass effect, or extraaxial fluid collection. There is no evidence of acute intracranial hemorrhage, mass lesion, or cerebral edema. Diffuse moderate to severe cerebral atrophy is again noted unchanged from the previous examination. Bone window images reveal no evidence of a skull fracture. IMPRESSION: No evidence of an acute intracranial process. 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
[2018-06-18 23:57] VITALS: O2SAT 93
[2018-06-19 00:11] VITALS: BP 139/64; TEMP 98.3
== END 2018-06-18 23:55 ==
LOC: ER 22:47
DX: R20.2 Paresthesia of skin (principal); J44.9 Chronic obstructive pulmonary disease, unspecified; E78.00 Pure hypercholesterolemia, unspecified; I48.91 Unspecified atrial fibrillation; I50.9 Heart failure, unspecified; I11.0 Hypertensive heart disease with heart failure; K21.9 Gastro-esophageal reflux disease without esophagitis; I25.10 Atherosclerotic heart disease of native coronary artery without angina pectoris; Z87.891 Personal history of nicotine dependence; Z79.899 Other long term (current) drug therapy; Z88.8 Allergy status to other drugs, medicaments and biological substances; Z95.1 Presence of aortocoronary bypass graft

== ENCOUNTER → 2018-06-22 | Outpatient (CLI) | payer MEDICARE, BC | LOC: YCHH 09:40 | PROVIDERS: ATTEND Family Medicine | DX: E11.9 Type 2 diabetes mellitus without complications (principal); D50.9 Iron deficiency anemia, unspecified ==

== ENCOUNTER → 2018-07-06 | Outpatient (CLI) | payer MEDICARE, BC | LOC: YCHH 09:49 | PROVIDERS: ATTEND Family Medicine | DX: D64.9 Anemia, unspecified (principal) ==

== ENCOUNTER → 2018-07-20 | Outpatient (CLI) | payer MEDICARE, BC | LOC: YCHH 14:12 | PROVIDERS: ATTEND Family Medicine | DX: D50.9 Iron deficiency anemia, unspecified (principal) ==

== ENCOUNTER → 2018-08-02 | Outpatient (CLI) | payer MEDICARE, BC | LOC: YCHH 10:22 | PROVIDERS: ATTEND Family Medicine | DX: D64.9 Anemia, unspecified (principal) ==

== ENCOUNTER → 2018-08-09 | Outpatient (CLI) | payer MEDICARE, BC | LOC: YCHH 12:07 | PROVIDERS: ATTEND Family Medicine | DX: D64.9 Anemia, unspecified (principal) ==

== ENCOUNTER 2018-08-12 05:28 | Day surgery (SDC) | payer MEDICARE, BC ==
[2018-08-12] MEDS ORDERED: LIDOCAINE 1% 10 ML VIAL INJ ONE (07:00)
[2018-08-12] MEDS ORDERED: PROPOFOL 200 MG/20 ML VIAL IV ONE (07:00)
[2018-08-12] MEDS ORDERED: LACTATED RINGERS 1,000 ML ONE (07:27)
[2018-08-12] MEDS ORDERED: SODIUM CHL 0.9% 100ML MINI-BAG 100 ML IVPB ONE (07:27)
[2018-08-12] MEDS ORDERED: ceFAZolin SODIUM 1 GM VIAL ONE (07:28)
[2018-08-12] MEDS ORDERED: SODIUM BICARBONATE VIAL 50 MEQ/50 ML VIAL ONE (08:30)
[2018-08-12] MEDS ORDERED: LIDOCAINE 1% 50 ML VIAL INJ ONE (08:30)
[2018-08-12] MEDS ORDERED: SODIUM CHLORIDE 0.9% 50 ML VIAL ONE (08:31)
[2018-08-12] MEDS ORDERED: HEPARIN SODIUM 100 U/ML 5 ML SYG IV ONE (08:31)
[2018-08-12] MEDS ORDERED: MIDAZOLAM INJ 2 MG/2 ML VIAL ONE (08:34)
[2018-08-12] MEDS ORDERED: fentaNYL CITRATE INJ 50 MCG/ML AMP ONE (08:34)
[2018-08-12] MEDS ORDERED: KETAMINE HCL 100 MG/ML VIAL ONE (09:06)
--- NOTE | 2018-08-12 10:35 | OP ---
DATE OF PROCEDURE: 08/12/18 PREOPERATIVE DIAGNOSIS: 1. Poor peripheral vascular access. 2. Chronic anemia requiring transfusion. POSTOPERATIVE DIAGNOSIS: 1. Poor peripheral vascular access. 2. Chronic anemia requiring transfusion. PROCEDURE: 1. Insertion of right subclavian venous access port using fluoroscopy. SURGEON: Jacob Roy MD. ORDER PROCESSING MANAGER: None. ANESTHESIA: Local infiltration of 1% lidocaine with bicarb and IV sedation by Anesthesia. INDICATION: The patient is an 88-year-old male who has required multiple transfusions for an uncertain etiology at this point. They have significant trouble with peripheral vascular access and I have been asked to provide central vascular access with a port. The risks, benefits and alternatives to the procedure were discussed and accepted. FINDINGS: Fluoroscopy revealed the guidewire and then the catheter in good position. A stat portable chest x-ray is post procedure is pending. PROCEDURE: After the patient was brought to the Surgical Suite and placed in the supine position, his upper chest was prepped and draped in the usual sterile manner. A surgical time-out was taken. At this point, local infiltration with anesthesia was obtained in the infraclavicular area. The 22-gauge needle was introduced under the clavicle and venous blood was aspirated. The 18-gauge thin wall needle was introduced in the same direction. Venous blood was aspirated. The guidewire was introduced and I was unable to pass. Again, the needle was readjusted and at this point, the catheter was able to be advanced approximately 30 cm from the skin without cardiac ectopy. At this point, a towel was placed over the field and fluoroscopy was used to identify the guidewire in good position. At this point, a stab wound was made over the guidewire and a port pocket was formed in the usual manner with local infiltration of anesthesia, sharp knife and then electrocautery. The port was introduced into the port pocket and sutured in place with two 3-0 Prolene simple sutures. When this was done, the catheter was tunneled from the port pocket to the insertion site and the tunneler was removed. At this point, the catheter was cut to appropriate length. The dilator introducer was introduced over the guidewire. The guidewire and dilator were removed. The catheter was introduced through the introducer and the introducer was removed in the usual manner. At this point, pressure was held and good hemostasis was noted. A towel was placed over the field and, again, fluoroscopy was used to identify the catheter in good position. At this point, the subcutaneous tissues were reapproximated with interrupted 3-0 Vicryl sutures and the skin edges were approximated with 4-0 Vicryl subcuticular sutures, benzoin and Steri-Strips. Sterile pressure dressing was applied. The patient tolerated the procedure well and was taken back to the Ambulatory Unit. Stat portable chest x-ray was ordered. #[id number] MTDD
--- NOTE | 2018-08-12 10:55 | RAD ---
EXAM DESCRIPTION: Chest,1 View CLINICAL HISTORY: POST OP PORT PLACEMENT VERIFICATION COMPARISON: March 02, 2018. FINDINGS: Single frontal portable view the thorax was acquired A right chest wall Mediport has been placed via subclavian approach with catheter tip projecting in satisfactory position. Decreased inspiration is noted with bronchovascular crowding. Cardiac silhouette remains enlarged. Large hiatal hernia is noted. No acute airspace disease. Remote surgical changes of the mediastinum. No pneumothorax. IMPRESSION: Satisfactory position of the Mediport. No postprocedure complication. Electronically signed by: Harley Johns MD 08/12/2018 10:52 AM CDT
[2018-08-12 11:33] VITALS: BP 132/58; TEMP 97.1; O2SAT 96
--- NOTE | 2018-08-12 22:04 | RAD ---
EXAM DESCRIPTION: Fluoroscopy Up to 1Hr CLINICAL HISTORY: 88 years Male, INSERTION SUBCLAVIAN VENOUS ACCESS PORT COMPARISON: Chest radiograph 03/10/2018. IMPRESSION: Multiple intraoperative fluoroscopic images were saved for the benefit of the surgeon. Right chest wall port is in place with its subclavian catheter present. Please refer to procedural report for full details. Please refer to follow chest radiograph. Fluoroscopy time: 12 seconds Fluoroscopic images: 1 Electronically signed by: Charlie Dominguez MD 08/12/2018 10:01 PM CDT
== END 2018-08-12 11:18 | disposition home or self-care (01) ==
LOC: AMB 05:28
PROVIDERS: ATTEND Surgery
DX: D50.9 Iron deficiency anemia, unspecified (principal); J44.9 Chronic obstructive pulmonary disease, unspecified; I25.10 Atherosclerotic heart disease of native coronary artery without angina pectoris; I10 Essential (primary) hypertension; G50.0 Trigeminal neuralgia; Z95.1 Presence of aortocoronary bypass graft; Z87.891 Personal history of nicotine dependence; Z88.8 Allergy status to other drugs, medicaments and biological substances; Z79.01 Long term (current) use of anticoagulants; Z79.82 Long term (current) use of aspirin; Z79.899 Other long term (current) drug therapy
CPT/HCPCS: 00532; 36561; 71045; 76000; A4216; C1788; J0690; J1642; J2250; J3010; J3490; J7050; J7120

== ENCOUNTER → 2018-08-23 | Outpatient (CLI) | payer MEDICARE, BC | LOC: YCHH 11:57 | PROVIDERS: ATTEND Family Medicine | DX: D64.9 Anemia, unspecified (principal) ==

== ENCOUNTER → 2018-09-20 | Outpatient (CLI) | payer MEDICARE, BC | LOC: YCHH 09:23 | PROVIDERS: ATTEND Family Medicine | DX: D64.9 Anemia, unspecified (principal); E11.9 Type 2 diabetes mellitus without complications ==

== ENCOUNTER → 2018-09-28 | Outpatient (CLI) | payer MEDICARE, BC | LOC: YCHH 12:01 | PROVIDERS: ATTEND Family Medicine | DX: E03.9 Hypothyroidism, unspecified (principal); Z13.220 Encounter for screening for lipoid disorders ==

== ENCOUNTER → 2018-10-28 | Outpatient (CLI) | payer MEDICARE, BC | LOC: GMAE 14:26 | PROVIDERS: ATTEND Family Medicine | DX: D63.1 Anemia in chronic kidney disease (principal) ==

== ENCOUNTER → 2018-11-01 | Outpatient (CLI) | payer MEDICARE, BC | LOC: YCHH 13:48 | PROVIDERS: ATTEND Family Medicine | DX: D64.9 Anemia, unspecified (principal) ==

== ENCOUNTER → 2018-11-04 | Outpatient (CLI) | payer MEDICARE, BC | LOC: YCHH 09:47 | PROVIDERS: ATTEND Family Medicine | DX: D64.9 Anemia, unspecified (principal) ==

== ENCOUNTER → 2018-11-15 | Outpatient (CLI) | payer MEDICARE, BC | LOC: YCHH 09:38 | PROVIDERS: ATTEND Family Medicine | DX: D50.9 Iron deficiency anemia, unspecified (principal) ==

== ENCOUNTER → 2018-11-24 | Outpatient (CLI) | payer MEDICARE, BC | LOC: YCHH 11:59 | PROVIDERS: ATTEND Family Medicine | DX: D64.9 Anemia, unspecified (principal) ==

== ENCOUNTER → 2018-11-29 | Outpatient (CLI) | payer MEDICARE, BC | LOC: YCHH 09:54 | PROVIDERS: ATTEND Family Medicine | DX: D64.9 Anemia, unspecified (principal) ==

== ENCOUNTER 2018-12-13 10:57 | Emergency (ER) | payer MEDICARE, BC ==
[2018-12-13 11:16] VITALS: TEMP 96.4
--- NOTE | 2018-12-13 11:51 | ED.PDOC ---
History of Present Illness - General Chief Complaint: General Stated Complaint: tired,weak,anemic Time Seen by Provider: 12/13/18 11:46 Additional Information: Pt presents for elective transfusion. Pt w chronic anemia for years, receives transfusion every 2 weeks for generalized weakness. HGB 6.9 by home health. Pt denies any GI bleeding/ melena/ hematuria/ hematemesis. He feels o/w nl and is here to get T&C and then to be transfused tomorrow in the infusion center. - History of Present Illness Allergies/Adverse Reactions: Allergies Lisinopril Allergy (Severe, Verified 10/29/18 14:21) Anaphylaxis Clonidine [From Catapres-TTS] Allergy (Verified 10/29/18 14:21) Rash Home Medications: Ambulatory Orders Simvastatin 20 mg PO BEDTIME 11/25/14 Dutasteride [Avodart] 0.5 mg PO DAILY 06/14/15 Nystatin Powder 15 gm TOP BID PRN 06/15/15 Furosemide 40 mg PO DAILY 09/05/15 Pantoprazole Sodium 40 mg PO ACBK 09/05/15 Sucralfate Suspension [Carafate Suspension] 1 gm PO ACHS 09/05/15 Tamsulosin HCl [Flomax] 0.4 mg PO DAILY 09/05/15 hydrALAZINE HCl [HydrALAzine HCl] 50 mg PO TID 09/05/15 Tiotropium [place] Monohydrate [Spiriva Respimat] 2 puff IN RTDAILY #0 12/07/15 Fexofenadine HCl 180 mg PO DAILY 06/04/16 Multiple Vitamins W/ Minerals [Centrum Silver] 1 tab PO DAILY 06/04/16 Apixaban [Eliquis] 2.5 mg PO BID 11/19/17 Budesonide (Inhalation) [Pulmicort] 0.5 mg IN RTBID 11/19/17 Polyethylene Glycol 3350 [Miralax] 17 gm PO BID 11/19/17 ALPRAZolam [Xanax] 0.25 mg PO Q6H PRN 11/25/17 Acetaminophen [Tylenol 8 Hour Arthritis] 2 tablet PO Q8HR 03/07/18 Arformoterol Tartrate Nebs [Brovana Nebs] 15 mcg NEB RTBID 03/07/18 Bifidobacterium Infantis [Align] 4 mg PO DAILY 03/07/18 Carbamazepine [Tegretol-Xr] 400 mg PO BID 03/07/18 Diltiazem HCl Extended Release [Diltiazem HCl ER] 180 mg PO DAILY 03/07/18 Duloxetine HCl [Cymbalta] 60 mg PO DAILY 03/07/18 Ipratropium-Albuterol [Ipratropium [place]/Albut 0.5-2.5 (3) mg/3Ml] 1 perlita IN QID 03/07/18 Metoprolol Succinate [Toprol Xl] 50 mg PO BID 03/07/18 Sennosides [Senokot] 2 tablet PO DAILY 03/07/18 Review of Systems - Review of Systems Constitutional: States: weakness - generalized, mild EENTM: States: no symptoms reported Respiratory: States: no symptoms reported. Denies: orthopnea, short of breath Cardiology: States: no symptoms reported. Denies: see HPI, chest pain, palpitations Gastrointestinal/Abdominal: States: no symptoms reported. Denies: abdominal pain, vomiting Genitourinary: States: no symptoms reported. Denies: hematuria Musculoskeletal: States: no symptoms reported. Denies: back pain Skin: States: no symptoms reported. Denies: change in color Endocrine: States: no symptoms reported Hematologic/Lymphatic: States: no symptoms reported Past Medical History (General) - Patient Medical History Hx Seizures: No Hx Stroke: No Hx Dementia: No Hx Asthma: Yes Hx of COPD: Yes Hx Cardiac Disorders: Yes Hx Congestive Heart Failure: Yes Hx Pacemaker: No Hx Hypertension: Yes Hx Thyroid Disease: No Hx Diabetes: No Hx Gastroesophageal Reflux: Yes Hx Renal Disease: Yes Hx Cancer: No Hx of HIV: No Hx Hepatitis C: No Hx MRSA: Yes MRSA Source:: Urine Surgical History: coronary bypass surgery - Vaccination History Hx Tetanus, Diphtheria Vaccination: Yes Hx Influenza Vaccination: Yes Hx Pneumococcal Vaccination: Yes - Social History Hx Tobacco Use: Yes Hx Chewing Tobacco Use: No Hx Alcohol Use: No Hx Substance Use: No Hx Substance Use Treatment: No Hx Depression: No Hx Physical Abuse: No Hx Emotional Abuse: No Hx Suspected Abuse: No Family Medical History - Family History Mother Name: Edilia Cabrera Living Status: Age at (years of age): 79 Cause of : Pneumonia Hx Family Hypertension: Yes Hx Family Diabetes: Yes Physical Exam - Physical Exam General Appearance: Alert, Comfortable, No apparent distress Ears, Nose, Throat: normal pharynx Neck: non-tender, full range of motion Respiratory: chest non-tender, normal breath sounds Cardiovascular/Chest: normal peripheral pulses, regular rate, rhythm, no murmur Peripheral Pulses: radial,right: 2+, radial,left: 2+ Gastrointestinal/Abdominal: normal bowel sounds, non tender, soft Rectal Exam: deferred Back Exam: normal inspection Extremity: normal range of motion 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 No new findings today. Will T&C and pt to be transfused tomorrow in the infusion center per pt's daughter. Dr. Bay will arrange as he typically does, per daughter. Departure - Departure Clinical Impression: Anemia, chronic disease Time of Disposition: 12:03 Disposition: Discharge to Home or Self Care Condition: Fair Departure Forms: ED Discharge - Pt. Copy, Patient Portal Self Enrollment Diet: resume usual diet Referrals: KERA BAY MD [Primary Care Provider] - 1-2 Weeks Home Medications: Ambulatory Orders Simvastatin 20 mg PO BEDTIME 11/25/14 Dutasteride [Avodart] 0.5 mg PO DAILY 06/14/15 Nystatin Powder 15 gm TOP BID PRN 06/15/15 Furosemide 40 mg PO DAILY 09/05/15 Pantoprazole Sodium 40 mg PO ACBK 09/05/15 Sucralfate Suspension [Carafate Suspension] 1 gm PO ACHS 09/05/15 Tamsulosin HCl [Flomax] 0.4 mg PO DAILY 09/05/15 hydrALAZINE HCl [HydrALAzine HCl] 50 mg PO TID 09/05/15 Tiotropium [place] Monohydrate [Spiriva Respimat] 2 puff IN RTDAILY #0 12/07/15 Fexofenadine HCl 180 mg PO DAILY 06/04/16 Multiple Vitamins W/ Minerals [Centrum Silver] 1 tab PO DAILY 06/04/16 Apixaban [Eliquis] 2.5 mg PO BID 11/19/17 Budesonide (Inhalation) [Pulmicort] 0.5 mg IN RTBID 11/19/17 Polyethylene Glycol 3350 [Miralax] 17 gm PO BID 11/19/17 ALPRAZolam [Xanax] 0.25 mg PO Q6H PRN 11/25/17 Acetaminophen [Tylenol 8 Hour Arthritis] 2 tablet PO Q8HR 03/07/18 Arformoterol Tartrate Nebs [Brovana Nebs] 15 mcg NEB RTBID 03/07/18 Bifidobacterium Infantis [Align] 4 mg PO DAILY 03/07/18 Carbamazepine [Tegretol-Xr] 400 mg PO BID 03/07/18 Diltiazem HCl Extended Release [Diltiazem HCl ER] 180 mg PO DAILY 03/07/18 Duloxetine HCl [Cymbalta] 60 mg PO DAILY 03/07/18 Ipratropium-Albuterol [Ipratropium [place]/Albut 0.5-2.5 (3) mg/3Ml] 1 perlita IN QID 03/07/18 Metoprolol Succinate [Toprol Xl] 50 mg PO BID 03/07/18 Sennosides [Senokot] 2 tablet PO DAILY 03/07/18 Additional Instructions: Call Dr. Bay in the morning to arrange for followup at the transfusion center tomorrow for the blood typed and crossed today. Return to the ER for worsening symptoms.
[2018-12-13 12:14] VITALS: BP 145/80; O2SAT 93
== END 2018-12-13 12:14 | disposition home or self-care (01) ==
LOC: ER 10:57
DX: D63.8 Anemia in other chronic diseases classified elsewhere (principal); N18.9 Chronic kidney disease, unspecified; K21.9 Gastro-esophageal reflux disease without esophagitis; J44.9 Chronic obstructive pulmonary disease, unspecified; I50.9 Heart failure, unspecified; I13.0 Hypertensive heart and chronic kidney disease with heart failure and stage 1 through stage 4 chronic kidney disease, or unspecified chronic kidney disease; Z95.1 Presence of aortocoronary bypass graft; Z87.891 Personal history of nicotine dependence; Z79.899 Other long term (current) drug therapy; Z79.01 Long term (current) use of anticoagulants; Z88.8 Allergy status to other drugs, medicaments and biological substances

== ENCOUNTER → 2018-12-13 | Outpatient (CLI) | payer MEDICARE, BC | LOC: YCHH 08:57 | PROVIDERS: ATTEND Family Medicine | DX: D50.9 Iron deficiency anemia, unspecified (principal); E11.9 Type 2 diabetes mellitus without complications; D64.9 Anemia, unspecified ==

== ENCOUNTER → 2018-12-27 | Outpatient (CLI) | payer MEDICARE, BC | LOC: YCHH 13:51 | PROVIDERS: ATTEND Family Medicine | DX: D50.9 Iron deficiency anemia, unspecified (principal); R30.9 Painful micturition, unspecified ==

== ENCOUNTER → 2019-01-10 | Outpatient (CLI) | payer MEDICARE, BC | LOC: YCHH 09:33 | PROVIDERS: ATTEND Family Medicine | DX: D50.9 Iron deficiency anemia, unspecified (principal); D64.9 Anemia, unspecified ==

== ENCOUNTER → 2019-01-25 | Outpatient (CLI) | payer MEDICARE, BC | LOC: YCHH 11:16 | PROVIDERS: ATTEND Family Medicine | DX: N18.9 Chronic kidney disease, unspecified (principal); D63.1 Anemia in chronic kidney disease; D50.9 Iron deficiency anemia, unspecified ==

== ENCOUNTER → 2019-02-02 | Outpatient (CLI) | payer MEDICARE, BC | LOC: YCHH 16:48 | PROVIDERS: ATTEND Family Medicine | DX: D50.9 Iron deficiency anemia, unspecified (principal); D63.1 Anemia in chronic kidney disease; N39.0 Urinary tract infection, site not specified ==

== ENCOUNTER → 2019-02-07 | Outpatient (CLI) | payer MEDICARE, BC | LOC: YCHH 15:43 | PROVIDERS: ATTEND Family Medicine | DX: D50.9 Iron deficiency anemia, unspecified (principal); N18.9 Chronic kidney disease, unspecified; D63.1 Anemia in chronic kidney disease ==

== ENCOUNTER 2019-02-13 13:36 | Inpatient (IN) | payer MEDICARE, BC ==
--- NOTE | 2019-02-13 15:27 | ED.PDOC ---
History of Present Illness - General Chief Complaint: General Stated Complaint: groin pain and leg swelling Time Seen by Provider: 02/13/19 14:31 - History of Present Illness Initial Comments: c/o whole body aches since 11 am this morning after helping a person to lift up from the ground , no fever or chills or sore throat Improving Factors: nothing Worsening Factors: movement Associated Symptoms: denies symptoms Allergies/Adverse Reactions: Allergies Lisinopril Allergy (Severe, Verified 02/13/19 13:55) Anaphylaxis Clonidine [From Catapres-TTS] Allergy (Verified 02/13/19 13:55) Rash Home Medications: Ambulatory Orders Simvastatin 20 mg PO BEDTIME 11/25/14 Dutasteride [Avodart] 0.5 mg PO DAILY 06/14/15 Nystatin Powder 15 gm TOP BID PRN 06/15/15 Furosemide 40 mg PO DAILY 09/05/15 Pantoprazole Sodium 40 mg PO ACBK 09/05/15 Sucralfate Suspension [Carafate Suspension] 1 gm PO ACHS 09/05/15 Tamsulosin HCl [Flomax] 0.4 mg PO DAILY 09/05/15 hydrALAZINE HCl [HydrALAzine HCl] 50 mg PO TID 09/05/15 Fexofenadine HCl 180 mg PO DAILY 06/04/16 Multiple Vitamins W/ Minerals [Centrum Silver] 1 tab PO DAILY 06/04/16 Apixaban [Eliquis] 2.5 mg PO BID 11/19/17 Budesonide (Inhalation) [Pulmicort] 0.5 mg IN RTBID 11/19/17 Polyethylene Glycol 3350 [Miralax] 17 gm PO BID 11/19/17 ALPRAZolam [Xanax] 1 - 2 mg PO Q6H PRN 11/25/17 Acetaminophen [Tylenol 8 Hour Arthritis] 2 tablet PO Q8HR PRN 03/07/18 Arformoterol Tartrate Nebs [Brovana Nebs] 15 mcg NEB RTBID 03/07/18 Carbamazepine [Tegretol-Xr] 400 mg PO BID 03/07/18 Duloxetine HCl [Cymbalta] 60 mg PO DAILY 03/07/18 Ipratropium-Albuterol [Ipratropium [place]/Albut 0.5-2.5 (3) mg/3Ml] 1 perlita IN QID 03/07/18 Metoprolol Succinate [Toprol Xl] 50 mg PO BID 03/07/18 Sennosides [Senokot] 2 tablet PO DAILY PRN 03/07/18 Bifidobacterium Infantis [Align] 4 mg PO DAILY 12/13/18 Revefenacin [Yupelri] 175 mcg IN DAILY 12/13/18 Review of Systems - Review of Systems Constitutional: States: no symptoms reported EENTM: States: no symptoms reported Respiratory: States: no symptoms reported Cardiology: States: no symptoms reported Gastrointestinal/Abdominal: States: no symptoms reported Genitourinary: States: no symptoms reported Musculoskeletal: States: see HPI Skin: States: no symptoms reported Neurological: States: no symptoms reported Endocrine: States: no symptoms reported Hematologic/Lymphatic: States: no symptoms reported All other Systems: Reviewed and Negative Past Medical History (General) - Patient Medical History Hx Seizures: No Hx Stroke: No Hx Dementia: No Hx Asthma: Yes Hx of COPD: Yes Hx Cardiac Disorders: Yes Hx Congestive Heart Failure: Yes Hx Pacemaker: No Hx Hypertension: Yes Hx Thyroid Disease: No Hx Diabetes: No Hx Gastroesophageal Reflux: Yes Hx Renal Disease: Yes Hx Cancer: No Hx of HIV: No Hx Hepatitis C: No Hx MRSA: Yes MRSA Source:: Urine Surgical History: coronary bypass surgery - Vaccination History Hx Tetanus, Diphtheria Vaccination: Yes Hx Influenza Vaccination: Yes Hx Pneumococcal Vaccination: Yes - Social History Hx Tobacco Use: Yes Hx Chewing Tobacco Use: No Hx Alcohol Use: No Hx Substance Use: No Hx Substance Use Treatment: No Hx Depression: No Hx Physical Abuse: No Hx Emotional Abuse: No Hx Suspected Abuse: No Family Medical History - Family History Mother Name: Edilia Cabrera Living Status: Age at (years of age): 79 Cause of : Pneumonia Hx Family Hypertension: Yes Hx Family Diabetes: Yes Physical Exam - Physical Exam General Appearance: Alert, Comfortable Eye Exam: bilateral normal Ears, Nose, Throat: hearing grossly normal, normal ENT inspection, normal pharynx Neck: non-tender, full range of motion, supple, normal inspection Respiratory: chest non-tender, lungs clear, normal breath sounds, no respiratory distress, no accessory muscle use Cardiovascular/Chest: regular rate, rhythm, no edema, no gallop, no JVD, no murmur Back Exam: normal inspection, no CVA tenderness Extremity: normal range of motion, non-tender, normal inspection Neurologic: no motor/sensory deficits, alert, normal mood/affect, oriented x 3 Skin Exam: normal color Lymphatic: no adenopathy Progress - Progress Progress: 02/13/19 15:28 Pt says that she has taken morphine in the past and had no side effects - EKG/XRAY/CT CT Ordered: No Departure - Departure Clinical Impression: Generalized pain Time of Disposition: 15:28 Disposition: Discharge to Home or Self Care Condition: Fair Departure Forms: ED Discharge - Pt. Copy, Patient Portal Self Enrollment Diet: resume usual diet Activity: increase activity as tolerated, walking as tolerated Referrals: KERA BAY MD [Primary Care Provider] - 1-2 Weeks Home Medications: Ambulatory Orders Simvastatin 20 mg PO BEDTIME 11/25/14 Dutasteride [Avodart] 0.5 mg PO DAILY 06/14/15 Nystatin Powder 15 gm TOP BID PRN 06/15/15 Furosemide 40 mg PO DAILY 09/05/15 Pantoprazole Sodium 40 mg PO ACBK 09/05/15 Sucralfate Suspension [Carafate Suspension] 1 gm PO ACHS 09/05/15 Tamsulosin HCl [Flomax] 0.4 mg PO DAILY 09/05/15 hydrALAZINE HCl [HydrALAzine HCl] 50 mg PO TID 09/05/15 Fexofenadine HCl 180 mg PO DAILY 06/04/16 Multiple Vitamins W/ Minerals [Centrum Silver] 1 tab PO DAILY 06/04/16 Apixaban [Eliquis] 2.5 mg PO BID 11/19/17 Budesonide (Inhalation) [Pulmicort] 0.5 mg IN RTBID 11/19/17 Polyethylene Glycol 3350 [Miralax] 17 gm PO BID 11/19/17 ALPRAZolam [Xanax] 1 - 2 mg PO Q6H PRN 11/25/17 Acetaminophen [Tylenol 8 Hour Arthritis] 2 tablet PO Q8HR PRN 03/07/18 Arformoterol Tartrate Nebs [Brovana Nebs] 15 mcg NEB RTBID 03/07/18 Carbamazepine [Tegretol-Xr] 400 mg PO BID 03/07/18 Duloxetine HCl [Cymbalta] 60 mg PO DAILY 03/07/18 Ipratropium-Albuterol [Ipratropium [place]/Albut 0.5-2.5 (3) mg/3Ml] 1 perilta IN QID 03/07/18 Metoprolol Succinate [Toprol Xl] 50 mg PO BID 03/07/18 Sennosides [Senokot] 2 tablet PO DAILY PRN 03/07/18 Bifidobacterium Infantis [Align] 4 mg PO DAILY 12/13/18 Revefenacin [Yupelri] 175 mcg IN DAILY 12/13/18
[2019-02-13] MEDS ORDERED: diphenhydrAMINE HCL 50 MG/ML VIAL IM ONE (15:29)
--- NOTE | 2019-02-13 15:46 | RAD ---
EXAM DESCRIPTION: Chest,1 View CLINICAL HISTORY: sob COMPARISON: 08/12/2018. FINDINGS: Cardiac silhouette is again mildly enlarged. There is atelectasis and consolidation at the medial left lung base. Mild bilateral pulmonary edema is seen. There are sternotomy wires. Subcutaneous Central catheter tip is at the distal SVC. IMPRESSION: Cardiomegaly and pulmonary edema with small region of consolidation at the medial left lung base. Electronically signed by: Leonel Calix 02/13/2019 3:44 PM [employer]
[2019-02-13] MEDS ORDERED: FUROSEMIDE INJ 40 MG/4 ML VIAL IV ONE ×2 (16:29→17:54)
--- NOTE | 2019-02-13 16:33 | ED.PDOC ---
History of Present Illness - General Chief Complaint: General Stated Complaint: groin pain and leg swelling Time Seen by Provider: 02/13/19 14:31 - History of Present Illness Initial Comments: c/o having R groin pain for 10 days, sharp , more on movement , no trauma or fever or chills c/o B/L increase edema of legs and sob despite taking Lasix , no wheezing or fever or chills or chest pain Improving Factors: nothing Worsening Factors: nothing Associated Symptoms: shortness of breath Allergies/Adverse Reactions: Allergies Lisinopril Allergy (Severe, Verified 02/13/19 13:55) Anaphylaxis Clonidine [From Catapres-TTS] Allergy (Verified 02/13/19 13:55) Rash Home Medications: Ambulatory Orders Simvastatin 20 mg PO BEDTIME 11/25/14 Dutasteride [Avodart] 0.5 mg PO DAILY 06/14/15 Nystatin Powder 15 gm TOP BID PRN 06/15/15 Furosemide 40 mg PO DAILY 09/05/15 Pantoprazole Sodium 40 mg PO ACBK 09/05/15 Sucralfate Suspension [Carafate Suspension] 1 gm PO ACHS 09/05/15 Tamsulosin HCl [Flomax] 0.4 mg PO DAILY 09/05/15 hydrALAZINE HCl [HydrALAzine HCl] 50 mg PO TID 09/05/15 Fexofenadine HCl 180 mg PO DAILY 06/04/16 Multiple Vitamins W/ Minerals [Centrum Silver] 1 tab PO DAILY 06/04/16 Apixaban [Eliquis] 2.5 mg PO BID 11/19/17 Budesonide (Inhalation) [Pulmicort] 0.5 mg IN RTBID 11/19/17 Polyethylene Glycol 3350 [Miralax] 17 gm PO BID 11/19/17 ALPRAZolam [Xanax] 1 - 2 mg PO Q6H PRN 11/25/17 Acetaminophen [Tylenol 8 Hour Arthritis] 2 tablet PO Q8HR PRN 03/07/18 Arformoterol Tartrate Nebs [Brovana Nebs] 15 mcg NEB RTBID 03/07/18 Carbamazepine [Tegretol-Xr] 400 mg PO BID 03/07/18 Duloxetine HCl [Cymbalta] 60 mg PO DAILY 03/07/18 Ipratropium-Albuterol [Ipratropium [place]/Albut 0.5-2.5 (3) mg/3Ml] 1 perlita IN QID 03/07/18 Metoprolol Succinate [Toprol Xl] 50 mg PO BID 03/07/18 Sennosides [Senokot] 2 tablet PO DAILY PRN 03/07/18 Bifidobacterium Infantis [Align] 4 mg PO DAILY 12/13/18 Revefenacin [Yupelri] 175 mcg IN DAILY 12/13/18 Review of Systems - Review of Systems Constitutional: States: no symptoms reported EENTM: States: no symptoms reported Respiratory: States: no symptoms reported Cardiology: States: see HPI Gastrointestinal/Abdominal: States: no symptoms reported Genitourinary: States: no symptoms reported Musculoskeletal: States: no symptoms reported Skin: States: no symptoms reported Neurological: States: no symptoms reported Endocrine: States: no symptoms reported Hematologic/Lymphatic: States: no symptoms reported Past Medical History (General) - Patient Medical History Hx Seizures: No Hx Stroke: No Hx Dementia: No Hx Asthma: Yes Hx of COPD: Yes Hx Cardiac Disorders: Yes Hx Congestive Heart Failure: Yes Hx Pacemaker: No Hx Hypertension: Yes Hx Thyroid Disease: No Hx Diabetes: No Hx Gastroesophageal Reflux: Yes Hx Renal Disease: Yes Hx Cancer: No Hx of HIV: No Hx Hepatitis C: No Hx MRSA: Yes MRSA Source:: Urine Surgical History: coronary bypass surgery - Vaccination History Hx Tetanus, Diphtheria Vaccination: Yes Hx Influenza Vaccination: Yes Hx Pneumococcal Vaccination: Yes - Social History Hx Tobacco Use: Yes Hx Chewing Tobacco Use: No Hx Alcohol Use: No Hx Substance Use: No Hx Substance Use Treatment: No Hx Depression: No Hx Physical Abuse: No Hx Emotional Abuse: No Hx Suspected Abuse: No Family Medical History - Family History Mother Name: Edilia Cabrera Living Status: Age at (years of age): 79 Cause of : Pneumonia Hx Family Hypertension: Yes Hx Family Diabetes: Yes Physical Exam - Physical Exam General Appearance: Alert, Comfortable Eye Exam: bilateral normal Ears, Nose, Throat: hearing grossly normal, normal ENT inspection, normal pharynx Neck: full range of motion, supple, normal inspection Respiratory: lungs clear, normal breath sounds Cardiovascular/Chest: regular rate, rhythm, no gallop, no JVD, other - B/l Edema Gastrointestinal/Abdominal: soft, no organomegaly Back Exam: normal inspection, no CVA tenderness Extremity: other - tenderness over the R groin Neurologic: no motor/sensory deficits, alert, normal mood/affect, oriented x 3 Skin Exam: normal color, warm/dry Lymphatic: no adenopathy Progress - EKG/XRAY/CT CT Ordered: No Departure - Departure Clinical Impression: Acute CHF (congestive heart failure), Anemia, Pleural effusion Disposition: Admit Patient Condition: Fair Departure Forms: ED Discharge - Pt. Copy, Patient Portal Self Enrollment Referrals: KERA BAY MD [Primary Care Provider] - 1-2 Weeks Home Medications: Ambulatory Orders Simvastatin 20 mg PO BEDTIME 11/25/14 Dutasteride [Avodart] 0.5 mg PO DAILY 06/14/15 Nystatin Powder 15 gm TOP BID PRN 06/15/15 Furosemide 40 mg PO DAILY 09/05/15 Pantoprazole Sodium 40 mg PO ACBK 09/05/15 Sucralfate Suspension [Carafate Suspension] 1 gm PO ACHS 09/05/15 Tamsulosin HCl [Flomax] 0.4 mg PO DAILY 09/05/15 hydrALAZINE HCl [HydrALAzine HCl] 50 mg PO TID 09/05/15 Fexofenadine HCl 180 mg PO DAILY 06/04/16 Multiple Vitamins W/ Minerals [Centrum Silver] 1 tab PO DAILY 06/04/16 Apixaban [Eliquis] 2.5 mg PO BID 11/19/17 Budesonide (Inhalation) [Pulmicort] 0.5 mg IN RTBID 11/19/17 Polyethylene Glycol 3350 [Miralax] 17 gm PO BID 11/19/17 ALPRAZolam [Xanax] 1 - 2 mg PO Q6H PRN 11/25/17 Acetaminophen [Tylenol 8 Hour Arthritis] 2 tablet PO Q8HR PRN 03/07/18 Arformoterol Tartrate Nebs [Brovana Nebs] 15 mcg NEB RTBID 03/07/18 Carbamazepine [Tegretol-Xr] 400 mg PO BID 03/07/18 Duloxetine HCl [Cymbalta] 60 mg PO DAILY 03/07/18 Ipratropium-Albuterol [Ipratropium [place]/Albut 0.5-2.5 (3) mg/3Ml] 1 perlita IN QID 03/07/18 Metoprolol Succinate [Toprol Xl] 50 mg PO BID 03/07/18 Sennosides [Senokot] 2 tablet PO DAILY PRN 03/07/18 Bifidobacterium Infantis [Align] 4 mg PO DAILY 12/13/18 Revefenacin [Yupelri] 175 mcg IN DAILY 12/13/18
[2019-02-13] MEDS ORDERED: ACETAMINOPHEN 325 MG TAB PO ONE ×2 (17:07→17:54)
[2019-02-13] MEDS ORDERED: ACETAMINOPHEN 325 MG TAB ONE (17:09)
--- NOTE | 2019-02-13 17:19 | HP ---
SUPERVISING PHYSICIAN: Harish Rodas M.D. CHIEF COMPLAINT: Left groin pain as well as leg swelling. HISTORY OF PRESENT ILLNESS: This is an 88 year-old male patient who lives at [facility]. He has a history of chronic anemia and congestive heart failure. He was actually scheduled to have a blood transfusion tomorrow, but he has had left groin pain for about a week. It was a sudden onset. It comes and goes. He also had increased swelling with some shortness of breath over the last 24 hours. Earlier in the week he was treated with some antibiotics by his primary care physician due to his symptoms and a urinalysis that was most likely contaminated, but he was treated due to his symptoms. He came into the Emergency Room today and his initial vital signs showed temperature 98.2, heart rate 85, blood pressure 154/63, respiratory rate 24, O2 sat 92% on room air. Laboratory studies were done. WBCs are 6,300 but hemoglobin was 7.1, hematocrit 23.2. He did have a left shift on his differential. Sodium 132, BUN 30, creatinine 1.33, glucose 127, calcium 7.9. Liver enzymes were within normal limits. BNP was 1,670. Troponin was 0.03. Chest x-ray shows cardiomegaly and pulmonary edema with small region of consolidation in the medial left lung base. I was called for hospital admission. PAST MEDICAL HISTORY: 1. Chronic iron-deficiency anemia. 2. Chronic renal insufficiency with inappropriate erythropoietin secretion contributing to the anemia. 3. Hypertension. 4. Trigeminal neuralgia. 5. Hyperlipidemia. 6. Coronary artery disease. 7. Chronic obstructive pulmonary disease. 8. Congestive heart failure, diastolic in etiology with his last echocardiogram in 2009 that showed an ejection fraction of 57%. PAST SURGICAL HISTORY: 1. Coronary artery bypass graft in 2001. 2. Hernia repair times 2. OUTPATIENT MEDICATIONS: Per the EMR and awaiting verification. ALLERGIES: LISINOPRIL AND CLONIDINE. CODE STATUS: DO NOT RESUSCITATE. FAMILY HISTORY: Noncontributory. SOCIAL HISTORY: He is retired. He lives at [facility]. He has 4 children. He quit smoking in 1988. There is no history of alcohol or illicit drug use. REVIEW OF SYSTEMS: GENERAL: Positive for fatigue. Negative for fever or weight changes. HEENT: Negative for sinus symptoms, ear pain, vision changes or sore throat. RESPIRATORY: Positive for shortness of breath. Negative for wheezing or cough. CARDIAC: Negative for chest pain, palpitations or tachycardia. GASTROINTESTINAL: Negative for abdominal pain, nausea, vomiting, diarrhea or constipation, although he did say he has had constipation in the last few weeks. He thinks it has resolved. GENITOURINARY: Negative for hematuria, dysuria or polyuria. MUSCULOSKELETAL: Positive for left groin pain. Negative for arthralgias or myalgias. SKIN: Negative for lesions or rashes. NEUROLOGIC: Negative for headaches, dizziness or seizures. PHYSICAL EXAMINATION: VITAL SIGNS: Temperature 98.4, heart rate 88, blood pressure 169/87, respiratory rate 22, O2 sat 95% on 2 liters nasal cannula. GENERAL: This is an 88 year-old male patient who looks younger than his stated age. He is in no acute distress. HEENT: Normocephalic and atraumatic. Pupils are equal and reactive. Oropharynx is clear. NECK: Supple without mass. RESPIRATORY: Essentially clear to auscultation bilaterally. CHEST: There is equal rise and fall of the chest with inspiration and expiration. CARDIOVASCULAR: Regular rate and rhythm. GASTROINTESTINAL: Abdomen is soft, nondistended, non-tender. Bowel sounds are positive. He does have some tenderness to the left groin. There is no rebound tenderness or guarding. EXTREMITIES: Bilateral pitting edema that extends up to his mid calf. No cyanosis or clubbing. Bilateral pedal pulses are palpable at +1. NEUROLOGIC: He is awake, alert and oriented times three. Cranial nerves II-XII are grossly intact. LABORATORY: Labs and films are as per the History of Present Illness. ASSESSMENT: 1. Chronic iron-deficiency anemia with an admitting hemoglobin of 7.1. 2. Exacerbation of congestive heart failure with a BNP of 1,670, diastolic in etiology. His ejection fraction was 57% per echocardiogram in 2009. 3. Left groin pain time 1 week, was treated with antibiotics due to his symptoms, although his original urinalysis was contaminated. 4. Chronic renal insufficiency. His admitting creatinine was 1.33. Baseline creatinine is about 1.3. 5. Chronic obstructive pulmonary disease without signs or symptoms of acute exacerbation. 6. Coronary artery disease. 7. Hyperlipidemia. 8. Hypertension. PLAN: We will admit the patient to the hospital. He has been typed and crossed for 2 units of packed red blood cells. Will also start him on some IV Lasix and initiate the congestive heart failure guidelines. He is on a beta amrit. His medications have not bee verified, but he is allergic to Arley inhibitors and I do not see an ARB listed. He does take Furosemide. I will have a CT of the abdomen and pelvis done this evening. He may need a sonogram tomorrow depending on the results. I will also get a urinalysis and restart his home medications when they have been verified. He is on a proton pump inhibitor for ulcer prophylaxis. He is on Eliquis and we will continue and that will be sufficient for DVT prophylaxis. He will be on the athletic monitor. Once we get the results of the urinalysis and the CT we can treat as needed and give antibiotics as needed. Otherwise we will continue to monitor closely and follow as needed. #[id number] [facility]
[2019-02-13] MEDS ORDERED: diphenhydrAMINE HCL 50 MG/ML VIAL IV ONE (17:54)
[2019-02-13] MEDS ORDERED: SODIUM CHLORIDE 0.9% 500ML 500 ML IVS SCH (18:00)
[2019-02-13] MEDS ORDERED: SODIUM CHLORIDE 0.9% (FLUSH) 10 ML SYG IV PRN (18:02)
[2019-02-13] MEDS ORDERED: ONDANSETRON INJ 4 MG/2 ML VIAL IV PRN (18:02)
[2019-02-13] MEDS ORDERED: NITROGLYCERIN 0.4 MG 25 EA TAB SL PRN (18:02)
[2019-02-13] MEDS ORDERED: ALBUTEROL SULFATE 2.5 MG/3 ML VIAL NEB PRN (18:11)
[2019-02-13] MEDS: IV SET AND CAP CHANGE INJ INJ SCH (19:51)
--- NOTE | 2019-02-13 19:52 | CT ---
EXAM DESCRIPTION: Abdoment/Pelvis w/o Contrast CLINICAL HISTORY: 88 years Male left groin pain COMPARISON: 10/05/2017. TECHNIQUE: Contiguous axial images obtained through the abdomen and pelvis without IV contrast. Reformatted images obtained. This exam was performed according to our department optimization program which includes automated exposure control, adjustment of the mA and/or kv according to patient size and/or use of iterative reconstruction technique. FINDINGS: There is scarring/atelectasis in the lower lungs. Changes from previous sternotomy. Coronary artery calcifications. Moderate hiatal hernia. The liver appears unremarkable. The spleen and pancreas appear unremarkable. No adrenal masses. The kidneys appear unremarkable. No hydronephrosis or definite ureteral calculi. There are gallstones in the gallbladder. Atherosclerotic calcifications. No aneurysmal dilatation of the aorta. No bowel obstruction. The appendix appears unremarkable. There is colonic diverticulosis most pronounced involving the sigmoid colon. There is wall thickening in the rectum with stranding in the adjacent fatty tissues suggesting the possibility of proctitis. Walton catheter in urinary bladder. Urinary bladder wall appears slightly thickened which could be from incomplete distention. Clinical and laboratory correlation recommended to exclude the possibility of cystitis. The prostate gland is mildly enlarged. There are hydroceles greater on the left. There is a tiny gas bubble at the base of the penis on the left which is nonspecific. Changes from infectious process or not excluded. Clinical correlation is recommended. There is stranding in the subcutaneous fatty tissues likely from edema. There are small fat-containing inguinal hernias. There are changes from repair of the previously visualized ventral abdominal wall hernia. Degenerative changes in the spine. Mild compression fracture deformity at L1 which was not visualized on the previous study. Correlation with point tenderness is recommended. IMPRESSION: There is wall thickening in the rectum with surrounding inflammatory changes. The findings could be secondary to proctitis. Clinical correlation is recommended. There appears to be a small gas bubble in the soft tissues of the base of the penis on the left. Clinical correlation recommended. The possibility of an infectious process is not totally excluded on this study. There are small hydroceles greater on the left. The urinary bladder wall appears thickened which could be from incomplete distention. Clinical and laboratory correlation is recommended to exclude the possibility of cystitis. Cholelithiasis. Mild compression fracture deformity at L1 which is new since the previous study. Correlation with point tenderness is recommended. Other findings as above. Electronically signed by: Galo Jay MD 02/13/2019 7:50 PM [facility]
[2019-02-13] MEDS: IPRATROPIUM/ALBUTEROL 3 ML VIAL NEB SCH (20:50)
[2019-02-13] MEDS ORDERED: APIXABAN 5 MG TAB PO ONE (21:00)
[2019-02-13] MEDS ORDERED: levoFLOXacin 250MG IV 50 ML IVPB ONE (22:45)
[2019-02-13] MEDS: levoFLOXacin 250MG IV 250 MG in PREMIX BAG 1 BAG IVPB SCH (23:31)
[2019-02-14] MEDS ORDERED: NYSTATIN POWDER 15GM BTTL TOP PRN (01:47)
[2019-02-14] MEDS ORDERED: carBAMazepine 200 MG TAB ONE ×2 (02:15→07:22)
[2019-02-14] MEDS: CARBAMAZEPINE 400 MG PO SCH ×3 (02:20→20:32)
[2019-02-14] MEDS: PANTOPRAZOLE SODIUM IV 40 MG VIAL IV SCH (06:02)
[2019-02-14] MEDS: SUCRALFATE 1 GM TAB PO SCH ×4 (06:02→20:34)
[2019-02-14] MEDS ORDERED: SUCRALFATE 1 GM TAB PO SCH (07:00)
[2019-02-14] MEDS ORDERED: DULoxetine HCL 30 MG CAP PO ONE (07:22)
--- NOTE | 2019-02-14 07:40 | RAD ---
EXAM DESCRIPTION: Chest,2 Views CLINICAL HISTORY: CHF COMPARISON: February 13, 2019 FINDINGS: A right-sided Mediport device remains in place without apparent complication. Several superimposed EKG leads. Postoperative changes in the mediastinum, stable. Mural calcification in the thoracic aorta. The cardiomediastinal silhouette is unremarkable. Bilateral interstitial opacities with some patchy alveolar opacity in the left lung base. Tiny bilateral pleural effusions. There is no pneumothorax or acute fracture. IMPRESSION: Interstitial edema, patchy left basilar airspace edema or atelectasis and tiny bilateral pleural effusions, all unchanged from yesterday. Findings are consistent with provided history of CHF. No new abnormality or other significant interval change. Electronically signed by: Cliff Enrique MD 02/14/2019 7:38 AM [facility]
[2019-02-14] MEDS: BIFIDOBACTERIUM INFANTIS 4 MG CAP PO SCH (08:23)
[2019-02-14] MEDS: DUTASTERIDE 0.5 MG CAP PO SCH (08:23)
[2019-02-14] MEDS: POLYETHYLENE GLYCOL 3350 17 GM PCKT PO SCH ×2 (08:24→20:32)
[2019-02-14] MEDS: METOPROLOL SUCCINATE XL 50 MG TAB PO SCH ×2 (08:27→20:34)
[2019-02-14] MEDS: TAMSULOSIN 0.4 MG CAP PO SCH (08:27)
[2019-02-14] MEDS: BUDESONIDE NEBS 0.5 MG/2 ML INH NEB SCH ×2 (08:50→20:51)
[2019-02-14] MEDS: IPRATROPIUM/ALBUTEROL 3 ML VIAL NEB SCH ×4 (08:50→20:51)
[2019-02-14] MEDS: ARFORMOTEROL TARTRATE 15 MCG/2 ML NEB NEB SCH ×2 (08:50→20:51)
[2019-02-14] MEDS ORDERED: DULoxetine HCL 30 MG CAP PO SCH (09:00)
[2019-02-14] MEDS ORDERED: LORATADINE 10 MG TAB PO SCH (09:00)
[2019-02-14] MEDS: FEXOFENADINE 180 MG TAB PO SCH (10:08)
[2019-02-14] MEDS: DULOXETINE DR 60 MG CAPSULE PO SCH (10:08)
[2019-02-14] MEDS: APIXABAN 5 MG TAB PO SCH ×2 (10:09→20:34)
[2019-02-14] MEDS: FUROSEMIDE INJ 40 MG/4 ML VIAL IV SCH ×2 (10:11→18:00)
[2019-02-14] MEDS: FUROSEMIDE 40 MG TAB PO SCH (10:44)
--- NOTE | 2019-02-14 15:06 | PN ---
SUPERVISING PHYSICIAN: Valdez Gilman MD DATE: 02/14/19 SUBJECTIVE: The patient notes his pain in his groin is gone today. He has been up ambulating with Physical Therapy. He did have 2 units of packed red blood cells last night without any complications. He does notably get short of breath fairly quickly during ambulation. OBJECTIVE: VITAL SIGNS: Temperature 97.5. Pulse 91. Blood pressure 133/70. Respirations 18. Saturation 99% on room air at rest. GENERAL: The patient is resting comfortably. CHEST: Lung sounds are fairly clear throughout, just diminished towards the bases. HEART: Regular rate and rhythm. ABDOMEN: Soft, nontender. Positive bowel sounds. EXTREMITIES: Trace edema bilaterally. NEUROLOGIC: Alert and oriented times three. LABORATORY: White count 5,300, hemoglobin up to 8.8, hematocrit 27.4 with RBC indices indicating microcytic/hypochromic anemia. Platelet count 182,000. Differential is without a left shift. Chemistries show normal electrolytes, BUN 30, creatinine 1.27. Liver functions all within normal limits. MICROBIOLOGY: Urine culture pending. RADIOLOGY: Chest x-ray this morning per radiologic interpretation shows interstitial edema, patchy left basilar airspace edema and danette bilateral pleural effusions, all unchanged from previously exams, findings consistent with congestive heart failure. ASSESSMENT: 1. Chronic iron-deficiency anemia with an admitting hemoglobin of 7.1. 2. Exacerbation of congestive heart failure with a BNP of 1,670, diastolic in etiology. His ejection fraction was 57% per echocardiogram in 2009. 3. Left groin pain time 1 week, was treated with antibiotics due to his symptoms, although his original urinalysis was contaminated. 4. Chronic renal insufficiency. His admitting creatinine was 1.33. Baseline creatinine is about 1.3. 5. Chronic obstructive pulmonary disease without signs or symptoms of acute exacerbation. 6. Coronary artery disease. 7. Hyperlipidemia. 8. Hypertension. PLAN: We will continue with IV Lasix today and working with physical therapy. I did review previous culture results showing an E. coli that was resistant to Levaquin, but culture right now is pending. I will touch base with Dr. Rodas to see if he recommends any additional coverage given the findings on the previous exam. He remains on DVT prophylaxis. Until the patient can transition to outpatient management, we will continue to monitor and treat as needed. [id number]
[2019-02-14] MEDS: REVEFENACIN 175 MCG INH SCH (18:51)
[2019-02-14] MEDS ORDERED: levoFLOXacin 250MG IV 50 ML IVPB ONE (19:18)
[2019-02-14] MEDS: ALPRAZolam 0.25 MG TAB PO PRN (20:33)
[2019-02-14] MEDS: SIMVASTATIN 20 MG TAB PO SCH (20:34)
[2019-02-14] MEDS: levoFLOXacin 250MG IV 250 MG in PREMIX BAG 1 BAG IVPB SCH (21:47)
[2019-02-15] MEDS: SUCRALFATE 1 GM TAB PO SCH ×4 (06:05→20:20)
[2019-02-15] MEDS: PANTOPRAZOLE SODIUM IV 40 MG VIAL IV SCH (06:05)
[2019-02-15] MEDS: IPRATROPIUM/ALBUTEROL 3 ML VIAL NEB SCH ×4 (08:30→20:45)
[2019-02-15] MEDS: REVEFENACIN 175 MCG INH SCH (08:30)
[2019-02-15] MEDS: ARFORMOTEROL TARTRATE 15 MCG/2 ML NEB NEB SCH ×2 (08:30→20:45)
[2019-02-15] MEDS: BUDESONIDE NEBS 0.5 MG/2 ML INH NEB SCH ×2 (08:30→20:45)
[2019-02-15] MEDS: APIXABAN 5 MG TAB PO SCH ×2 (09:16→20:20)
[2019-02-15] MEDS: FUROSEMIDE INJ 40 MG/4 ML VIAL IV SCH ×2 (09:16→16:54)
[2019-02-15] MEDS: METOPROLOL SUCCINATE XL 50 MG TAB PO SCH ×2 (09:16→20:20)
[2019-02-15] MEDS: DULOXETINE DR 60 MG CAPSULE PO SCH (09:16)
[2019-02-15] MEDS: BIFIDOBACTERIUM INFANTIS 4 MG CAP PO SCH (09:16)
[2019-02-15] MEDS: DUTASTERIDE 0.5 MG CAP PO SCH (09:16)
[2019-02-15] MEDS: TAMSULOSIN 0.4 MG CAP PO SCH (09:16)
[2019-02-15] MEDS: FEXOFENADINE 180 MG TAB PO SCH (09:17)
[2019-02-15] MEDS: CARBAMAZEPINE 400 MG PO SCH ×2 (09:17→20:19)
[2019-02-15] MEDS: POLYETHYLENE GLYCOL 3350 17 GM PCKT PO SCH ×2 (09:20→20:21)
[2019-02-15] MEDS: ACETAMINOPHEN 325 MG TAB PO PRN (15:22)
[2019-02-15] MEDS ORDERED: CEFEPIME 2 GM in SODIUM CHL 0.9% 50ML MIN-BAG+ 50 ML IVPB ONE (18:04)
[2019-02-15] MEDS ORDERED: SODIUM CHL 0.9% 100ML MINI-BAG 100 ML IVPB ONE (18:24)
[2019-02-15] MEDS ORDERED: SODIUM CHL 0.9% 50ML MIN-BAG+ 50 ML IVPB ONE (18:25)
[2019-02-15] MEDS: FUROSEMIDE 40 MG TAB PO SCH (18:28)
[2019-02-15] MEDS ORDERED: levoFLOXacin 250MG IV 50 ML IVPB ONE (19:15)
[2019-02-15] MEDS: ALPRAZolam 0.25 MG TAB PO PRN (20:21)
[2019-02-15] MEDS: SIMVASTATIN 20 MG TAB PO SCH (20:21)
[2019-02-15] MEDS: levoFLOXacin 250MG IV 250 MG in PREMIX BAG 1 BAG IVPB SCH (21:56)
[2019-02-16] MEDS: SUCRALFATE 1 GM TAB PO SCH ×4 (06:11→20:32)
[2019-02-16] MEDS: PANTOPRAZOLE SODIUM IV 40 MG VIAL IV SCH (06:11)
--- NOTE | 2019-02-16 08:49 | PN ---
SUPERVISING PHYSICIAN: Valdez Gilman MD DATE: 02/15/19 SUBJECTIVE: The patient actually is doing well. His shortness of breath is much less. It was noted that his Walton was not exchanged on admission when the sample was collected. I did discuss with him that we would need to exchange that today and repeat a urine on him and possibly have to reevaluate antibiotic coverage based on those findings. The initial culture that was sent is still pending and a review of cultures from previous months showed he did grow an E. coli that was resistant to fluoroquinolones. He does remain afebrile. He has been ambulating with Physical Therapy. OBJECTIVE: VITAL SIGNS: He remains afebrile. Temperature 97.2. Pulse 84. Blood pressure 125/70. Respirations 18. Saturation 100% on nasal cannula at 2 liters. I&Os showing negative balance of 3200. Weight 87.2 kg. GENERAL: The patient is resting comfortably, appears to be in no acute distress. CHEST: Lung sounds are diminished towards the bases, but are fairly clear. HEART: Regular rate and rhythm. ABDOMEN: Soft, nontender. Positive bowel sounds. EXTREMITIES: Without edema today. NEUROLOGIC: Alert and oriented times three. LABORATORY: Hemoglobin and hematocrit stable at 8.8 and 27.3. Chemistries stable with potassium 4.2, BUN 30, creatinine 1.21. Repeat urinalysis after exchange of the Walton catheter showed a moderate amount of blood with microscopic revealing too numerous to count RBCs, 30 to 40 WBCs, 0 epithelial, 4+ bacteria, small amount of mucus. MICROBIOLOGY: Urine culture pending. Another culture is pending from exchange of catheter today. RADIOLOGY: No repeat radiology today. ASSESSMENT: 1. Chronic iron-deficiency anemia requiring frequent transfusions. 2. Exacerbation of congestive heart failure with initial BNP of 1,670, diastolic in etiology, with ejection fraction 57% on last echocardiogram in 2009 with repeat echocardiogram pending. 3. Left groin pain times one week prior to admission, treated with antibiotics, with concern for possible prostatitis on CT findings with cultures pending with repeat urinalysis after catheter exchange today showing little to no improvement in his urinalysis indicating possible failure of treatment antibiotic coverage requiring initiation of cefepime awaiting final culture results. 4. Chronic renal insufficiency, improving. 5. Chronic obstructive pulmonary disease without signs or symptoms of exacerbation. 6. Coronary artery disease. 7. Hypertension. 8. Hyperlipidemia. PLAN: He has been transitioned to oral Lasix. We will get an echocardiogram in the morning. I did start him on cefepime after we did exchanged of his catheter today which showed 4+ bacteria with concerns of failure of treatment from the Levaquin. We will await before we discontinue the Levaquin given the questionable prostatitis until we get culture results back. He remains on DVT prophylaxis. We will follow his hemoglobin and hematocrit as needed. We will anticipate discharge once we have culture results back and can adequately target antibiotic therapy. #[id number] [facility]
[2019-02-16] MEDS: CARBAMAZEPINE 400 MG PO SCH ×2 (09:07→20:33)
[2019-02-16] MEDS: FEXOFENADINE 180 MG TAB PO SCH (09:07)
[2019-02-16] MEDS: APIXABAN 5 MG TAB PO SCH ×2 (09:08→20:33)
[2019-02-16] MEDS: DULOXETINE DR 60 MG CAPSULE PO SCH (09:08)
[2019-02-16] MEDS: REVEFENACIN 175 MCG INH SCH (09:30)
[2019-02-16] MEDS: ARFORMOTEROL TARTRATE 15 MCG/2 ML NEB NEB SCH ×2 (09:30→19:50)
[2019-02-16] MEDS: IPRATROPIUM/ALBUTEROL 3 ML VIAL NEB SCH ×4 (09:30→20:35)
[2019-02-16] MEDS: BUDESONIDE NEBS 0.5 MG/2 ML INH NEB SCH ×2 (09:30→19:50)
[2019-02-16] MEDS: DUTASTERIDE 0.5 MG CAP PO SCH (12:03)
[2019-02-16] MEDS: TAMSULOSIN 0.4 MG CAP PO SCH (12:03)
[2019-02-16] MEDS: BIFIDOBACTERIUM INFANTIS 4 MG CAP PO SCH (12:03)
[2019-02-16] MEDS: METOPROLOL SUCCINATE XL 50 MG TAB PO SCH ×2 (12:04→20:32)
[2019-02-16] MEDS: POLYETHYLENE GLYCOL 3350 17 GM PCKT PO SCH ×3 (12:04→20:36)
[2019-02-16] MEDS ORDERED: SODIUM CHL 0.9% 50ML MIN-BAG+ 50 ML IVPB ONE ×2 (12:08→19:04)
[2019-02-16] MEDS ORDERED: CEFEPIME 2 GM VIAL ONE ×2 (12:08→19:05)
[2019-02-16] MEDS: CEFEPIME 2 GM in SODIUM CHL 0.9% 50ML MIN-BAG+ 50 ML IVPB SCH ×2 (12:10→23:03)
--- NOTE | 2019-02-16 16:42 | PN ---
DATE: 02/16/19 SUPERVISING PHYSICIAN: Valdez Gilman M.D. SUBJECTIVE: The patient is sitting up in a chair. He said he feels good today. He has walked in the [place] approximately 200 feet per Physical Therapy. I believe that is probably around his baseline at this point. He does not complain of any pain or shortness of breath at this time. OBJECTIVE: VITAL SIGNS: Blood pressure 128/70, heart rate 71, respiratory rate 16, temperature 98.0, oxygen saturation 99%. GENERAL: Mr. Montaño is an 88 year-old male patient who is in no active distress currently. NEUROLOGIC: The patient is alert and oriented. LUNGS: Diminished in the bases but otherwise clear to auscultation bilaterally. CARDIOVASCULAR: The patient has a regular rate and rhythm. Normal S1 and S2. ABDOMEN: Soft, positive bowel sounds. EXTREMITIES: Lower extremities with no edema. ASSESSMENT: 1. Congestive heart failure exacerbation which is step-martinez improving. 2. Anemia requiring packed red blood cell transfusion. 3. Urinary tract infection with possible prostatitis. 4. Chronic renal insufficiency, improving. 5. Chronic obstructive pulmonary disease with no exacerbation. 6. Coronary artery disease. 7. Hypertension. 8. Hyperlipidemia. PLAN: At this point we will continue the p.o. Lasix as well as the antibiotic therapy. Looks like he did get a dose of Cefepime yesterday but it was not continuous, so I will order Cefepime b.i.d. for him. I will discontinue the Levaquin as the last culture he had was within the last 2 weeks and it showed a resistant strain of Escherichia coli. Cefepime should be sufficient for his infection at this time. I will hold off on any p.o. antibiotics until we have a sensitivity back. Hemoglobin is stable and will continue to monitor this as well and recheck labs as well as chest x-ray in the morning. #[id number] [facility]
[2019-02-16] MEDS: IV SET AND CAP CHANGE INJ INJ SCH (20:32)
[2019-02-16] MEDS: SIMVASTATIN 20 MG TAB PO SCH (20:33)
[2019-02-16] MEDS: ACETAMINOPHEN 325 MG TAB PO PRN (20:34)
[2019-02-16] MEDS: ALPRAZolam 0.25 MG TAB PO PRN (20:35)
[2019-02-17] MEDS: PANTOPRAZOLE SODIUM IV 40 MG VIAL IV SCH (06:35)
[2019-02-17] MEDS: SUCRALFATE 1 GM TAB PO SCH ×4 (06:36→20:55)
[2019-02-17] MEDS: IPRATROPIUM/ALBUTEROL 3 ML VIAL NEB SCH ×4 (08:17→20:02)
[2019-02-17] MEDS: BUDESONIDE NEBS 0.5 MG/2 ML INH NEB SCH ×2 (08:17→20:02)
[2019-02-17] MEDS: ARFORMOTEROL TARTRATE 15 MCG/2 ML NEB NEB SCH ×2 (08:17→20:02)
[2019-02-17] MEDS: REVEFENACIN 175 MCG INH SCH (08:17)
[2019-02-17] MEDS: BIFIDOBACTERIUM INFANTIS 4 MG CAP PO SCH (08:30)
[2019-02-17] MEDS: METOPROLOL SUCCINATE XL 50 MG TAB PO SCH ×2 (08:30→20:55)
[2019-02-17] MEDS: POLYETHYLENE GLYCOL 3350 17 GM PCKT PO SCH ×2 (08:30→20:55)
[2019-02-17] MEDS: DUTASTERIDE 0.5 MG CAP PO SCH (08:30)
[2019-02-17] MEDS: DULOXETINE DR 60 MG CAPSULE PO SCH (08:31)
[2019-02-17] MEDS: CARBAMAZEPINE 400 MG PO SCH ×2 (08:32→20:56)
[2019-02-17] MEDS: FEXOFENADINE 180 MG TAB PO SCH (08:32)
[2019-02-17] MEDS: TAMSULOSIN 0.4 MG CAP PO SCH (08:33)
[2019-02-17] MEDS: APIXABAN 5 MG TAB PO SCH ×2 (08:33→20:55)
--- NOTE | 2019-02-17 10:14 | RAD ---
EXAM DESCRIPTION: XR CHEST 1 VIEW CLINICAL HISTORY: 88 years Male, [facility] COMPARISON: 02/14/2019 Findings: Right chest wall port tip overlying the SVC. Median sternotomy. Borderline cardiomegaly. Increased pulmonary vascular congestion. Increased interstitial airspace disease bilaterally. No focal consolidation. Small bilateral pleural effusions. No pneumothorax. No acute osseous abnormality. IMPRESSION: Increased CHF/volume overload with small bilateral pleural effusions. Electronically signed by: Deandre Piña MD 02/17/2019 8:03 AM [facility]
[2019-02-17] MEDS ORDERED: FUROSEMIDE INJ 20 MG/2 ML VIAL IV SCH (10:30)
[2019-02-17] MEDS ORDERED: CEFEPIME 2 GM VIAL ONE ×2 (11:17→19:49)
[2019-02-17] MEDS ORDERED: SODIUM CHL 0.9% 50ML MIN-BAG+ 50 ML IVPB ONE ×2 (11:17→19:48)
[2019-02-17] MEDS: CEFEPIME 2 GM in SODIUM CHL 0.9% 50ML MIN-BAG+ 50 ML IVPB SCH ×2 (11:32→23:16)
--- NOTE | 2019-02-17 14:28 | PN ---
SUPERVISING PHYSICIAN: Valdez Gilman M.D. DATE: 02/17/19 SUBJECTIVE: The patient states he feels okay today and does not have any complaints. However, nursing states he is a little bit more short of breath today. His Lasix has been on hold due to his acute kidney injury. OBJECTIVE: VITAL SIGNS: Blood pressure 157/67. Heart rate 79. Respiratory rate 22. Temperature 98.1. Oxygen saturation 100% on 2 liters via nasal cannula. GENERAL: Mr. Montaño is an 88-year-old male patient who is a little bit tachypneic, but otherwise in no distress. NEUROLOGIC: The patient is alert and oriented. LUNGS: A little bit of crackles in the bases, but otherwise no wheezing. CARDIOVASCULAR: Regular rate and rhythm. Normal S1 and S2. ABDOMEN: Soft, positive bowel sounds. GENITOURINARY: Deferred. EXTREMITIES: Lower extremities with no significant edema. LABORATORY: Chest x-ray shows some increased pulmonary vascular congestion. Labs were reviewed and show normal white count of 5.0, hemoglobin stable at 8.6, platelet count 216. Chemistry shows sodium 137, potassium 4.3, chloride 104, CO2 22, BUN 32, creatinine 1.06, glucose 101, calcium 7.6. Urine culture has not been officially resulted as of yet, but gram stain is showing gram negative bacilli. ASSESSMENT: 1. Congestive heart failure exacerbation, improving. 2. Anemia, requiring packed red blood cell transfusion. 3. Urinary tract infection with possible prostatitis, which is gram negative bacilli, likely Escherichia coli. 4. Renal insufficiency, stable. 5. Chronic obstructive pulmonary disease with no exacerbation. 6. Coronary artery disease. 7. Hypertension. 8. Hyperlipidemia. PLAN: I am going to give a dose of IV Lasix today. Continue the cefepime until the official sensitivities are available. Hemoglobin stable. Continue all other medications at this time. [id number]
[2019-02-17] MEDS: ALPRAZolam 0.25 MG TAB PO PRN (20:54)
[2019-02-17] MEDS: ACETAMINOPHEN 325 MG TAB PO PRN (20:54)
[2019-02-17] MEDS: SIMVASTATIN 20 MG TAB PO SCH (20:55)
[2019-02-18] MEDS: PANTOPRAZOLE SODIUM IV 40 MG VIAL IV SCH (06:32)
[2019-02-18] MEDS: SUCRALFATE 1 GM TAB PO SCH ×4 (06:33→20:15)
[2019-02-18] MEDS ORDERED: SODIUM CHL 0.9% 50ML MIN-BAG+ 50 ML IVPB ONE ×2 (07:23→18:59)
[2019-02-18] MEDS ORDERED: CEFEPIME 2 GM VIAL ONE ×2 (07:24→19:00)
[2019-02-18] MEDS ORDERED: FUROSEMIDE 40 MG TAB ONE (09:10)
[2019-02-18] MEDS: guaiFENesin ER TAB 600 MG TAB PO SCH ×2 (09:14→20:19)
[2019-02-18] MEDS: BIFIDOBACTERIUM INFANTIS 4 MG CAP PO SCH (09:14)
[2019-02-18] MEDS: APIXABAN 5 MG TAB PO SCH ×2 (09:15→20:17)
[2019-02-18] MEDS: TAMSULOSIN 0.4 MG CAP PO SCH (09:15)
[2019-02-18] MEDS: FUROSEMIDE 40 MG TAB PO SCH (09:15)
[2019-02-18] MEDS: METOPROLOL SUCCINATE XL 50 MG TAB PO SCH ×2 (09:16→20:20)
[2019-02-18] MEDS: POLYETHYLENE GLYCOL 3350 17 GM PCKT PO SCH ×2 (09:16→20:19)
[2019-02-18] MEDS: DULOXETINE DR 60 MG CAPSULE PO SCH (09:18)
[2019-02-18] MEDS: CARBAMAZEPINE 400 MG PO SCH ×2 (09:19→20:16)
[2019-02-18] MEDS: IPRATROPIUM/ALBUTEROL 3 ML VIAL NEB SCH ×4 (09:20→20:31)
[2019-02-18] MEDS: FEXOFENADINE 180 MG TAB PO SCH (09:20)
[2019-02-18] MEDS: BUDESONIDE NEBS 0.5 MG/2 ML INH NEB SCH ×2 (09:20→20:31)
[2019-02-18] MEDS: REVEFENACIN 175 MCG INH SCH (09:20)
[2019-02-18] MEDS: DUTASTERIDE 0.5 MG CAP PO SCH (09:22)
--- NOTE | 2019-02-18 10:52 | PN ---
SUPERVISING PHYSICIAN: Valdez Gilman M.D. DATE: 02/18/19 SUBJECTIVE: The patient states he is breathing a little bit better than he did yesterday. He does not have any complaints at this time other than when he coughs, he feels like he needs to cough something up, but nothing is coming up. OBJECTIVE: VITAL SIGNS: Blood pressure 157/76. Heart rate 77. Respiratory rate 16. Temperature 97.5. Oxygen saturation 99%. GENERAL: Mr. Montaño is an 88-year-old male patient in no active distress. NEUROLOGIC: The patient is alert and oriented. LUNGS: Diminished with right upper lobe rhonchi. No wheezing. CARDIOVASCULAR: Regular rate and rhythm. Normal S1 and S2. ABDOMEN: Soft, positive bowel sounds. EXTREMITIES: Lower extremities with no significant edema. ASSESSMENT: 1. Congestive heart failure exacerbation, improving. 2. Anemia status post packed red blood cell transfusion. 3. Urinary tract infection with gram negative bacilli bacteria pending final sensitivity. 4. Renal insufficiency, stable. 5. Chronic obstructive pulmonary disease with no acute exacerbation. 6. Coronary artery disease. 7. Hypertension. 8. Hyperlipidemia. PLAN: We will resume his p.o. Lasix today. Continue the cefepime until the final sensitivities are available. I will recheck his labs and x-ray tomorrow. I am starting Mucinex on him as well to see if he can cough anything up. [facility][id number] [facility]
[2019-02-18] MEDS: CEFEPIME 2 GM in SODIUM CHL 0.9% 50ML MIN-BAG+ 50 ML IVPB SCH ×2 (11:32→23:31)
[2019-02-18] MEDS: ARFORMOTEROL TARTRATE 15 MCG/2 ML NEB NEB SCH ×2 (12:50→20:31)
[2019-02-18] MEDS: SIMVASTATIN 20 MG TAB PO SCH (20:20)
[2019-02-18] MEDS: ALPRAZolam 0.25 MG TAB PO PRN (21:08)
[2019-02-19] MEDS: PANTOPRAZOLE SODIUM IV 40 MG VIAL IV SCH (06:29)
[2019-02-19] MEDS: SUCRALFATE 1 GM TAB PO SCH ×2 (06:30→15:56)
--- NOTE | 2019-02-19 08:21 | RAD ---
EXAM DESCRIPTION: Chest x-ray two views: CLINICAL HISTORY: CHF/COPD COMPARISON: February 14, 2019 TECHNIQUE: PA and lateral views of the chest were obtained. FINDINGS: Implanted Port-A-Cath is noted placed via right subclavian approach with its tip in the superior vena cava. Evidence of previous median sternotomy The heart is normal in size . The hilar and mediastinal structures are within normal limits. The pulmonary vascularity is normal . Presence of fluid is seen in the fissures with small bilateral pleural effusions. Nonspecific increased interstitial markings are seen in the lung bases. Retrocardiac density compatible with a hiatal hernia is noted. The bony structures are unremarkable. IMPRESSION: Mild CHF and underlying COPD. No interval change. Electronically signed by: Tara Wall MD 02/19/2019 8:19 AM [facility]
[2019-02-19] MEDS: BUDESONIDE NEBS 0.5 MG/2 ML INH NEB SCH (08:30)
[2019-02-19] MEDS: REVEFENACIN 175 MCG INH SCH (08:30)
[2019-02-19] MEDS: IPRATROPIUM/ALBUTEROL 3 ML VIAL NEB SCH ×2 (08:30→12:45)
[2019-02-19] MEDS: ARFORMOTEROL TARTRATE 15 MCG/2 ML NEB NEB SCH (08:30)
[2019-02-19] MEDS ORDERED: FUROSEMIDE INJ 40 MG/4 ML VIAL IV ONE (09:00)
[2019-02-19] MEDS: FUROSEMIDE 40 MG TAB PO SCH (09:33)
[2019-02-19] MEDS: BIFIDOBACTERIUM INFANTIS 4 MG CAP PO SCH (09:48)
[2019-02-19] MEDS: METOPROLOL SUCCINATE XL 50 MG TAB PO SCH (09:49)
[2019-02-19] MEDS: guaiFENesin ER TAB 600 MG TAB PO SCH (09:49)
[2019-02-19] MEDS: POLYETHYLENE GLYCOL 3350 17 GM PCKT PO SCH (09:49)
[2019-02-19] MEDS: DUTASTERIDE 0.5 MG CAP PO SCH (09:49)
[2019-02-19] MEDS: FEXOFENADINE 180 MG TAB PO SCH (09:50)
[2019-02-19] MEDS: CARBAMAZEPINE 400 MG PO SCH (09:50)
[2019-02-19] MEDS: DULOXETINE DR 60 MG CAPSULE PO SCH (09:51)
[2019-02-19] MEDS: APIXABAN 5 MG TAB PO SCH (09:57)
[2019-02-19] MEDS: TAMSULOSIN 0.4 MG CAP PO SCH (09:57)
[2019-02-19] MEDS ORDERED: SODIUM CHLORIDE 0.9% 250ML 250 ML IVS PRN (10:25)
[2019-02-19 10:56] VITALS: O2SAT 100
[2019-02-19] MEDS: CEFEPIME 2 GM in SODIUM CHL 0.9% 50ML MIN-BAG+ 50 ML IVPB SCH (11:30)
[2019-02-19] MEDS ORDERED: FUROSEMIDE INJ 20 MG/2 ML VIAL IV ONE (12:00)
[2019-02-19 14:07] VITALS: TEMP 97.8
[2019-02-19] MEDS ORDERED: FUROSEMIDE INJ 20 MG/2 ML VIAL ONE (15:57)
[2019-02-19 16:28] VITALS: BP 154/77
--- NOTE | 2019-02-19 20:39 | DS ---
SUPERVISING PHYSICIAN: Valdez Gilman M.D. ADMISSION DIAGNOSIS: 1. Iron-deficiency anemia. 2. Exacerbation of congestive heart failure. 3. Urinary tract infection. 4. Chronic renal insufficiency. 5. Chronic obstructive pulmonary disease. 6. Coronary artery disease. 7. Hyperlipidemia. 8. Hypertension. DISCHARGE DIAGNOSIS: 1. Congestive heart failure exacerbation, improved. 2. Anemia status post packed red blood cell transfusion. 3. Urinary tract infection with Escherichia coli with antibiotic resistance. 4. Renal insufficiency. 5. Chronic obstructive pulmonary disease with no acute exacerbation. 6. Coronary artery disease. 7. Hypertension. 8. Hyperlipidemia. HOSPITAL COURSE: This is an 88 year-old male patient who lives at [facility] with a history of anemia and congestive heart failure, who came to the Emergency Room due to groin pain, increased swelling and shortness of breath. In the Emergency Room his vital signs were acceptable. No elevation in white count. He did have a hemoglobin at 7.1. He was tachypneic and short of breath. Lung sounds are chronically abnormal with diminished sounds and wheezing. He was also shown to have an elevated BNP and a chest x-ray with some pulmonary edema. Regarding the groin pain, it was felt that he probably had a urinary tract infection, so a urinalysis was done. He was placed on some diuretic therapy and also some empiric antibiotics. A review of his previous urinalysis showed Escherichia coli with resistance to Levaquin. He was initially placed on Levaquin prior to having this information. This was then changed to Cefepime. It was changed to Cefepime and the Levaquin was discontinued on Thursday. The patient progressively started to feel better and he diuresed well. He had gotten some packed red blood cells as well and given some Lasix on his admission. At discharge today, his hemoglobin was 8.0. The patient comes in every couple of weeks for blood transfusions. I went ahead and gave him another unit of blood today prior to discharge so that he would not have to come in as often, plus he was a little bit short of breath. He is alert and oriented with no significant shortness of breath. He was discharged today in stable condition. A prescription for Ceftin has been sent to [facility] to complete a 2 week course. He will followup with his primary care physician in a week. Activity is as tolerated. Diet as per the diet he had prior to coming to the hospital. Medications have been resumed as well. #[id number] [facility]
== END 2019-02-19 15:30 | disposition home or self-care (01) | DRG 291 ==
LOC: ER 13:36 → OBSVTOIN 17:17 → MS 17:17
PROVIDERS: ADMIT Nurse Practitioner Acute Care; ATTEND Nurse Practitioner
PROC: 30233N1 Transfusion of Nonautologous Red Blood Cells into Peripheral Vein, Percutaneous Approach (ICD-10-PCS; 2019-02-13)
PROC: 30233N1 Transfusion of Nonautologous Red Blood Cells into Peripheral Vein, Percutaneous Approach (ICD-10-PCS; 2019-02-14)
PROC: 30233N1 Transfusion of Nonautologous Red Blood Cells into Peripheral Vein, Percutaneous Approach (ICD-10-PCS; principal; 2019-02-19)
DX: I13.0 Hypertensive heart and chronic kidney disease with heart failure and stage 1 through stage 4 chronic kidney disease, or unspecified chronic kidney disease (principal); I50.33 Acute on chronic diastolic (congestive) heart failure; N39.0 Urinary tract infection, site not specified; N17.9 Acute kidney failure, unspecified; Z16.23 Resistance to quinolones and fluoroquinolones; D50.9 Iron deficiency anemia, unspecified; J44.9 Chronic obstructive pulmonary disease, unspecified; I25.10 Atherosclerotic heart disease of native coronary artery without angina pectoris; E78.5 Hyperlipidemia, unspecified; B96.20 Unspecified Escherichia coli [E. coli] as the cause of diseases classified elsewhere; Z66 Do not resuscitate; Z95.1 Presence of aortocoronary bypass graft; Z88.8 Allergy status to other drugs, medicaments and biological substances; Z87.891 Personal history of nicotine dependence; Z79.899 Other long term (current) drug therapy; Z79.01 Long term (current) use of anticoagulants

== ENCOUNTER → 2019-04-04 | Outpatient (CLI) | payer MEDICARE, BC | LOC: YCHH 14:16 | PROVIDERS: ATTEND Family Medicine | DX: D50.9 Iron deficiency anemia, unspecified (principal) ==

== ENCOUNTER → 2019-04-13 | Outpatient (CLI) | payer MEDICARE, BC | LOC: YCHH 12:15 | PROVIDERS: ATTEND Family Medicine | DX: N39.0 Urinary tract infection, site not specified (principal) ==

== ENCOUNTER → 2019-04-26 | Outpatient (CLI) | payer MEDICARE, BC | LOC: YCHH 15:09 | PROVIDERS: ATTEND Family Medicine | DX: D50.8 Other iron deficiency anemias (principal); D64.9 Anemia, unspecified ==

== ENCOUNTER → 2019-05-02 | Outpatient (CLI) | payer MEDICARE, BC | LOC: YCHH 09:20 | PROVIDERS: ATTEND Family Medicine | DX: D50.9 Iron deficiency anemia, unspecified (principal) ==

== ENCOUNTER → 2019-05-09 | Outpatient (CLI) | payer MEDICARE, BC | LOC: YCHH 10:08 | PROVIDERS: ATTEND Family Medicine | DX: D64.9 Anemia, unspecified (principal) ==

== ENCOUNTER → 2019-05-16 | Outpatient (CLI) | payer MEDICARE, BC | LOC: YCHH 11:17 | PROVIDERS: ATTEND Family Medicine | DX: D51.9 Vitamin B12 deficiency anemia, unspecified (principal) ==

== ENCOUNTER → 2019-05-23 | Outpatient (CLI) | payer MEDICARE, BC | LOC: YCHH 11:29 | PROVIDERS: ATTEND Family Medicine | DX: K92.2 Gastrointestinal hemorrhage, unspecified (principal); D50.0 Iron deficiency anemia secondary to blood loss (chronic); D63.1 Anemia in chronic kidney disease ==

== ENCOUNTER → 2019-06-20 | Outpatient (CLI) | payer MEDICARE, BC | DX: D64.9 Anemia, unspecified (principal) ==

== ENCOUNTER → 2019-06-27 | Outpatient (CLI) | payer MEDICARE, BC | DX: D50.9 Iron deficiency anemia, unspecified (principal) ==

== ENCOUNTER → 2019-07-04 | Outpatient (CLI) | payer MEDICARE, BC | LOC: YCHH 10:03 | PROVIDERS: ATTEND Family Medicine | DX: K92.2 Gastrointestinal hemorrhage, unspecified (principal); D50.0 Iron deficiency anemia secondary to blood loss (chronic) ==